=== PATIENT | male | born 1935 | race Caucasian/White ===

== ENCOUNTER 2017-06-20 08:45 | Inpatient (IN) | payer MEDICARE, MEDICAID ==
[2017-06-20 09:21] LABS: Hemoglobin 14.4 g/dL (14.0-18.0); Mean Corpuscular HGB CONC 31.7 g/dL (32.0-36.0); Mean Corpuscular Hemoglobin 33.1 pg (27.0-31.0); Mean Platelet Volume 6.5 fL (7.4-10.4); Platelet Count 178 thou/uL (130-400); RBC Distribution Width 13.4 % (11.5-14.5); Red Blood Cell (RBC) Count 4.35 mill/uL (4.70-6.10); White Blood Cell (WBC) Count 18.4 thou/uL (4.8-10.8)
[2017-06-20 09:40] LABS: Band 11 % (5-11); Dohle Bodies SLIGHT; Lymphocytes 1 % (21-51); MDiff Complete? YES; Macrocytosis SLIGHT = 6-15 cells (100X) (0-5/hpf); Monocytes 8 % (0-10); Neutrophil 80 % (42-75); PLT Morphology Comment Appears Adequate; Toxic Granulation SLIGHT; Vacuoles SLIGHT
--- NOTE | 2017-06-20 09:57 | RAD ---
SINGLE VIEW OF THE CHEST: COMPARISON: None. HISTORY: Diarrhea and frequent urination. Diabetic. The patient cannot remember the last time he took his in sulin. FINDINGS: A single view of the chest shows an enlarged cardiomediastinal silhouette. There is no evidence of c onsolidation, mass, or pleural effusion. There is a calcified left hilar lymph node. IMPRESSION: Cardiomegaly. POS: [facility]
[2017-06-20 09:59] LABS: ALT (SGPT) 31 U/L (8-55); AST (SGOT) 24 U/L (5-34); Albumin 3.4 g/dL (3.4-4.8); Alkaline Phosphatase 177 U/L (40-150); Anion Gap 29 mmol/L (10-20); BUN (Urea Nitrogen) 35 mg/dL (8.4-25.7); Bilirubin, Total 0.5 mg/dL (0.2-1.2); CK (CPK) 231 U/L (30-200); Calc. Creatinine Clearance 0 mL/min (70-130); Calcium 9.4 mg/dL (7.8-10.44); Carbon Dioxide 10 mmol/L (23-31); Chloride 97 mmol/L (98-107); Estimated GFR-MDRD 44; Globulin 3.6 g/dL (2.4-3.5); Glucose 445 mg/dL (83-110); Lipase 18 U/L (8-78); Potassium 4.3 mmol/L (3.5-5.1); Sodium 132 mmol/L (136-145)
[2017-06-20 10:04] LABS: CKMB 6.2 ng/mL (0-6.6)
--- NOTE | 2017-06-20 10:08 | RAD ---
LEFT FOOT 3 VIEWS: HISTORY: Diabetic foot ulcer. Left foot pain. FINDINGS: Lisfranc joint alignment is anatomic. There is pes planus on the lateral view. Prominent osteophyto sis is present throughout the foot. Plantar and Achilles enthesophytes arise from the posterior aspe ct of the calcaneus. There is deformity of the 1st metatarsal head and base of the proximal phalanx with complete loss of joint space and prominent osteophytosis. Subcortical cysts involve each side of the joint. Partial fusion is suspected. There is minimal hallux valgus. No radiopaque foreign bodies or soft tissue gas are apparent. 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 POS: [facility]
[2017-06-20 10:23] LABS: Troponin I 0.992 ng/mL (< 0.028)
[2017-06-20] MEDS ORDERED: Piperacillin/Tazobactam 4.5 GM in Sodium Chloride 0.9% 100 ML IVPB SCH (10:30)
[2017-06-20 10:31] LABS: Actual Bicarbonate (HCO3a) 10.1 mEq/L (22-26); Base Excess (BEa) -14.2 mEq/L (0 (+/-) 2.5); CO2 Tension 21.4 mmHg (35.0-45.0); Hematocrit-ABG 46.9 % (42.0-52.0); Hemoglobin (Hb) 14.3 g/dL (14.0-18.0); O2 Tension (PaO2) 90.4 mmHg (80.0-100.0); pH, Arterial 7.29 (7.35-7.45)
[2017-06-20 10:32] LABS: Analyzer IN Cardio ER; Calcium, Ionized 1.2 mmol/L (1.12-1.30); Puncture Site LRA
[2017-06-20] MEDS ORDERED: Insulin Regular 300 UNITS/3 ML VIAL ONE (10:46)
[2017-06-20 10:49] LABS: Magnesium 2.1 mg/dL (1.6-2.6); Phosphorus 3.1 mg/dL (2.3-4.7)
[2017-06-20] MEDS ORDERED: Insulin Regular 100 units/100 ml in NS IVPB SCH ×2 (11:00→20:45)
[2017-06-20] MEDS ORDERED: NS 0.9% w/ 20 MEQ KCL 1,000 ML IV PRN ×2 (11:24)
[2017-06-20] MEDS ORDERED: Ondansetron HCl/PF 4 MG/2 ML Vial IVP PRN (11:24)
[2017-06-20] MEDS ORDERED: CCU Electrolyte Replacement 1 EACH IVPB ONE (11:24)
[2017-06-20] MEDS ORDERED: Ondansetron ODT 4 MG TAB PO PRN (11:24)
[2017-06-20] MEDS ORDERED: Sodium Chloride 0.9% 1,000 ML IV PRN ×4 (11:24)
[2017-06-20] MEDS ORDERED: Dextrose 5 %-0.45 % NaCl 1,000 ML IV PRN (11:24)
[2017-06-20] MEDS ORDERED: D5 1/2 NS w/20 mEq KCL 1,000 ML IV PRN (11:24)
[2017-06-20] MEDS ORDERED: Potassium Chloride 40 MEQ in Premix Bag 1 BAG IVPB PRN (11:45)
[2017-06-20] MEDS ORDERED: Potassium Phosphate 15 MMOL in Sodium Chloride 0.9% 250 ML 250 ML IV PRN (11:45)
[2017-06-20] MEDS ORDERED: Potassium Phosphate 12 MMOL in Sodium Chloride 0.9% 250 ML 250 ML IV PRN (11:45)
[2017-06-20] MEDS ORDERED: Magnesium 2 GM/NS 0.9% 100 ML 2 GM in Premix Bag 1 BAG IVPB PRN (11:45)
[2017-06-20] MEDS ORDERED: Potassium Phosphate 9 MMOL in Sodium Chloride 0.9% 100 ML IVPB PRN (11:45)
[2017-06-20] MEDS ORDERED: Magnesium Oxide 400 MG TAB PO PRN ×2 (11:45)
[2017-06-20] MEDS ORDERED: Potassium Chloride 40 MEQ in Sodium Chloride 0.9% 250 ML 250 ML IVPB PRN (11:45)
[2017-06-20] MEDS ORDERED: CCU ELECTROLYTE REPLACEMENT PROTOCOL FS PRN (11:45)
[2017-06-20] MEDS ORDERED: Bacitracin Zinc 1 Packet ONE (12:14)
[2017-06-20 12:23] LABS: Anion Gap 29 mmol/L (10-20); BUN (Urea Nitrogen) 36 mg/dL (8.4-25.7); Calc. Creatinine Clearance 0 mL/min (70-130); Calcium 8.9 mg/dL (7.8-10.44); Carbon Dioxide 10 mmol/L (23-31); Chloride 101 mmol/L (98-107); Estimated GFR-MDRD 46; Glucose 367 mg/dL (83-110); Potassium 4.1 mmol/L (3.5-5.1); Sodium 136 mmol/L (136-145)
[2017-06-20 13:17] LABS: Bilirubin Moderate (Negative); Blood, Urine Large (Negative); Clarity CLOUDY (Clear); Glucose, Urine (Dipstick) >=1000 mg/dL (Negative); Leukocyte Small (Negative); Nitrite Negative (Negative); Protein, Urine (Dipstick) 100 mg/dL (Neg-Trace); Specific Gravity, Urine 1.034 (1.002-1.036); Urobilinogen 0.2 mg/dL (0.2-1.0); pH, Urine 5.5 (5.0-9.0)
[2017-06-20 13:19] LABS: Hyaline Casts/LPF 0-3 HYALINE CAST LPF (0-3 Hyaline); Pathc Cast-AUWi Flag 0.13 (0-2.49); Squamous Epithelial 0-3 HPF (0-3)
[2017-06-20 13:22] LABS: Yeast-AUWi Flag 175.7 (0-25.0)
[2017-06-20 13:32] LABS: Bacteria/HPF 3+ HPF (None Seen); Yeast-All Forms None Seen HPF (None Seen)
[2017-06-20 13:42] LABS: Lactic Acid 3.4 mmol/L (0.5-2.2)
[2017-06-20 15:43] LABS: Troponin I 1.075 ng/mL (< 0.028)
[2017-06-20 16:23] LABS: Anion Gap 21 mmol/L (10-20); BUN (Urea Nitrogen) 38 mg/dL (8.4-25.7); Calc. Creatinine Clearance 0 mL/min (70-130); Calcium 9.5 mg/dL (7.8-10.44); Carbon Dioxide 16 mmol/L (23-31); Chloride 104 mmol/L (98-107); Estimated GFR-MDRD 45; Glucose 222 mg/dL (83-110); Potassium 3.9 mmol/L (3.5-5.1); Sodium 137 mmol/L (136-145)
[2017-06-20 18:43] LABS: Anion Gap 18 mmol/L (10-20); BUN (Urea Nitrogen) 38 mg/dL (8.4-25.7); Calc. Creatinine Clearance 64 mL/min (70-130); Carbon Dioxide 16 mmol/L (23-31); Chloride 107 mmol/L (98-107); Estimated GFR-MDRD 51; Glucose 177 mg/dL (83-110); Potassium 4.1 mmol/L (3.5-5.1); Sodium 137 mmol/L (136-145)
[2017-06-20 18:55] LABS: Troponin I 1.366 ng/mL (< 0.028)
[2017-06-20] MEDS: Piperacillin/Tazobactam 3.375 GM in Sodium Chloride 0.9% 100 ML IVPB SCH ×2 (19:45→23:57)
[2017-06-20] MEDS: Acetaminophen 650 MG Suppository PR PRN (19:47)
--- NOTE | 2017-06-20 19:54 | RAD ---
PORTABLE CHEST: 06/20/17 HISTORY: Shortness of breath. COMPARISON: Comparison made to film earlier today at 9:34 a.m. FINDINGS/IMPRESSION: Mild cardiomegaly again noted. Calcified lymph nodes again seen in the mediastinum. The lungs remain clear. No interval change noted. POS: [facility]
[2017-06-20 20:03] LABS: Actual Bicarbonate (HCO3a) 18.7 mEq/L (22-26); Base Excess (BEa) -3.2 mEq/L (0 (+/-) 2.5); CO2 Tension 25.8 mmHg (35.0-45.0); Hematocrit-ABG 43.9 % (42.0-52.0); Hemoglobin (Hb) 14.1 g/dL (14.0-18.0); O2 Tension (PaO2) 77.1 mmHg (80.0-100.0); pH, Arterial 7.48 (7.35-7.45)
[2017-06-20 20:04] LABS: Calcium, Ionized 1.2 mmol/L (1.12-1.30); Puncture Site LRA
[2017-06-20] MEDS ORDERED: Dextrose 50% Abboject 50 ML SYRINGE SLOW IVP PRN (20:24)
[2017-06-20] MEDS ORDERED: Dextrose 5% in Water 1,000 ML IV PRN (20:24)
[2017-06-20] MEDS: Sodium Chloride 0.9% 1,000 ML IV SCH (20:39)
[2017-06-20] MEDS ORDERED: Vancomycin HCl 1 GM in Premix Bag 1 BAG IVPB SCH (21:00)
--- NOTE | 2017-06-20 21:02 | CON ---
DATE OF CONSULTATIONS: 06/20/2017 REASON FOR CONSULTATION: Shortness of breath, nonsustained. HISTORY OF PRESENT ILLNESS: Mr. Cordero is a very pleasant 81-year-old white gentleman who comes to the hospital for increased shortness of breath and diarrhea. He came in via EMS as he was having a lot of frequent urination with diarrhea for the last week. He has a diagnosis of type 2 diabetes and has not had any diabetic medications for a long long time. He lives alone. He really does not get any help, does not go to doctor visits. He has been eating and drinking and this is all per chart review . Denies any fever or chills. No chest pain, tightness, or pressure. On admission, he was diagnose d with urinary tract infection and possible osteomyelitis of the foot and admitted for this. He was also started on insulin drip for concerns of possible DKA. He was also started on IV antibiotics for all this. During his evaluation, troponins were drawn, they were positive, so Cardiology is being c onsulted for this. PAST MEDICAL HISTORY: 1. Type 2 diabetes. 2. Hypertension. 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 PAST SURGICAL HISTORY: 1. Appendectomy. 2. Right wpbev-rcg-bqnp amputation. SOCIAL HISTORY: He drinks whiskey at least five drinks every day. Denies any drug use. He smokes a bout half a pack a day for the last 30 years. OUTPATIENT MEDICATIONS: None. ALLERGIES: ASPIRIN. REVIEW OF SYSTEMS: A 12-point review of system was done; it is all negative unless stated in the his tory of present illness. PHYSICAL EXAMINATION: VITAL SIGNS: Temperature 101, pulse 103, respiration rate 30, satting 94% on 4 liters, blood pressur e 130/76. GENERAL: Awake, alert, oriented x3, in mild respiratory distress. HEENT: Normocephalic, atraumatic. NECK: Supple, no JVD. LUNGS: Have mild crackles at the bilateral bases. These are dry as they improve with cough and tach ypneic. CARDIOVASCULAR: S1, S2. No S3 or S4, mildly tachycardic. There is a grade 2/6 systolic murmur in t he right upper sternal border. ABDOMEN: Soft. Positive bowel sounds. EXTREMITIES: No edema. SKIN: Warm and dry. LABORATORY WORK: Reviewed. White count 18,000, hemoglobin 14, hematocrit 45, platelet count of 178. ABG on admission; pH was 7.29 with a CO2 of 21, improved now at 7.48 with a CO2 of 25. Chemistries initially, creatinine at 1.51, lactic acid was 2.6. BNP was 1461, troponin went from 0.9 to 1.03 to 1.07 to 1.36. Creatinine has improved now to 1.34 and glucose initially 445, down to 161 now. Lipase was normal. Albumin of 3.4. EKG is reviewed. Chest x-ray was reviewed on admission, did not show any acute cardiopulmonary issues. Repeat chest x -ray now due to increased shortness of breath shows stable chest x-ray which would support my physica l exam. ASSESSMENT: 1. Non-ST elevation myocardial infarction: Most likely demand ischemia from septic type picture. 2. Urinary tract infection. 3. Possible osteomyelitis of the foot. 4. Most likely peripheral vascular disease. 5. Tobacco abuse. 6. Poorly controlled diabetes. 7. Metabolic acidosis, most likely due to lactic acidosis and sepsis. 8. Acute hypoxic respiratory insufficiency. PLAN: 1. We will do an echocardiogram to assess LV function and valvular structures. 2. Doubt that he has DKA. His sugar is better. His anion gap is most likely related to lactic acid osis. We will stop the insulin drip. We will control with sliding scale. We will put him on just 1 50 of normal saline for now with no D5. We will transfer him to the ICU overnight to make sure that he is well and that we keep a close eye on him as his likelihood of decompensation is high. 3. Continue IV antibiotics per primary team. Thank you for letting us participate in the care of this patient. We will follow. Over 45 minutes of critical care time was delivered bedside.
--- NOTE | 2017-06-20 22:53 | HP ---
CHIEF COMPLAINT: Diarrhea and frequent urination. HISTORY OF PRESENT ILLNESS: This is an 81-year-old noncompliant patient with history of diabetes, wh o has never been on any insulin for the past 6 years, who presented here via EMS with history of diar harry and frequent urination; however, on presentation, the patient is noted to be febrile with a yoana rely elevated blood sugar and very acidotic consistent with DKA. The patient is now being admitted f or DKA in the context of insulin noncompliance. Patient also noted with some left level lower extrem ity diabetic ulcers, likely the source of sepsis in this patient, the patient seems to be in critical condition and therefore will be admitted to IMCU to be managed very closely. PAST MEDICAL AND SURGICAL HISTORY: Significant for diabetes, poorly controlled type 2, hypertension, right BKA due to diabetic foot infection, status post appendectomy. SOCIAL HISTORY: Significant for alcohol use. Denies illicit drugs. Smokes and has been doing that for more than 30 years. REVIEW OF SYSTEMS: As documented in the body of the history, but the system review in this patient i s highly limited as patient only answer yes to everything. MEDICATIONS: Reviewed but of note, patient is very noncompliant. PHYSICAL EXAMINATION: GENERAL: The patient was found to be ill-looking and noted with the following. VITAL SIGNS: Temperature 101, pulse 103, respiratory rate of 30, O2 sat 94% with blood pressure of 1 30/76. HEENT: Remarkable for dry oral mucosa. No conjunctival injection or icterus. NECK: Supple. CARDIOVASCULAR SYSTEM: First and second heart sounds were heard, tachycardic. RESPIRATORY SYSTEM: Clear to auscultation. DIGESTIVE SYSTEM: Revealed a distended abdomen. EXTREMITIES: No peripheral edema. SKIN: No new gross rash. LYMPHATICS: No peripheral lymphadenopathy. LABORATORY INVESTIGATION: Showed a white count of 18,400. Chemistry showed a creatinine of 1.5, BUN of 38. Urinalysis showed 3+ bacteria with a lot of glucose and ketones. IMPRESSION: 1. Diabetic ketoacidosis in the context of problem #2. 2. Medical noncompliance. 3. Type 2 diabetes mellitus, poorly controlled. 4. Sepsis, query source, possibly from the diabetic foot versus urinary tract infection. 5. Non-ST elevation myocardial infarction. PLAN: 1. The patient is to be admitted to the Critical Care Unit or IMCU (intermediate medical care unit). 2. IV fluid resuscitation. 3. Diabetic ketoacidosis protocol treatment. 4. Broad-spectrum antibiotics, status post blood cultures have been drawn. 5. Cardiology consultation. 6. Further management to be dependent on the clinical course. Condition of patient at this time of dictation is critical. Further management will be dependent on the clinical course.
[2017-06-21] MEDS: HumaLOG 300 UNITS/3 ML VIAL SC PRN ×5 (00:11→20:56)
[2017-06-21] MEDS: Sodium Chloride 0.9% 1,000 ML IV SCH ×2 (05:13→09:47)
[2017-06-21] MEDS: Piperacillin/Tazobactam 3.375 GM in Sodium Chloride 0.9% 100 ML IVPB SCH ×3 (05:15→17:00)
[2017-06-21 06:19] LABS: Anion Gap 20 mmol/L (10-20); BUN (Urea Nitrogen) 47 mg/dL (8.4-25.7); Calc. Creatinine Clearance 62 mL/min (70-130); Calcium 8.6 mg/dL (7.8-10.44); Carbon Dioxide 15 mmol/L (23-31); Cardiac Risk 5.9 (Less than 4.5); Chloride 107 mmol/L (98-107); Cholesterol 107 mg/dl (< 200 Desired); Estimated GFR-MDRD 49; Glucose 342 mg/dL (83-110); HDL Cholesterol 18 mg/dL (>60 Neg Risk); LDL Cholesterol, Calculated 62 mg/dL; Potassium 3.9 mmol/L (3.5-5.1); Sodium 138 mmol/L (136-145); Triglycerides 137 mg/dL (Less than 150)
[2017-06-21 06:20] LABS: Band 14 % (5-11); Hemoglobin 13.1 g/dL (14.0-18.0); Lymphocytes 5 % (21-51); MDiff Complete? YES; Mean Corpuscular HGB CONC 32.1 g/dL (32.0-36.0); Mean Corpuscular Hemoglobin 32.9 pg (27.0-31.0); Mean Platelet Volume 6.8 fL (7.4-10.4); Monocytes 6 % (0-10); Neutrophil 75 % (42-75); Platelet Count 170 thou/uL (130-400); RBC Distribution Width 13.7 % (11.5-14.5); Red Blood Cell (RBC) Count 3.98 mill/uL (4.70-6.10); White Blood Cell (WBC) Count 16.2 thou/uL (4.8-10.8)
[2017-06-21] MEDS ORDERED: Sodium Bicarb 50 MEQ/50 ML Abboject 8.4% SYRINGE IVP SCH (09:00)
[2017-06-21] MEDS ORDERED: Enoxaparin Sodium 30 MG/0.3 ML SYRINGE SC SCH (09:00)
[2017-06-21] MEDS ORDERED: FLU VACC TS2017-18 (>65YR) 0.5 ML SYRINGE IM ONE (09:00)
[2017-06-21] MEDS ORDERED: Prevnar 13-Val Conj/PF 0.5 ML SYRINGE IM ONE (09:00)
[2017-06-21] MEDS ORDERED: Sodium Bicarbonate 100 MEQ in D5 1/4 NS 1,000 ML IV SCH (09:00)
[2017-06-21] MEDS: Enoxaparin Sodium 40 MG/0.4 ML SYRINGE SC SCH (09:31)
[2017-06-21] MEDS ORDERED: metFORMIN 500 MG TAB PO SCH (11:30)
[2017-06-21] MEDS ORDERED: Insulin Detemir 100 UNITS/ML 10 UNITS in Pre-Filled Syringe 1 EACH SC STA (12:11)
--- NOTE | 2017-06-21 12:13 | PDOC.PN ---
- Subjective Encounter Start Date: 06/21/17 Encounter Start Time: 08:50 Subjective: no sob, feels better now -: says he cant take care of himself by staying alone - Objective Resuscitation Status: Resuscitation Status DNR:Do Not Resuscitate MAR Reviewed: Yes Vital Signs & Weight: Vital Signs (12 hours) Temp Pulse Resp Pulse Ox 06/21/17 11:00 98.2 F 06/21/17 07:44 98.3 F 92 27 H 94 L 06/21/17 07:00 98.3 F 06/21/17 06:36 88 06/21/17 04:00 98 F 06/21/17 01:38 78 Weight Admit Weight 235 lb 14.4 oz Weight 236 lb 8.896 oz Most Recent Monitor Data Heart Rate from ECG 91 NIBP 141/70 NIBP BP-Mean 105 Respiration from ECG 29 SpO2 100 I&O: 06/20/17 06/21/17 06/22/17 06:59 06:59 06:59 Intake Total 4612 540 Output Total 675 435 Balance 3937 105 Result Diagrams: 06/21/17 05:16 06/21/17 05:16 Additional Labs: Accuchecks 06/21/17 06/21/17 06/21/17 11:12 05:18 00:09 POC Glucose 281 H 319 H 332 H 06/20/17 06/20/17 06/20/17 19:57 18:07 16:38 POC Glucose 214 H 161 H 186 H 06/20/17 06/20/17 06/20/17 15:58 15:27 14:33 POC Glucose 215 H 219 H 361 H 06/20/17 06/20/17 13:31 12:32 POC Glucose 331 H 368 H Phys Exam - Physical Examination HEENT: PERRLA, sclera anicteric dry mucosa Neck: no JVD, supple Respiratory: no wheezing, no rales Cardiovascular: RRR, no significant murmur Gastrointestinal: soft, non-tender, positive bowel sounds Musculoskeletal: pulses present left gr toe has plantar ulcer which is dry, right bka Neurological: non-focal, moves all 4 limbs Psychiatric: A&O x 3 Dx/Plan (1) Sepsis Code(s): A41.9 - SEPSIS, UNSPECIFIED ORGANISM Status: Acute Qualifiers: Sepsis type: sepsis due to unspecified organism Qualified Code(s): A41.9 - Sepsis, unspecified organism (2) DM (diabetes mellitus), type 2, uncontrolled Code(s): E11.65 - TYPE 2 DIABETES MELLITUS WITH HYPERGLYCEMIA Status: Acute Qualifiers: Diabetes mellitus complication status: with unspecified complications Diabetes mellitus termite exterminator helper insulin use: with fci use Qualified Code(s) : E11.8 - Type 2 diabetes mellitus with unspecified complications; E11.65 - Type 2 diabetes mellitus with hyperglycemia; E11.65 - Type 2 diabetes mellitus with hyperglycemia; E11.65 - Type 2 diabetes mellitus with hyperglycemia; E11.65 - Type 2 diabetes mellitus with hyperglycemia; Z79.4 - prison (current ) use of insulin; Z79.4 - termite treater (current) use of insulin; Z79.4 - prison (current) use of insulin; Z79.4 - prison (current) use of insulin (3) left first toe osteomyelitis Status: Acute (4) NSTEMI (non-ST elevated myocardial infarction) Code(s): I21.4 - NON-ST ELEVATION (NSTEMI) MYOCARDIAL INFARCTION Status: Acute (5) HTN (hypertension) Code(s): I10 - ESSENTIAL (PRIMARY) HYPERTENSION Status: Chronic Qualifiers: Hypertension type: essential hypertension Qualified Code(s): I10 - Essential (primary) hypertension (6) BENY (acute kidney injury) Code(s): N17.9 - ACUTE KIDNEY FAILURE, UNSPECIFIED Status: Acute (7) Metabolic acidosis Code(s): E87.2 - ACIDOSIS Status: Acute - Plan is on zosyn and vanc -: reduce iv fluids to 100mls/hr -: discussed code status with pt and is a DNR -: consult for osteo of left foot -: add levemir to metformin for dm * . Review of Systems - Medications/Allergies Allergies/Adverse Reactions: Allergies Allergy/AdvReac Type Severity Reaction Status Date / Time No Known Allergies Allergy Verified 06/20/17 23:17 Medications: Current Medications Acetaminophen (Tylenol) 650 mg PO Q4H PRN PRN Reason: Headache/Fever or Pain Acetaminophen (Tylenol) 650 mg AR Q4H PRN PRN Reason: Fever/Mild Pain Last Admin: 06/20/17 19:47 Dose: 650 mg Dextrose/Water (Dextrose 50%) 25 gm SLOW IVP PRN PRN PRN Reason: Hypoglycemia Enoxaparin Sodium (Lovenox) 40 mg SC 0900 [facility] Last Admin: 06/21/17 09:31 Dose: 40 mg Glucagon (Glucagon) 1 mg IM PRN PRN PRN Reason: Hypoglycemia Piperacillin Sod/Tazobactam (Sod 3.375 gm/ Sodium Chloride) 100 mls @ 200 mls/ hr IVPB Q6HR [facility] Last Admin: 06/21/17 11:10 Dose: 100 mls Potassium Chloride 40 meq/ (Sodium Chloride) 270 mls @ 135 mls/hr IVPB ASDIR PRN PRN Reason: FOR SERUM K+ 2.5 - 3.5 Potassium Chloride 40 meq/ (Device) 100 mls @ 50 mls/hr IVPB ASDIR PRN PRN Reason: FOR SERUM K+ 2.5 - 3.5 Magnesium Sulfate 1 gm/ Sodium (Chloride) 102 mls @ 102 mls/hr IV PRN PRN PRN Reason: MAG LEVEL 1.4 - 2.0 Magnesium Sulfate 2 gm/ Device 100 mls @ 100 mls/hr IVPB ASDIR PRN PRN Reason: MAGNESIUM < 1.4 Potassium Phosphate 9 mmol/ (Sodium Chloride) 103 mls @ 25.75 mls/hr IVPB ASDIR PRN PRN Reason: Phosphate 1.0-1.8 Potassium Phosphate 12 mmol/ (Sodium Chloride) 254 mls @ 63.5 mls/hr IV ASDIR PRN PRN Reason: Serum phosphate 0.5-0.9 Potassium Phosphate 15 mmol/ (Sodium Chloride) 255 mls @ 63.75 mls/hr IV ASDIR PRN PRN Reason: Serum Phos < 0.5 Sodium Chloride (Normal Saline 0.9%) 1,000 mls @ 150 mls/hr IV .Q6H40M [facility] Last Admin: 06/21/17 09:47 Dose: Not Given Dextrose/Water (D5w) 1,000 mls @ 0 mls/hr IV .Q0M PRN; As Directed PRN Reason: Hypoglycemia Sodium Bicarbonate 100 meq/ (Dextrose/Sodium Chloride) 1,100 mls @ 75 mls/hr IV .[id number] [facility] Last Admin: 06/21/17 09:47 Dose: 1,100 mls Insulin Detemir 10 units/ (Miscellaneous Medication) 0.1 mls @ 0 mls/hr SC BID KAYLIN Insulin Detemir 10 units/ (Miscellaneous Medication) 0.1 mls @ 0 mls/hr SC ONE STA Stop: 06/21/17 12:12 Insulin Human Lispro (Humalog) 0 units SC .MILD SLIDING SCALE PRN PRN Reason: Mild Correctional Scale Last Admin: 06/21/17 11:11 Dose: 3 units Magnesium Oxide (Magnesium Oxide) 400 mg PO BIDPRN PRN PRN Reason: FOR SERUM MAG 1.4 - 2.0 Magnesium Oxide (Magnesium Oxide) 800 mg PO PRN PRN PRN Reason: FOR SERUM MAG < 1.4 Metformin HCl (Glucophage) 500 mg PO BID-WM [facility] Metformin HCl (Glucophage) 500 mg PO NOW KAYLIN Stop: 06/21/17 13:30 Last Admin: 06/21/17 11:27 Dose: 500 mg Miscellaneous Medication (Phos-Nak) 1 pkt PO TIDPRN PRN PRN Reason: FOR PHOS LEVEL 1.0 - 1.8 Miscellaneous Medication (Phos-Nak) 2 pkt PO TIDPRN PRN PRN Reason: FOR PHOS LEVEL 0.5 - 1.0 Ccu Electrolyte (Replacement Protocol) 0 each FS PRN PRN PRN Reason: FOR ELECTROLYTE REPLACEMENT Ondansetron HCl (Zofran Odt) 4 mg PO Q6H PRN PRN Reason: Nausea/Vomiting Ondansetron HCl (Zofran) 4 mg IVP Q6H PRN PRN Reason: Nausea/Vomiting Potassium Chloride (K-Dur) 40 meq PO ASDIR PRN PRN Reason: FOR SERUM K+ 2.5 - 3.5 Potassium Chloride (Klor-Con) 40 meq PER TUBE ASDIR PRN PRN Reason: FOR SERUM K+ 2.5-3.5
[2017-06-21] MEDS ORDERED: SODIUM CHLORIDE 0.45% IV SCH (12:45)
[2017-06-21] MEDS ORDERED: [UNRECOGNIZED DRUG - OTHER] IV SCH (12:45)
[2017-06-21] MEDS ORDERED: SODIUM BICARBONATE IV SCH (12:45)
--- NOTE | 2017-06-21 16:54 | PDOC.CTH ---
Cardiology Progress Note - Subjective He is feeling better today. breathing is improved. - Objective Vital Signs Temp Pulse Resp Pulse Ox 06/21/17 15:00 98.1 F 06/21/17 11:00 98.2 F 06/21/17 07:44 98.3 F 92 27 H 94 L 06/21/17 07:00 98.3 F 06/21/17 06:36 88 Admit Weight 235 lb 14.4 oz Weight 236 lb 8.896 oz 06/20/17 06/21/17 06/22/17 06:59 06:59 06:59 Intake Total 4612 1040 Output Total 675 865 Balance 3937 175 - Physical Examination General/Neuro: alert & oriented x3, other: (on the BiPAP.) Neck: no JVD present Lungs: other: (reduced breath sounds. ) Heart: RRR Abdomen: NT/ND Extremities: other: (no edema) - Telemetry Telemetry Rhythm: NSR - Labs Result Diagrams: 06/21/17 05:16 06/21/17 05:16 Troponin/CKMB CK-MB (CK-2) 6.2 ng/mL (0-6.6) 06/20/17 08:59 Troponin I 1.366 ng/mL (< 0.028) H* 06/20/17 18:07 - Assessment/Plan 1. NSTEMI, likely demand ischemia 2. UTI 3. Osteomyelitis of the halux 4. PVD most likely 5. Poorly controlled diabetes 6. Metabolic acidosis PLAN: - Continue supportive care. - Conservative therapy for NSTEMI. - Echo pending.
[2017-06-21] MEDS: metFORMIN 500 MG TAB PO SCH (17:00)
[2017-06-21] MEDS: Insulin Detemir 100 UNITS/ML 10 UNITS in Pre-Filled Syringe 1 EACH SC SCH (20:56)
--- NOTE | 2017-06-21 22:28 | CON ---
DATE OF CONSULTATION: 06/21/2017 HISTORY OF PRESENT ILLNESS: Mr. Cordero is very pleasant, but independent 81-year-old. He presented yesterday with complaints of polyuria and diarrhea. He was noted to be hyperglycemic. He also noted to have almost no urine in his bladder when the Fole y was replaced, restarted urinating with hydration. He was admitted with a diagnosis of diabetic ketoacidosis, but he has never been a type 1 diabetic an d is also 81 years of age and has a long history of not taking oral agents, very unlikely he has type 1 diabetes. Subsequently, was transferred from the IMU to the Critical Care Unit by Cardiology last night because of his metabolic acidosis on presentation and his tachypnea. His BiPAP ventilated overnight and has done extremely well with that. This was removed this morning. He says he is feeling much better. He also grew very quickly tells me that he never wants to be mechanically ventilated. He does also very quickly admit that he needs to be somewhere where somebody can care for him as he i s unable to care for himself anymore. PAST MEDICAL HISTORY: 1. Remarkable for diabetes. 2. History of a right BKA secondary to infection in his foot. 3. History of nonhealing ulcers on his left foot. 4. History of an appendectomy. SOCIAL HISTORY: He is a smoker and a daily drinker by report. ALLERGIES: He has no reported drug allergies. FAMILY HISTORY: Negative for lung disease at an early age. ALLERGIES: He reports an allergy to ASPIRIN. REVIEW OF SYSTEMS: Twelve-point is otherwise negative. PHYSICAL EXAMINATION: VITAL SIGNS: Heart rate is in the 90s, oximetry is 91, blood pressure 143/58, respiratory rates in t he 20s to low 30s. HEENT: Pupils are equal. Sclerae is anicteric. NECK: Supple. LUNGS: Clear. HEART: Regular rhythm, no S3. ABDOMEN: Soft and nontender. EXTREMITIES: Without asymmetry. LABORATORY DATA: White count 16.2, hemoglobin 13.1, platelets 170, 14% bands on his peripheral smear today. Sodium 138, potassium 3.9, chloride 107, bicarbonate 15, BUN 47, creatinine 1.4, creatinine was 1.51 yesterday. Urinalysis showed glucose was surprisingly on 100 mg per deciliter of protein, pH yesterd ay was 7.29, CO2 of 21, pO2 of 90, this improved to 7.248, CO2 of 25, pO2 of 77 yesterday evening. IMPRESSION: Beta hydroxybutyrate was high, but I suspect this is a false positive secondary to starv ation ketosis. IMPRESSION: 1. Severe intravascular volume depletion. 2. Heavy alcohol use. 3. Heavy tobacco use. 4. Urinary tract infection with a low colony forming unit count of Staph aureus, it is unclear wheth er this is a contaminant or pathogen given the low count, I would argue that it may be a contaminant. At some point, Urology input might be solicited for an opinion regarding the possibility of this bein g prostatitis and might require longer course of antimicrobial therapy. He appears to have improved significantly. His acid base disorder appears to be improving with hydra tion, still has an anion gap of 16, but also has renal insufficiency, which may account for this. I do not believe that this is diabetic ketoacidosis. I would continue with aggressive hydration and aggressive insulin sliding scale. His creatinine is l ow enough where we can start him on metformin. It is unlikely he will be compliant with insulin if arden franklin is discharge to home. He may benefit from going into some type of processing supervisor care environment. He appears to be stabilizing. Bicarbonate was ordered and a bicarbonate drip was started because of his renal insufficiency. Actually, I went back to see him after his BiPAP had been off for a while and I talked to him, comple tely oriented. I talked to him about end of life issues, life support, CPR, etc. Very quickly he to ld me in very graphic language that he never wanted to be intubated. I informed him we would honor his wishes, DO NOT RESUSCITATE orders have been placed on the chart. Edson franklin will continue with other aggressive care. This is a 70-minute critical care consult of which greater than 50% of the time was spent at the beds [place] on the unit, coordinating care with the staff and reviewing radiographs, lab work, and old record s.
--- NOTE | 2017-06-21 23:36 | HP ---
HISTORY OF PRESENT ILLNESS: Doroteo granado is an 81-year-old male DNR. I have been asked to see him rega rding his left foot diabetic ulcer. Patient is on BiPAP. He is a DNR. He has diabetes mellitus. Sonia franklin has had right gnrsv-uqr-sxxn amputation 12 years ago. He was admitted with sepsis and it was thoug ht that his foot may be the source. He has had an ulcer on for his left great toe, distal plantar fo r the past nine months, he has not sought medical attention. He had wound over his medial left metat arsophalangeal joint area that healed secondary. He reports an operation in an open wound healed sec ondari. On admission, he had x-rays of the left foot that demonstrated degenerative changes of lef t foot some destructive changes of first metatarsophalangeal joint. Evaluating the left foot reveals that the callus at the distal plantar great toe is superficial and d oes not track. There is no evidence of infection. This is a chronic callus. It is not the source o f his infection. Inspection of the foot reveals that he has a scar on the medial aspect of the metat arsophalangeal joint area, but there is no cellulitis, no swelling, and no evidence of infection. I believe the left foot radiological changes in the metatarsal are due to old previous surgery and he aling from previous wounds. There is no active problems that is responsive for sepsis. He does not need surgical attention to his left foot. Right moszv-pnk-tcym amputation stump is well healed. MEDICATIONS: Outpatient not known, inpatient vancomycin and Zosyn. TOBACCO: One-half pack per day. ALCOHOL: Occasionally. PAST SURGICAL HISTORY: Right BKA 12 years ago, left foot surgery several months ago, history of appe ndectomy. PAST MEDICAL HISTORY: Diabetes mellitus, hypertension, tobacco abuse. PHYSICAL EXAMINATION: VITAL SIGNS: 6 feet 1 inch, 136 pounds, 31 BMI, 94, 143/58, 35 respiratory rate. LUNGS: Clear to auscultation. CARDIAC: Regular rate and rhythm without murmur or gallop. ABDOMEN: Soft, nontender, obese. EXTREMITIES: Palpable femoral, popliteal pulses bilaterally. Right ulraq-szh-lbjz amputation stump well healed. Left foot great toe, distal great toe callus with superficial ulceration, no evidence o f infection, no cellulitis, no drainage, no sinus tracts. Patient has scarring over the medial aspec t of the metatarsophalangeal joint, left foot. There is no evidence of infection, no cellulitis, no swelling, no open wounds, no sinus tracts. LABORATORY DATA: White count 16, hemoglobin 13, BUN 47, creatinine 1.4. ASSESSMENT AND PLAN: 1. Sepsis. He is on vancomycin, Zosyn, antibiotic regimen should be considered change for his chron ic kidney disease. 2. Right qgium-acef-kcuxdbxffo status post. 3. Tobacco abuse. 4. Chronic diabetic callus, left great toe. No evidence of infection. 5. Degenerative changes of left foot and changes from old surgery of his left foot at the metatarsop halangeal joint area of the great toe, but no clinical evidence of infection and not responsible for sepsis. At this point, I will see him as needed. Please call if needed.
[2017-06-22] MEDS: Piperacillin/Tazobactam 3.375 GM in Sodium Chloride 0.9% 100 ML IVPB SCH ×4 (00:45→17:30)
[2017-06-22] MEDS: SODIUM BICARBONATE IV SCH ×2 (02:13→13:53)
[2017-06-22] MEDS: SODIUM CHLORIDE IV SCH ×2 (02:13→13:53)
[2017-06-22] MEDS: STERILE WATER IV SCH ×2 (02:13→13:53)
[2017-06-22 04:04] LABS: Anion Gap 13 mmol/L (10-20); BUN (Urea Nitrogen) 42 mg/dL (8.4-25.7); Calc. Creatinine Clearance 76 mL/min (70-130); Calcium 8.2 mg/dL (7.8-10.44); Carbon Dioxide 24 mmol/L (23-31); Chloride 106 mmol/L (98-107); Estimated GFR-MDRD 61; Glucose 288 mg/dL (83-110); Potassium 3.4 mmol/L (3.5-5.1); Sodium 140 mmol/L (136-145)
[2017-06-22] MEDS: Acetaminophen 325 MG TAB PO PRN ×2 (05:18→16:01)
[2017-06-22] MEDS: HumaLOG 300 UNITS/3 ML VIAL SC PRN ×3 (05:20→17:39)
[2017-06-22] MEDS: Potassium Chloride 20 MEQ TAB PO PRN (05:47)
[2017-06-22] MEDS: Enoxaparin Sodium 40 MG/0.4 ML SYRINGE SC SCH (08:27)
[2017-06-22] MEDS: metFORMIN 500 MG TAB PO SCH ×3 (08:27→21:29)
[2017-06-22] MEDS: Insulin Detemir 100 UNITS/ML 10 UNITS in Pre-Filled Syringe 1 EACH SC SCH (08:47)
--- NOTE | 2017-06-22 11:22 | PRG ---
DATE OF SERVICE: 06/22/2017 SUBJECTIVE: Clinically, he has severe sleep apnea. Whenever he falls to sleep , his sats dropped into the 70s. His BiPAP on as he is napping now. OBJECTIVE: VITAL SIGNS: Blood pressure 144/79, heart rate is 90, respiratory rate 25. LUNGS: Remarkable for coarse equal breath sounds. HEART: Regular rhythm. ABDOMEN: Soft. LABORATORY: Sodium 140, potassium 3.4, chloride 106, bicarb 24, BUN 42, creatinine 1.14. IMPRESSION: 1. Intravascular volume depletion. 2. Peripheral vascular disease with chronic ulcer on his left great toe and right bilateral knee amputation. 3. Diabetes, poorly controlled on no medication prior to admission. 4. Metabolic acidosis secondary to starvation ketosis on presentation. 5. Do not resuscitate status. 6. Obesity. PLAN: Continue empiric BiPAP. He has grown MRSA out of his urine, but this was in the low concentration. I am not sure that this needs to be treated aggressively. I will repeat a urine culture today. Urology consultation tomorrow (not today) would be reasonable. RICHELLE
--- NOTE | 2017-06-22 12:39 | PDOC.PN ---
- Subjective Encounter Start Date: 06/22/17 Encounter Start Time: 12:00 Subjective: on bipap with spo2 around 85-90% -: no chest pain or palp -: is moving all extremities - Objective Resuscitation Status: Resuscitation Status DNR:Do Not Resuscitate MAR Reviewed: Yes Vital Signs & Weight: Vital Signs (12 hours) Temp Pulse Resp Pulse Ox 06/22/17 11:00 98.5 F 06/22/17 10:42 87 06/22/17 07:04 98.7 F 91 26 H 93 L 06/22/17 07:00 98.7 F 06/22/17 06:41 91 06/22/17 04:00 98.5 F 06/22/17 02:45 89 Weight Admit Weight 235 lb 14.4 oz Weight 246 lb 4.101 oz Most Recent Monitor Data Heart Rate from ECG 84 NIBP 126/66 NIBP BP-Mean 95 Respiration from ECG 24 SpO2 100 I&O: 06/21/17 06/22/17 06/23/17 06:59 06:59 06:59 Intake Total 4612 3101 360 Output Total 675 1783 500 Balance 3937 1318 -140 Result Diagrams: 06/21/17 05:16 06/22/17 03:22 Additional Labs: Accuchecks 06/22/17 06/22/17 06/21/17 12:12 05:21 20:53 POC Glucose 255 H 249 H 269 H 06/21/17 06/20/17 16:59 17:24 POC Glucose 295 H 152 H Phys Exam - Physical Examination HEENT: PERRLA, sclera anicteric Neck: no JVD, supple Respiratory: no wheezing rhonchi+ Cardiovascular: RRR, no significant murmur Gastrointestinal: soft, non-tender, positive bowel sounds Musculoskeletal: pulses present, edema present Neurological: non-focal, moves all 4 limbs Psychiatric: A&O x 3 Dx/Plan (1) Sepsis Code(s): A41.9 - SEPSIS, UNSPECIFIED ORGANISM Status: Acute Qualifiers: Sepsis type: sepsis due to unspecified organism Qualified Code(s): A41.9 - Sepsis, unspecified organism (2) DM (diabetes mellitus), type 2, uncontrolled Code(s): E11.65 - TYPE 2 DIABETES MELLITUS WITH HYPERGLYCEMIA Status: Acute Qualifiers: Diabetes mellitus complication status: with unspecified complications Diabetes mellitus tank terminal gauger insulin use: without tank terminal gauger use Qualified Code( s): E11.8 - Type 2 diabetes mellitus with unspecified complications; E11.65 - Type 2 diabetes mellitus with hyperglycemia; E11.65 - Type 2 diabetes mellitus with hyperglycemia; E11.65 - Type 2 diabetes mellitus with hyperglycemia; E11.65 - Type 2 diabetes mellitus with hyperglycemia Comment: uncontrolled (3) left first toe osteomyelitis Status: Chronic (4) NSTEMI (non-ST elevated myocardial infarction) Code(s): I21.4 - NON-ST ELEVATION (NSTEMI) MYOCARDIAL INFARCTION Status: Acute (5) HTN (hypertension) Code(s): I10 - ESSENTIAL (PRIMARY) HYPERTENSION Status: Chronic Qualifiers: Hypertension type: essential hypertension Qualified Code(s): I10 - Essential (primary) hypertension (6) BENY (acute kidney injury) Code(s): N17.9 - ACUTE KIDNEY FAILURE, UNSPECIFIED Status: Acute Comment: stable (7) Metabolic acidosis Code(s): E87.2 - ACIDOSIS Status: Resolved - Plan gentle hydration -: encourage po intake -: is requiring bipap, h/o sleep apnea -: increase metformin to tid with levemir -: ef is 45% on echo, on zosyn, no intervention for left toe for now * . Review of Systems - Medications/Allergies Allergies/Adverse Reactions: Allergies Allergy/AdvReac Type Severity Reaction Status Date / Time No Known Allergies Allergy Verified 06/20/17 23:17 Medications: Current Medications Acetaminophen (Tylenol) 650 mg PO Q4H PRN PRN Reason: Headache/Fever or Pain Last Admin: 06/22/17 05:18 Dose: 650 mg Acetaminophen (Tylenol) 650 mg NE Q4H PRN PRN Reason: Fever/Mild Pain Last Admin: 06/20/17 19:47 Dose: 650 mg Dextrose/Water (Dextrose 50%) 25 gm SLOW IVP PRN PRN PRN Reason: Hypoglycemia Enoxaparin Sodium (Lovenox) 40 mg SC 0900 [facility] Last Admin: 06/22/17 08:27 Dose: 40 mg Glucagon (Glucagon) 1 mg IM PRN PRN PRN Reason: Hypoglycemia Piperacillin Sod/Tazobactam (Sod 3.375 gm/ Sodium Chloride) 100 mls @ 200 mls/ hr IVPB Q6HR [facility] Last Admin: 06/22/17 12:18 Dose: 100 mls Potassium Chloride 40 meq/ (Sodium Chloride) 270 mls @ 135 mls/hr IVPB ASDIR PRN PRN Reason: FOR SERUM K+ 2.5 - 3.5 Potassium Chloride 40 meq/ (Device) 100 mls @ 50 mls/hr IVPB ASDIR PRN PRN Reason: FOR SERUM K+ 2.5 - 3.5 Magnesium Sulfate 1 gm/ Sodium (Chloride) 102 mls @ 102 mls/hr IV PRN PRN PRN Reason: MAG LEVEL 1.4 - 2.0 Magnesium Sulfate 2 gm/ Device 100 mls @ 100 mls/hr IVPB ASDIR PRN PRN Reason: MAGNESIUM < 1.4 Potassium Phosphate 9 mmol/ (Sodium Chloride) 103 mls @ 25.75 mls/hr IVPB ASDIR PRN PRN Reason: Phosphate 1.0-1.8 Potassium Phosphate 12 mmol/ (Sodium Chloride) 254 mls @ 63.5 mls/hr IV ASDIR PRN PRN Reason: Serum phosphate 0.5-0.9 Potassium Phosphate 15 mmol/ (Sodium Chloride) 255 mls @ 63.75 mls/hr IV ASDIR PRN PRN Reason: Serum Phos < 0.5 Dextrose/Water (D5w) 1,000 mls @ 0 mls/hr IV .Q0M PRN; As Directed PRN Reason: Hypoglycemia Sodium Bicarbonate 100 meq/Sodium Chloride 38.5 meq/Sterile Water 1,015.4 mls @ 75 mls/hr IV .[id number] [facility] Last Admin: 06/22/17 02:13 Dose: 1,015.4 mls Insulin Detemir 15 units/ (Miscellaneous Medication) 0.15 mls @ 0 mls/hr SC BID [facility] Insulin Human Lispro (Humalog) 0 units SC .MILD SLIDING SCALE PRN PRN Reason: Mild Correctional Scale Last Admin: 06/22/17 12:12 Dose: 4 units Magnesium Oxide (Magnesium Oxide) 400 mg PO BIDPRN PRN PRN Reason: FOR SERUM MAG 1.4 - 2.0 Magnesium Oxide (Magnesium Oxide) 800 mg PO PRN PRN PRN Reason: FOR SERUM MAG < 1.4 Metformin HCl (Glucophage) 500 mg PO TID [facility] Miscellaneous Medication (Phos-Nak) 1 pkt PO TIDPRN PRN PRN Reason: FOR PHOS LEVEL 1.0 - 1.8 Miscellaneous Medication (Phos-Nak) 2 pkt PO TIDPRN PRN PRN Reason: FOR PHOS LEVEL 0.5 - 1.0 Ccu Electrolyte (Replacement Protocol) 0 each FS PRN PRN PRN Reason: FOR ELECTROLYTE REPLACEMENT Ondansetron HCl (Zofran Odt) 4 mg PO Q6H PRN PRN Reason: Nausea/Vomiting Ondansetron HCl (Zofran) 4 mg IVP Q6H PRN PRN Reason: Nausea/Vomiting Potassium Chloride (K-Dur) 40 meq PO ASDIR PRN PRN Reason: FOR SERUM K+ 2.5 - 3.5 Last Admin: 06/22/17 05:47 Dose: 40 meq Potassium Chloride (Klor-Con) 40 meq PER TUBE ASDIR PRN PRN Reason: FOR SERUM K+ 2.5-3.5
--- NOTE | 2017-06-22 17:55 | PDOC.CTH ---
Cardiology Progress Note - Subjective No new issues. No chest pain, tightness, pressure. He continues to have diarrhea. - Objective Vital Signs Temp Pulse Resp BP Pulse Ox 06/22/17 15:33 97.9 F 83 25 H 130/76 97 06/22/17 13:00 98.5 F 83 20 100 06/22/17 12:50 98.0 F 89 22 H 135/77 97 06/22/17 11:00 98.5 F 06/22/17 10:42 87 06/22/17 07:04 98.7 F 91 26 H 93 L 06/22/17 07:00 98.7 F 06/22/17 06:41 91 Admit Weight 235 lb 14.4 oz Weight 246 lb 4.101 oz 06/21/17 06/22/17 06/23/17 06:59 06:59 06:59 Intake Total 4612 3101 600 Output Total 675 1783 500 Balance 3937 1318 100 - Physical Examination General/Neuro: alert & oriented x3, NAD Neck: no JVD present Lungs: other: (Reduced breath sounds. ) Heart: RRR Abdomen: NT/ND Extremities: + edema B (none) - Telemetry Telemetry Rhythm: NSR - Labs Result Diagrams: 06/21/17 05:16 06/22/17 03:22 Troponin/CKMB CK-MB (CK-2) 6.2 ng/mL (0-6.6) 06/20/17 08:59 Troponin I 1.366 ng/mL (< 0.028) H* 06/20/17 18:07 - Assessment/Plan 1. NSTEMI, likely demand ischemia 2. UTI 3. Osteomyelitis of the halux 4. PVD most likely 5. Poorly controlled diabetes 6. Metabolic acidosis 7. Diarrhea PLAN: - Continue supportive care. - Conservative therapy for NSTEMI. - Continue IV fluids.
[2017-06-22] MEDS: Insulin Detemir 100 UNITS/ML 15 UNITS in Pre-Filled Syringe 1 EACH SC SCH (21:29)
[2017-06-23] MEDS: Piperacillin/Tazobactam 3.375 GM in Sodium Chloride 0.9% 100 ML IVPB SCH ×4 (00:19→17:20)
[2017-06-23 04:49] LABS: Anion Gap 9 mmol/L (10-20); BUN (Urea Nitrogen) 33 mg/dL (8.4-25.7); Calc. Creatinine Clearance 105 mL/min (70-130); Calcium 8.2 mg/dL (7.8-10.44); Carbon Dioxide 31 mmol/L (23-31); Chloride 104 mmol/L (98-107); Estimated GFR-MDRD 85; Glucose 137 mg/dL (83-110); Potassium 3.1 mmol/L (3.5-5.1); Sodium 141 mmol/L (136-145)
[2017-06-23 05:08] LABS: Band 13 % (5-11); Hemoglobin 12.5 g/dL (14.0-18.0); Lymphocytes 10 % (21-51); MDiff Complete? YES; Mean Corpuscular HGB CONC 32.5 g/dL (32.0-36.0); Mean Corpuscular Hemoglobin 33.7 pg (27.0-31.0); Monocytes 1 % (0-10); Neutrophil 76 % (42-75); Platelet Count 163 thou/uL (130-400); RBC Distribution Width 13.7 % (11.5-14.5); Red Blood Cell (RBC) Count 3.69 mill/uL (4.70-6.10); White Blood Cell (WBC) Count 15.7 thou/uL (4.8-10.8)
[2017-06-23] MEDS: Insulin Detemir 100 UNITS/ML 15 UNITS in Pre-Filled Syringe 1 EACH SC SCH ×2 (08:53→21:13)
[2017-06-23] MEDS: metFORMIN 500 MG TAB PO SCH ×3 (08:55→21:15)
[2017-06-23] MEDS: Potassium Chloride 20 MEQ TAB PO PRN (08:55)
[2017-06-23] MEDS: Enoxaparin Sodium 40 MG/0.4 ML SYRINGE SC SCH (08:55)
[2017-06-23] MEDS: STERILE WATER IV SCH (10:12)
[2017-06-23] MEDS: SODIUM BICARBONATE IV SCH (10:12)
[2017-06-23] MEDS: SODIUM CHLORIDE IV SCH (10:12)
--- NOTE | 2017-06-23 12:27 | PDOC.PN ---
- Subjective Encounter Start Date: 06/23/17 Encounter Start Time: 12:00 Subjective: c/o not being able to see from last night, says he has a bit of cataract in -: left and still could see through it. No new weakness anywhere -: no sob, chest pain - Objective Resuscitation Status: Resuscitation Status DNR:Do Not Resuscitate MAR Reviewed: Yes Vital Signs & Weight: Vital Signs (12 hours) Temp Pulse Resp BP Pulse Ox 06/23/17 11:26 98.3 F 88 20 147/67 H 96 06/23/17 08:00 97.1 F L 87 22 H 99 06/23/17 07:35 97.1 F L 87 22 H 151/86 H 99 06/23/17 04:00 97.1 F L 85 30 H 139/75 94 L 06/23/17 01:00 93 98 06/23/17 00:29 90 26 H 126/76 90 L Weight Admit Weight 235 lb 14.4 oz Weight 233 lb 14.4 oz Most Recent Monitor Data Heart Rate from ECG 84 NIBP 126/66 NIBP BP-Mean 95 Respiration from ECG 24 SpO2 100 I&O: 06/22/17 06/23/17 06/24/17 06:59 06:59 06:59 Intake Total 3101 3028 120 Output Total 1783 2000 Balance 1318 1028 120 Result Diagrams: 06/23/17 04:06 06/23/17 04:06 Additional Labs: Accuchecks 06/23/17 06/23/17 06/22/17 10:32 06:08 21:25 POC Glucose 191 H 137 H 164 H 06/22/17 17:26 POC Glucose 218 H Phys Exam - Physical Examination HEENT: PERRLA, moist MMs eomi intact, immature cataract on left eye Neck: no JVD, supple Respiratory: no wheezing, no rales Cardiovascular: RRR, no significant murmur Gastrointestinal: soft, non-tender, positive bowel sounds Musculoskeletal: no edema, pulses present Neurological: non-focal, moves all 4 limbs Psychiatric: A&O x 3 Dx/Plan (1) Sepsis Code(s): A41.9 - SEPSIS, UNSPECIFIED ORGANISM Status: Acute Qualifiers: Sepsis type: sepsis due to unspecified organism Qualified Code(s): A41.9 - Sepsis, unspecified organism (2) DM (diabetes mellitus), type 2, uncontrolled Code(s): E11.65 - TYPE 2 DIABETES MELLITUS WITH HYPERGLYCEMIA Status: Acute Qualifiers: Diabetes mellitus complication status: with unspecified complications Diabetes mellitus ad terminal makeup operator insulin use: without ad terminal makeup operator use Qualified Code( s): E11.8 - Type 2 diabetes mellitus with unspecified complications; E11.65 - Type 2 diabetes mellitus with hyperglycemia; E11.65 - Type 2 diabetes mellitus with hyperglycemia; E11.65 - Type 2 diabetes mellitus with hyperglycemia; E11.65 - Type 2 diabetes mellitus with hyperglycemia Comment: uncontrolled (3) left first toe osteomyelitis Status: Chronic (4) NSTEMI (non-ST elevated myocardial infarction) Code(s): I21.4 - NON-ST ELEVATION (NSTEMI) MYOCARDIAL INFARCTION Status: Acute (5) HTN (hypertension) Code(s): I10 - ESSENTIAL (PRIMARY) HYPERTENSION Status: Chronic Qualifiers: Hypertension type: essential hypertension Qualified Code(s): I10 - Essential (primary) hypertension (6) BENY (acute kidney injury) Code(s): N17.9 - ACUTE KIDNEY FAILURE, UNSPECIFIED Status: Acute Comment: stable (7) Metabolic acidosis Code(s): E87.2 - ACIDOSIS Status: Resolved - Plan mri brain to r/o cva, blindness unlikely to be related to cva -: consult for opinion about his eye ?blindness -: fingerstick glucose is stabilizing, now on levemir 15bid, metformin tid -: empiric zosyn -: wbc is around 15, is off bipap and on nasal canula during day * . Review of Systems - Medications/Allergies Allergies/Adverse Reactions: Allergies Allergy/AdvReac Type Severity Reaction Status Date / Time No Known Allergies Allergy Verified 06/20/17 23:17 Medications: Current Medications Acetaminophen (Tylenol) 650 mg PO Q4H PRN PRN Reason: Headache/Fever or Pain Last Admin: 06/22/17 16:01 Dose: 650 mg Acetaminophen (Tylenol) 650 mg DE Q4H PRN PRN Reason: Fever/Mild Pain Last Admin: 06/20/17 19:47 Dose: 650 mg Dextrose/Water (Dextrose 50%) 25 gm SLOW IVP PRN PRN PRN Reason: Hypoglycemia Enoxaparin Sodium (Lovenox) 40 mg SC 0900 [facility] Last Admin: 06/23/17 08:55 Dose: 40 mg Glucagon (Glucagon) 1 mg IM PRN PRN PRN Reason: Hypoglycemia Piperacillin Sod/Tazobactam (Sod 3.375 gm/ Sodium Chloride) 100 mls @ 200 mls/ hr IVPB Q6HR [facility] Last Admin: 06/23/17 06:01 Dose: 100 mls Potassium Chloride 40 meq/ (Sodium Chloride) 270 mls @ 135 mls/hr IVPB ASDIR PRN PRN Reason: FOR SERUM K+ 2.5 - 3.5 Potassium Chloride 40 meq/ (Device) 100 mls @ 50 mls/hr IVPB ASDIR PRN PRN Reason: FOR SERUM K+ 2.5 - 3.5 Magnesium Sulfate 1 gm/ Sodium (Chloride) 102 mls @ 102 mls/hr IV PRN PRN PRN Reason: MAG LEVEL 1.4 - 2.0 Magnesium Sulfate 2 gm/ Device 100 mls @ 100 mls/hr IVPB ASDIR PRN PRN Reason: MAGNESIUM < 1.4 Potassium Phosphate 9 mmol/ (Sodium Chloride) 103 mls @ 25.75 mls/hr IVPB ASDIR PRN PRN Reason: Phosphate 1.0-1.8 Potassium Phosphate 12 mmol/ (Sodium Chloride) 254 mls @ 63.5 mls/hr IV ASDIR PRN PRN Reason: Serum phosphate 0.5-0.9 Potassium Phosphate 15 mmol/ (Sodium Chloride) 255 mls @ 63.75 mls/hr IV ASDIR PRN PRN Reason: Serum Phos < 0.5 Dextrose/Water (D5w) 1,000 mls @ 0 mls/hr IV .Q0M PRN; As Directed PRN Reason: Hypoglycemia Sodium Bicarbonate 100 meq/Sodium Chloride 38.5 meq/Sterile Water 1,015.4 mls @ 75 mls/hr IV .[id number] [facility] Last Admin: 06/23/17 10:12 Dose: Not Given Insulin Detemir 15 units/ (Miscellaneous Medication) 0.15 mls @ 0 mls/hr SC BID [facility] Last Admin: 06/23/17 08:53 Dose: 0.15 mls Insulin Human Lispro (Humalog) 0 units SC .MILD SLIDING SCALE PRN PRN Reason: Mild Correctional Scale Last Admin: 06/22/17 17:39 Dose: 3 units Magnesium Oxide (Magnesium Oxide) 400 mg PO BIDPRN PRN PRN Reason: FOR SERUM MAG 1.4 - 2.0 Magnesium Oxide (Magnesium Oxide) 800 mg PO PRN PRN PRN Reason: FOR SERUM MAG < 1.4 Metformin HCl (Glucophage) 500 mg PO TID [facility] Last Admin: 06/23/17 08:55 Dose: 500 mg Miscellaneous Medication (Phos-Nak) 1 pkt PO TIDPRN PRN PRN Reason: FOR PHOS LEVEL 1.0 - 1.8 Miscellaneous Medication (Phos-Nak) 2 pkt PO TIDPRN PRN PRN Reason: FOR PHOS LEVEL 0.5 - 1.0 Ccu Electrolyte (Replacement Protocol) 0 each FS PRN PRN PRN Reason: FOR ELECTROLYTE REPLACEMENT Ondansetron HCl (Zofran Odt) 4 mg PO Q6H PRN PRN Reason: Nausea/Vomiting Ondansetron HCl (Zofran) 4 mg IVP Q6H PRN PRN Reason: Nausea/Vomiting Potassium Chloride (K-Dur) 40 meq PO ASDIR PRN PRN Reason: FOR SERUM K+ 2.5 - 3.5 Last Admin: 06/23/17 08:55 Dose: 40 meq Potassium Chloride (Klor-Con) 40 meq PER TUBE ASDIR PRN PRN Reason: FOR SERUM K+ 2.5-3.5
--- NOTE | 2017-06-23 13:20 | PRG ---
DATE OF SERVICE: 06/23/2017 SUBJECTIVE: Doroteo Cordero has no new complaints. He did wear his BiPAP last night. OBJECTIVE: VITAL SIGNS: He is afebrile, heart rate 80, respiratory rate is 20, oximetry is 96, and blood pressu re 151/86. LUNGS: Clear. HEART: Regular rhythm. IMPRESSION: 1. Intravascular volume depletion. 2. Peripheral vascular disease. 3. Diabetes, not treated prior to admission. 4. Starvation ketosis, resolved. 5. DO NOT RESUSCITATE STATUS. 6. Obesity. 7. Sleep apnea, witnessed by me while he has been in the hospital. White count is 15.7, hemoglobin 12.5, platelets 163, bicarbonate is up to 31. MICROBIOLOGY: His urine culture that was positive for MRSA and a low colony count, repeat urine cul ture 06/22/2017 is showing no growth. Overall, he is stable at this time.
--- NOTE | 2017-06-23 14:03 | MRI ---
MRI BRAIN WITHOUT CONTRAST: HISTORY: Sudden blindness. Possible CVA. TECHNIQUE: Multiplanar, multisequential imaging of the brain obtained. FINDINGS: Mild cortical volume loss. Ventricles have normal size and position. Mild chronic ischemic white ma tter change. No evidence of restricted diffusion. No evidence of acute infarct. No evidence of mas s or edema. The intracranial and internal carotid arteries and the proximal cerebral arteries show normal flow vo ids. The basilar artery appears patent. There is evidence of a scleral band around the right globe, producing slight compression of the right globe. The globes otherwise appear unremarkable. IMPRESSION: Mild cortical atrophy and mild chronic ischemic white matter change. No acute process identified. POS: [facility]
[2017-06-23] MEDS: Loperamide HCl 2 MG CAP PO PRN (14:58)
--- NOTE | 2017-06-23 16:42 | PDOC.CTH ---
Cardiology Progress Note - Subjective No new issues. Breathing unchanged. - Objective Vital Signs Temp Pulse Pulse Resp BP BP Pulse Ox 06/23/17 14:52 97.5 F L 80 20 132/63 95 06/23/17 11:26 98.3 F 88 20 147/67 H 96 06/23/17 08:00 97.1 F L 87 84 22 H 151/86 H 99 06/23/17 07:35 97.1 F L 87 22 H 151/86 H 99 Pulse Ox 06/23/17 14:52 06/23/17 11:26 06/23/17 08:00 94 L 06/23/17 07:35 Admit Weight 235 lb 14.4 oz Weight 233 lb 14.4 oz 06/22/17 06/23/17 06/24/17 06:59 06:59 06:59 Intake Total 3101 3028 818 Output Total 1783 2000 Balance 1318 1028 818 - Physical Examination General/Neuro: alert & oriented x3 Neck: no JVD present Lungs: unlabored respirations Heart: RRR Abdomen: NT/ND Extremities: + edema B (no edema) - Telemetry Telemetry Rhythm: NSR - Labs Result Diagrams: 06/23/17 04:06 06/23/17 04:06 Troponin/CKMB CK-MB (CK-2) 6.2 ng/mL (0-6.6) 06/20/17 08:59 Troponin I 1.366 ng/mL (< 0.028) H* 06/20/17 18:07 - Assessment/Plan 1. NSTEMI, likely demand ischemia 2. UTI 3. Osteomyelitis of the halux 4. PVD most likely 5. Poorly controlled diabetes 6. Metabolic acidosis 7. Diarrhea PLAN: - Continue supportive care. - Conservative therapy for NSTEMI. - Replace K - Will sign off for now. Please call with any questions.
[2017-06-24] MEDS: Piperacillin/Tazobactam 3.375 GM in Sodium Chloride 0.9% 100 ML IVPB SCH ×4 (00:29→17:44)
[2017-06-24 05:05] LABS: Anion Gap 15 mmol/L (10-20); BUN (Urea Nitrogen) 28 mg/dL (8.4-25.7); Calc. Creatinine Clearance 94 mL/min (70-130); Carbon Dioxide 26 mmol/L (23-31); Chloride 104 mmol/L (98-107); Estimated GFR-MDRD 80; Glucose 137 mg/dL (83-110); Potassium 3.5 mmol/L (3.5-5.1); Sodium 141 mmol/L (136-145)
[2017-06-24 05:22] LABS: Band 6 % (5-11); Hemoglobin 12.5 g/dL (14.0-18.0); Lymphocytes 10 % (21-51); MDiff Complete? YES; Mean Corpuscular HGB CONC 31.8 g/dL (32.0-36.0); Mean Corpuscular Hemoglobin 33.4 pg (27.0-31.0); Mean Platelet Volume 7.3 fL (7.4-10.4); Monocytes 6 % (0-10); Neutrophil 78 % (42-75); Platelet Count 163 thou/uL (130-400); RBC Distribution Width 13.9 % (11.5-14.5); Red Blood Cell (RBC) Count 3.75 mill/uL (4.70-6.10); White Blood Cell (WBC) Count 12.5 thou/uL (4.8-10.8)
[2017-06-24] MEDS: Insulin Detemir 100 UNITS/ML 15 UNITS in Pre-Filled Syringe 1 EACH SC SCH ×2 (09:41→20:34)
[2017-06-24] MEDS: Acetaminophen 325 MG TAB PO PRN (09:41)
[2017-06-24] MEDS: Aspirin 325 mg Enteric Coated Tablet PO SCH (09:41)
[2017-06-24] MEDS: Enoxaparin Sodium 40 MG/0.4 ML SYRINGE SC SCH (09:41)
[2017-06-24] MEDS: Loperamide HCl 2 MG CAP PO PRN ×2 (09:41→20:32)
[2017-06-24] MEDS: metFORMIN 500 MG TAB PO SCH ×3 (09:41→20:35)
--- NOTE | 2017-06-24 13:50 | PDOC.PN ---
- Subjective Encounter Start Date: 06/24/17 Encounter Start Time: 11:20 Subjective: still cant see in both eyes -: is moving all extremities -: no sob or chest pain or palp - Objective Resuscitation Status: Resuscitation Status DNR:Do Not Resuscitate MAR Reviewed: Yes Vital Signs & Weight: Vital Signs (12 hours) Temp Pulse Pulse Pulse Resp BP BP 06/24/17 11:35 98.3 F 79 18 06/24/17 10:12 95 95 160/74 H 162/79 H 06/24/17 08:00 97.6 F 89 18 06/24/17 04:00 98.3 F 94 18 BP Pulse Ox Pulse Ox Pulse Ox 06/24/17 11:35 138/75 97 06/24/17 10:12 92 L 92 L 06/24/17 08:00 143/78 H 97 06/24/17 04:00 145/60 H 97 Weight Admit Weight 235 lb 14.4 oz Weight 234 lb 9.6 oz Most Recent Monitor Data Heart Rate from ECG 84 NIBP 126/66 NIBP BP-Mean 95 Respiration from ECG 24 SpO2 100 I&O: 06/23/17 06/24/17 06/25/17 06:59 06:59 06:59 Intake Total 3028 2048 Output Total 1999 1025 Balance 1028 1023 Result Diagrams: 06/24/17 04:00 06/24/17 04:00 Additional Labs: Accuchecks 06/24/17 06/24/17 06/23/17 10:31 05:38 20:41 POC Glucose 157 H 134 H 142 H 06/23/17 16:16 POC Glucose 167 H Phys Exam - Physical Examination HEENT: moist MMs, sclera anicteric Neck: no nodes, no JVD Respiratory: no wheezing, no rales Cardiovascular: RRR, no significant murmur Gastrointestinal: soft, non-tender, positive bowel sounds Musculoskeletal: no edema, pulses present Neurological: non-focal, moves all 4 limbs Psychiatric: A&O x 3 Dx/Plan (1) Sepsis Code(s): A41.9 - SEPSIS, UNSPECIFIED ORGANISM Status: Acute Qualifiers: Sepsis type: sepsis due to unspecified organism Qualified Code(s): A41.9 - Sepsis, unspecified organism Comment: resolving (2) DM (diabetes mellitus), type 2, uncontrolled Code(s): E11.65 - TYPE 2 DIABETES MELLITUS WITH HYPERGLYCEMIA Status: Acute Qualifiers: Diabetes mellitus complication status: with unspecified complications Diabetes mellitus terminal makeup operator insulin use: without retirement use Qualified Code( s): E11.8 - Type 2 diabetes mellitus with unspecified complications; E11.65 - Type 2 diabetes mellitus with hyperglycemia; E11.65 - Type 2 diabetes mellitus with hyperglycemia; E11.65 - Type 2 diabetes mellitus with hyperglycemia; E11.65 - Type 2 diabetes mellitus with hyperglycemia Comment: uncontrolled (3) NSTEMI (non-ST elevated myocardial infarction) Code(s): I21.4 - NON-ST ELEVATION (NSTEMI) MYOCARDIAL INFARCTION Status: Acute (4) HTN (hypertension) Code(s): I10 - ESSENTIAL (PRIMARY) HYPERTENSION Status: Chronic Qualifiers: Hypertension type: essential hypertension Qualified Code(s): I10 - Essential (primary) hypertension (5) BENY (acute kidney injury) Code(s): N17.9 - ACUTE KIDNEY FAILURE, UNSPECIFIED Status: Resolved Comment : stable (6) Metabolic acidosis Code(s): E87.2 - ACIDOSIS Status: Resolved (7) Blindness Code(s): H54.7 - UNSPECIFIED VISUAL LOSS Status: Acute Comment: b/l from - Plan MRI shows no cva, likely diabetic retinopathy -: has evaluated patient in im[facility] -: empiric zoysn, wbc down to 12 from 18 -: dm is well controlled on metformin and current levemir dose -: oob to chair and mobilize more as tolerated, nightly bipap * . Review of Systems - Medications/Allergies Allergies/Adverse Reactions: Allergies Allergy/AdvReac Type Severity Reaction Status Date / Time No Known Allergies Allergy Verified 06/20/17 23:17 Medications: Current Medications Acetaminophen (Tylenol) 650 mg PO Q4H PRN PRN Reason: Headache/Fever or Pain Last Admin: 06/24/17 09:41 Dose: 650 mg Acetaminophen (Tylenol) 650 mg NM Q4H PRN PRN Reason: Fever/Mild Pain Last Admin: 06/20/17 19:47 Dose: 650 mg Aspirin (Ecotrin) 325 mg PO DAILY [facility] Last Admin: 06/24/17 09:41 Dose: 325 mg Dextrose/Water (Dextrose 50%) 25 gm SLOW IVP PRN PRN PRN Reason: Hypoglycemia Enoxaparin Sodium (Lovenox) 40 mg SC 0900 [facility] Last Admin: 06/24/17 09:41 Dose: 40 mg Glucagon (Glucagon) 1 mg IM PRN PRN PRN Reason: Hypoglycemia Piperacillin Sod/Tazobactam (Sod 3.375 gm/ Sodium Chloride) 100 mls @ 200 mls/ hr IVPB Q6HR [facility] Last Admin: 06/24/17 11:46 Dose: 100 mls Potassium Chloride 40 meq/ (Sodium Chloride) 270 mls @ 135 mls/hr IVPB ASDIR PRN PRN Reason: FOR SERUM K+ 2.5 - 3.5 Potassium Chloride 40 meq/ (Device) 100 mls @ 50 mls/hr IVPB ASDIR PRN PRN Reason: FOR SERUM K+ 2.5 - 3.5 Magnesium Sulfate 1 gm/ Sodium (Chloride) 102 mls @ 102 mls/hr IV PRN PRN PRN Reason: MAG LEVEL 1.4 - 2.0 Magnesium Sulfate 2 gm/ Device 100 mls @ 100 mls/hr IVPB ASDIR PRN PRN Reason: MAGNESIUM < 1.4 Potassium Phosphate 9 mmol/ (Sodium Chloride) 103 mls @ 25.75 mls/hr IVPB ASDIR PRN PRN Reason: Phosphate 1.0-1.8 Potassium Phosphate 12 mmol/ (Sodium Chloride) 254 mls @ 63.5 mls/hr IV ASDIR PRN PRN Reason: Serum phosphate 0.5-0.9 Potassium Phosphate 15 mmol/ (Sodium Chloride) 255 mls @ 63.75 mls/hr IV ASDIR PRN PRN Reason: Serum Phos < 0.5 Dextrose/Water (D5w) 1,000 mls @ 0 mls/hr IV .Q0M PRN; As Directed PRN Reason: Hypoglycemia Insulin Detemir 15 units/ (Miscellaneous Medication) 0.15 mls @ 0 mls/hr SC BID [facility] Last Admin: 06/24/17 09:41 Dose: Not Given Insulin Human Lispro (Humalog) 0 units SC .MILD SLIDING SCALE PRN PRN Reason: Mild Correctional Scale Last Admin: 06/22/17 17:39 Dose: 3 units Loperamide HCl (Imodium) 2 mg PO PRN PRN PRN Reason: Diarrhea/Loose Stools Last Admin: 06/24/17 09:41 Dose: 2 mg Magnesium Oxide (Magnesium Oxide) 400 mg PO BIDPRN PRN PRN Reason: FOR SERUM MAG 1.4 - 2.0 Magnesium Oxide (Magnesium Oxide) 800 mg PO PRN PRN PRN Reason: FOR SERUM MAG < 1.4 Metformin HCl (Glucophage) 500 mg PO TID [facility] Last Admin: 06/24/17 09:41 Dose: 500 mg Miscellaneous Medication (Phos-Nak) 1 pkt PO TIDPRN PRN PRN Reason: FOR PHOS LEVEL 1.0 - 1.8 Miscellaneous Medication (Phos-Nak) 2 pkt PO TIDPRN PRN PRN Reason: FOR PHOS LEVEL 0.5 - 1.0 Ccu Electrolyte (Replacement Protocol) 0 each FS PRN PRN PRN Reason: FOR ELECTROLYTE REPLACEMENT Ondansetron HCl (Zofran Odt) 4 mg PO Q6H PRN PRN Reason: Nausea/Vomiting Ondansetron HCl (Zofran) 4 mg IVP Q6H PRN PRN Reason: Nausea/Vomiting Potassium Chloride (K-Dur) 40 meq PO ASDIR PRN PRN Reason: FOR SERUM K+ 2.5 - 3.5 Last Admin: 06/23/17 08:55 Dose: 40 meq Potassium Chloride (Klor-Con) 40 meq PER TUBE [facility] PRN PRN Reason: FOR SERUM K+ 2.5-3.5
[2017-06-24] MEDS: HumaLOG 300 UNITS/3 ML VIAL SC PRN (17:44)
--- NOTE | 2017-06-24 23:11 | PRG ---
DATE OF SERVICE: 06/24/2017 Mr. Cordero is, I think it is very difficult to deal with from the nursing standpoint. He refused to gi ve consent for evaluation for fpc to the bander hand. I have explained to him that he will be discharged home to an environment where he can take care of h imself clearly if he refuses to give consent for fpc, we will not keep him here indefinitely . I have also explained to him that we are trying to help him, but if he is going to yell at nurses or caseworkers every time they walk in the room then this will not go forward very well. He was evaluated by Ophthalmology today for complaints of decreased vision. Dr. Dior thought he m ight have a retinal hemorrhage from reviewing his notes. PHYSICAL EXAMIANTION: On exam, LUNGS: His lungs are clear. VITAL SIGNS: He is afebrile, heart rate is 88, respiratory rate is 22, oximetry is 97, blood pressur e 160/74. He is not showing signs of withdrawing from alcohol other than being extremely irritable. HEART: Regular rhythm. ABDOMEN: Soft. ASSESSMENT: 1. Staphylococcus aureus urinary tract infection. 2. Intravascular volume depletion. 3. Alcoholism. 4. Peripheral vascular disease, status post amputation in the past. 5. History of medical noncompliance. 6. Diabetes with a history of laser treatments of retinal hemorrhages based on Dr. Dior's exam. 7. ? retinal hemorrhage. 8. Positive troponin. 9. Osteomyelitis of his remaining great toe, most likely. 10. Diarrhea, most likely brought on by the broad spectrum antimicrobial therapy. His antimicrobial therapy should be pared down to treat just the Staphylococcus. 11. Given his diabetes, his renal function have to be monitored, but based on culture so far he woul d benefit from being treated with vancomycin. I have ordered this for his urinary tract infection.
[2017-06-25] MEDS: Acetaminophen 325 MG TAB PO PRN (01:25)
[2017-06-25] MEDS: Vancomycin HCl 1 GM in Premix Bag 1 BAG IVPB SCH ×2 (01:25→13:40)
[2017-06-25 04:55] LABS: Anion Gap 19 mmol/L (10-20); BUN (Urea Nitrogen) 25 mg/dL (8.4-25.7); Calc. Creatinine Clearance 87 mL/min (70-130); Calcium 8.1 mg/dL (7.8-10.44); Carbon Dioxide 26 mmol/L (23-31); Chloride 101 mmol/L (98-107); Estimated GFR-MDRD 73; Glucose 214 mg/dL (83-110); Potassium 3.6 mmol/L (3.5-5.1); Sodium 142 mmol/L (136-145)
[2017-06-25 05:39] LABS: Band 24 % (5-11); Lymphocytes 6 % (21-51); MDiff Complete? YES; Mean Corpuscular Hemoglobin 32.8 pg (27.0-31.0); Monocytes 6 % (0-10); Neutrophil 64 % (42-75); Platelet Count 180 thou/uL (130-400); Red Blood Cell (RBC) Count 3.94 mill/uL (4.70-6.10); White Blood Cell (WBC) Count 10.7 thou/uL (4.8-10.8)
[2017-06-25] MEDS: HumaLOG 300 UNITS/3 ML VIAL SC PRN (05:58)
[2017-06-25] MEDS ORDERED: Vancomycin HCl 1 GM in Premix Bag 1 BAG IVPB SCH (09:00)
[2017-06-25] MEDS: metFORMIN 500 MG TAB PO SCH ×2 (09:34→16:24)
[2017-06-25] MEDS: Insulin Detemir 100 UNITS/ML 15 UNITS in Pre-Filled Syringe 1 EACH SC SCH ×2 (09:34→20:29)
[2017-06-25] MEDS: Enoxaparin Sodium 40 MG/0.4 ML SYRINGE SC SCH (09:35)
[2017-06-25] MEDS: Aspirin 325 mg Enteric Coated Tablet PO SCH (09:35)
--- NOTE | 2017-06-25 11:25 | PRG ---
DATE OF SERVICE: 06/25/2017 Doroteo Cordero is doing well today. He is in IMCU. Today I evaluated his left foot with Wound Care. He has a plantar callus beneath his great toe. At the bedside using alcohol prep this was debrided marely ply revealing undermining and a very superficial ulcer probably 1/2-3/4 cm in diameter, it is healthy without tracking, without infection. Wound Care will redress it. Wound Care should consist of wash ing with soap and water every day and placing either a silver dressing or saline wet to dry dressing or just antibiotic ointment and a Band-Aid. I have stressed tobacco cessation to him. PHYSICAL EXAMINATION: Reveals palpable femoral, popliteal pulses, left, but no pedal pulses. The pablo neil has vascular disease, typical of diabetes with probably below the knee tibioperoneal artery dis ease. Since there is no active infection I do not think vascular evaluation is warranted at this ray e. If his foot deteriorates that could be undertaken at a later time. Renal function is normal. At this point, I will see him as needed and he should call the office and follow up with Kacie Denson or me in 2-3 weeks. He does need nail care, but there is not equipment to do that at the bedside. Aga in, there are no changes of infection clinically overlying the metatarsophalangeal joint. I will see him as needed this hospitalization. Please call if further service is necessary.
--- NOTE | 2017-06-25 12:02 | PDOC.PN ---
- Subjective Encounter Start Date: 06/25/17 Encounter Start Time: 07:50 Subjective: no sob, is awake, cant see still - Objective Resuscitation Status: Resuscitation Status DNR:Do Not Resuscitate MAR Reviewed: Yes Vital Signs & Weight: Vital Signs (12 hours) Temp Pulse Resp BP Pulse Ox 06/25/17 07:23 97.6 F 89 18 159/86 H 94 L 06/25/17 04:00 87 18 141/63 H 98 Weight Admit Weight 235 lb 14.4 oz Weight 234 lb 8 oz Most Recent Monitor Data Heart Rate from ECG 84 NIBP 126/66 NIBP BP-Mean 95 Respiration from ECG 24 SpO2 100 I&O: 06/24/17 06/25/17 06/26/17 06:59 06:59 06:59 Intake Total 2048 1200 Output Total 1025 475 Balance 1023 725 Result Diagrams: 06/25/17 04:26 06/25/17 04:26 Additional Labs: Accuchecks 06/25/17 06/25/17 06/24/17 11:53 05:58 20:33 POC Glucose 191 H 203 H 164 H 06/24/17 17:04 POC Glucose 216 H Phys Exam - Physical Examination HEENT: PERRLA, moist MMs Neck: no JVD, supple Respiratory: no wheezing, no rales Cardiovascular: RRR, no significant murmur Gastrointestinal: soft, non-tender, positive bowel sounds Musculoskeletal: no edema, pulses present Neurological: non-focal, moves all 4 limbs Psychiatric: A&O x 3 Dx/Plan (1) Sepsis Code(s): A41.9 - SEPSIS, UNSPECIFIED ORGANISM Status: Acute Qualifiers: Sepsis type: sepsis due to unspecified organism Qualified Code(s): A41.9 - Sepsis, unspecified organism Comment: resolving (2) DM (diabetes mellitus), type 2, uncontrolled Code(s): E11.65 - TYPE 2 DIABETES MELLITUS WITH HYPERGLYCEMIA Status: Chronic Qualifiers: Diabetes mellitus complication status: with unspecified complications Diabetes mellitus usp insulin use: without termite inspector use Qualified Code( s): E11.8 - Type 2 diabetes mellitus with unspecified complications; E11.65 - Type 2 diabetes mellitus with hyperglycemia; E11.65 - Type 2 diabetes mellitus with hyperglycemia; E11.65 - Type 2 diabetes mellitus with hyperglycemia; E11.65 - Type 2 diabetes mellitus with hyperglycemia (3) NSTEMI (non-ST elevated myocardial infarction) Code(s): I21.4 - NON-ST ELEVATION (NSTEMI) MYOCARDIAL INFARCTION Status: Resolved (4) HTN (hypertension) Code(s): I10 - ESSENTIAL (PRIMARY) HYPERTENSION Status: Chronic Qualifiers: Hypertension type: essential hypertension Qualified Code(s): I10 - Essential (primary) hypertension (5) BENY (acute kidney injury) Code(s): N17.9 - ACUTE KIDNEY FAILURE, UNSPECIFIED Status: Resolved Comment : stable (6) Metabolic acidosis Code(s): E87.2 - ACIDOSIS Status: Resolved (7) 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 Review of Systems - Medications/Allergies Allergies/Adverse Reactions: Allergies Allergy/AdvReac Type Severity Reaction Status Date / Time No Known Allergies Allergy Verified 06/20/17 23:17 Medications: Current Medications Acetaminophen (Tylenol) 650 mg PO Q4H PRN PRN Reason: Headache/Fever or Pain Last Admin: 06/25/17 01:25 Dose: 650 mg Acetaminophen (Tylenol) 650 mg [place] Q4H PRN PRN Reason: Fever/Mild Pain Last Admin: 06/20/17 19:47 Dose: 650 mg Aspirin (Ecotrin) 325 mg PO DAILY [facility] Last Admin: 06/25/17 09:35 Dose: 325 mg Dextrose/Water (Dextrose 50%) 25 gm SLOW IVP PRN PRN PRN Reason: Hypoglycemia Enoxaparin Sodium (Lovenox) 40 mg SC 0900 [facility] Last Admin: 06/25/17 09:35 Dose: 40 mg Glucagon (Glucagon) 1 mg IM PRN PRN PRN Reason: Hypoglycemia Potassium Chloride 40 meq/ (Sodium Chloride) 270 mls @ 135 mls/hr IVPB ASDIR PRN PRN Reason: FOR SERUM K+ 2.5 - 3.5 Potassium Chloride 40 meq/ (Device) 100 mls @ 50 mls/hr IVPB ASDIR PRN PRN Reason: FOR SERUM K+ 2.5 - 3.5 Magnesium Sulfate 1 gm/ Sodium (Chloride) 102 mls @ 102 mls/hr IV PRN PRN PRN Reason: MAG LEVEL 1.4 - 2.0 Magnesium Sulfate 2 gm/ Device 100 mls @ 100 mls/hr IVPB ASDIR PRN PRN Reason: MAGNESIUM < 1.4 Potassium Phosphate 9 mmol/ (Sodium Chloride) 103 mls @ 25.75 mls/hr IVPB ASDIR PRN PRN Reason: Phosphate 1.0-1.8 Potassium Phosphate 12 mmol/ (Sodium Chloride) 254 mls @ 63.5 mls/hr IV ASDIR PRN PRN Reason: Serum phosphate 0.5-0.9 Potassium Phosphate 15 mmol/ (Sodium Chloride) 255 mls @ 63.75 mls/hr IV ASDIR PRN PRN Reason: Serum Phos < 0.5 Dextrose/Water (D5w) 1,000 mls @ 0 mls/hr IV .Q0M PRN; As Directed PRN Reason: Hypoglycemia Insulin Detemir 15 units/ (Miscellaneous Medication) 0.15 mls @ 0 mls/hr SC BID [facility] Last Admin: 06/25/17 09:34 Dose: 0.15 mls Vancomycin HCl 1 gm/ Device 200 mls @ 200 mls/hr IVPB 0100,1300 [facility] Last Admin: 06/25/17 01:25 Dose: 200 mls Insulin Human Lispro (Humalog) 0 units SC .MILD SLIDING SCALE PRN PRN Reason: Mild Correctional Scale Last Admin: 06/25/17 05:58 Dose: 3 units Loperamide HCl (Imodium) 2 mg PO PRN PRN PRN Reason: Diarrhea/Loose Stools Last Admin: 06/24/17 20:32 Dose: 2 mg Magnesium Oxide (Magnesium Oxide) 400 mg PO BIDPRN PRN PRN Reason: FOR SERUM MAG 1.4 - 2.0 Magnesium Oxide (Magnesium Oxide) 800 mg PO PRN PRN PRN Reason: FOR SERUM MAG < 1.4 Metformin HCl (Glucophage) 500 mg PO TID [facility] Last Admin: 06/25/17 09:34 Dose: 500 mg Miscellaneous Medication (Phos-Nak) 1 pkt PO TIDPRN PRN PRN Reason: FOR PHOS LEVEL 1.0 - 1.8 Miscellaneous Medication (Phos-Nak) 2 pkt PO TIDPRN PRN PRN Reason: FOR PHOS LEVEL 0.5 - 1.0 Ccu Electrolyte (Replacement Protocol) 0 each FS PRN PRN PRN Reason: FOR ELECTROLYTE REPLACEMENT Ondansetron HCl (Zofran Odt) 4 mg PO Q6H PRN PRN Reason: Nausea/Vomiting Ondansetron HCl (Zofran) 4 mg IVP Q6H PRN PRN Reason: Nausea/Vomiting Potassium Chloride (K-Dur) 40 meq PO ASDIR PRN PRN Reason: FOR SERUM K+ 2.5 - 3.5 Last Admin: 06/23/17 08:55 Dose: 40 meq Potassium Chloride (Klor-Con) 40 meq PER TUBE ASDIR PRN PRN Reason: FOR SERUM K+ 2.5-3.5
--- NOTE | 2017-06-25 12:06 | OP ---
DATE OF PROCEDURE: 06/25/2017 PREOPERATIVE DIAGNOSES: Peripheral artery disease with tobacco abuse, ongoing, history of right belo w-the-knee amputation, history of left foot surgery near the metatarsophalangeal joint of great toe, diabetic callus, plantar distal left great toe. Note: The patient has exam consistent with tibioper jiang disease with palpable femoral, popliteal pulses, nonpalpable pedal pulses and a cool foot, but there are no active changes to warrant vascular evaluation at this time. I have reiterated tobacco c essation. POSTOPERATIVE DIAGNOSES: Peripheral artery disease with tobacco abuse, ongoing, history of right bel ow-the-knee amputation, history of left foot surgery near the metatarsophalangeal joint of great toe, diabetic callus, plantar distal left great toe. Note: The patient has exam consistent with tibiope roneal disease with palpable femoral, popliteal pulses, nonpalpable pedal pulses and a cool foot, but there are no active changes to warrant vascular evaluation at this time. I have reiterated tobacco cessation. PROCEDURE: Debridement of plantar left great toe diabetic callus excising sharply 10 blade skin with a small 1.5 cm to 0.75 cm ulceration superficial without tracking, expect this to heal with local wo und care. Sharp excisional debridement of skin callus. SURGEON: Dr. Boone Hays ANESTHESIA: None (diabetic neuropathy). PROCEDURE: At the patient's bedside, the left great toe was prepared with alcohol prep and diabetic callus excised sharply. Underneath this there was some undermining in the superficial ulceration of measurements noted above. Dressing applied. The patient tolerated the procedure well.
--- NOTE | 2017-06-25 13:49 | RAD ---
ONE VIEW CHEST: TWO VIEWS ABDOMEN: HISTORY: Abdominal distention. COMPARISON: None. FINDINGS: CHEST: Enlarged cardiac silhouette. Pulmonary vessels are slightly prominent. Patchy interstitial opacities. No consolidation or mass. No pleural effusion or pneumothorax. ABDOMEN: Marked distention of an air-filled stomach. There is still air throughout nondistended, no ndilated loops of small bowel and colon. No differential air-fluid levels. No pneumoperitoneum in t he left lateral decubitus position. IMPRESSION: 1. Cardiomegaly. Pulmonary vasculature prominence. Correlate for volume overload. 2. Marked gastric distention with air-filled stomach. Nasogastric tube placement is recommended. A dditionally, further interrogation with abdomen and pelvis CT is recommended. The results of the study were discussed with Minoo, the patient's nurse, on 06/25/2017, at 1:20 p.m. MARGRET HOLLEY POS: ANJELICA
[2017-06-25] MEDS ORDERED: Sodium Chloride 0.9% 1,000 ML IV SCH (16:45)
[2017-06-25] MEDS ORDERED: Pantoprazole 80 MG, Admixture Fee 1 EACH in Sodium Chloride 0.9% 100 ML IVP SCH (16:45)
[2017-06-25 16:49] LABS: Hemoglobin 12.8 g/dL (14.0-18.0); Platelet Count 214 thou/uL (130-400)
--- NOTE | 2017-06-25 18:05 | PRG ---
DATE OF SERVICE: 06/25/2017 SUBJECTIVE: Doroteo Cordero did well overnight. He is more cooperative with the nurses today. His abdomen was more distended. He had an NG tube placed and has a full cannister of brown aspirated gastric contents. His abdomen is less distended after this. I do not believe Gastroenterology has been consulted yet. OBJECTIVE: VITAL SIGNS: His temperature is 98.2, heart rate 87, respiratory rate 20, oximetry is 100% on 2 liters, blood pressure 141/78. LUNGS: Clear and distant. HEART: Regular rhythm. ABDOMEN: Distended and soft. IMPRESSION: 1. Ileus? versus bowel obstruction. 2. Diabetes. 3. ? retinal hemorrhage. 4. Chronic obstructive pulmonary disease. 5. Daily heavy alcohol use, but no vital signs suggestive of alcohol withdrawal. PLAN: Continue current supportive care measures. Review of notes, it appears that he had toe debridement today at the bedside with Dr. Hays before he developed his abdominal complaints. We continue with current care. RICHELLE
--- NOTE | 2017-06-25 23:46 | CON ---
DATE OF CONSULTATION: 06/25/2017 REASON FOR CONSULTATION: Possible GI bleeding and abdominal distention. CONSULTING PHYSICIAN: Elliott Knutson M.D. HISTORY OF PRESENT ILLNESS: The patient is an 81-year-old male with past medical history of poorly-c ontrolled diabetes, hypertension, and right artea-dzi-pyoa amputation secondary to nonhealing foot ul cer who initially presented with diabetic ketoacidosis. Also on admission, he was noted to have a no n-ST elevation [place], it is noted by increased troponins. Urinary tract infection and metabolic acidosi s most likely due to possible lactic acidosis. He was subsequently placed in the ICU and had been re sponding well to treatment until yesterday when he was noted to have significant abdominal distention and accompanying abdominal pain. Imaging obtained at that time showed significant gaseous distentio n of the stomach, which then prompted placement of an NG tube for decompression of the region. Short ly after placement of the NG tube, he had significant output into the bedside canister of approximate ly 300-450 mL of fluid in addition to blood-tinged fluid concerning for possible gastrointestinal ble eding. At this time, he continues to have continued increased output from the NG tube to the caniste r at bedside, but he is also drinking water and eating ice chips as noted during the interview I had with him. He currently denies any nausea, vomiting, fevers, chills or continued abdominal pain. Per nursing staff, they state that he has been having liquid stools that have been dark in coloration, b ut have not been black in coloration. REVIEW OF SYSTEMS: A 12-category review of systems was obtained with all responses negative except f or the pertinent positives as listed in the HPI. PAST MEDICAL HISTORY: Type 2 diabetes, hypertension, and a right cntvb-xzx-lsae amputation secondary to diabetic foot infection. PAST SURGICAL HISTORY: Appendectomy, right qvajt-lgi-itam amputation. SOCIAL HISTORY: He was drinking 5 glasses of whiskey daily, smokes approximately one half pack per d ay, but denies any illicit drug use. FAMILY HISTORY: No GI malignancies. OUTPATIENT MEDICATIONS: None. ALLERGIES: ASPIRIN. PHYSICAL EXAMINATION: VITAL SIGNS: Temperature of 98.2, pulse 87, blood pressure 141/78, respiratory rate 24, satting 100% on 2 liters nasal cannula. GENERAL: The patient is lying in bed, in no acute distress. He is alert and oriented x4. Speech at times garbled. NECK: Supple. No JVD noted. CARDIOVASCULAR: Regular rate and rhythm with no discernible murmurs, gallops or rubs. RESPIRATORY: Clear to auscultation bilaterally with no discernible wheezes or rales. ABDOMEN: High-pitched bowel sounds, soft, mild distention, and no tenderness to palpation. No rebou nd or guarding noted. EXTREMITIES: No cyanosis, clubbing or edema. Right lower extremity is with bkotg-psq-nihf amputatio n. LABORATORY STUDIES: CBC with a white blood cell count of 10.7, hemoglobin 13, hematocrit 41.7, plate lets 180. Chemistry with sodium of 142, potassium 3.6, chloride 101, CO2 of 26, BUN 25, creatinine 0 .98, glucose 214. IMAGING STUDIES: Acute abdominal series obtained on 06/25/2017 showing marked distention of an air-f illed stomach, also noted were nondistended nondilated loops of small bowel and colon. No differenti al air fluid levels seen. No pneumoperitoneum in the left lateral decubitus position. ASSESSMENT AND PLAN: The patient is an 81-year-old male with past medical history of poorly controll ed diabetes, hypertension, and right mbozy-mdy-ksqw amputation secondary to diabetic foot ulcer initi ally presenting with non-ST elevation myocardial infarction, possible diabetes ketoacidosis, acute ki dney injury, and diarrhea, now with possible upper gastrointestinal bleeding and/or gastric outlet ob struction. Gastrointestinal bleeding: Patient is presenting with a myriad of medical comorbidities that have si nce been stabilized while he has been inpatient; however, he was noted to have significant abdominal distention with the prompted evaluation with [facility] imaging. On the imaging, he was noted to have signi ficant gaseous distention of the stomach, which prompted placement of an NG tube with the return of a n increased amount of fluid around (around 300 mL within 1 hour after placement) along with blood-tin ged fluid concerning for gastrointestinal bleeding. At this time, the blood seen after placement of the NG tube could be attributed to NG tube trauma with the placement of the actual tube itself; howev er, with darker colored stools, increased abdominal distention and the blood noted after placement of the G-tube, GI bleeding or an upper GI process cannot be ruled out at this time. At this point, dif ferential could include peptic ulcer disease with inflammation/edema of the pylorus creating a gastri c outlet obstruction, malignancy, gastritis, or gastroparesis. Evaluation with upper endoscopy is in dicated at this time. RECOMMENDATIONS: 1. We will continue patient n.p.o. with NG tube placed to low intermittent wall suction. 2. We will plan for EGD tomorrow for evaluation of the gastric mucosa and evaluate for possible GI b leed and/or gastric outlet obstruction at that time. 3. We would continue to trend H&H and transfuse as necessary to maintain an H&H of 12/20. 4. We will continue the patient on pantoprazole given the possibility of an upper GI bleed. 5. We will continue to follow. Please call with any questions.
[2017-06-26] MEDS: Vancomycin HCl 1 GM in Premix Bag 1 BAG IVPB SCH ×2 (00:41→13:02)
[2017-06-26 00:45] LABS: Hemoglobin 12.6 g/dL (14.0-18.0); Platelet Count 235 thou/uL (130-400)
[2017-06-26] MEDS: Acetaminophen 650 MG Suppository PR PRN (03:33)
[2017-06-26 06:41] LABS: Anion Gap 13 mmol/L (10-20); BUN (Urea Nitrogen) 17 mg/dL (8.4-25.7); Calc. Creatinine Clearance 102 mL/min (70-130); Carbon Dioxide 29 mmol/L (23-31); Chloride 104 mmol/L (98-107); Estimated GFR-MDRD 86; Glucose 137 mg/dL (83-110); Sodium 143 mmol/L (136-145)
[2017-06-26 07:21] LABS: Hemoglobin 12.5 g/dL (14.0-18.0); Platelet Count 230 thou/uL (130-400)
[2017-06-26] MEDS: Insulin Detemir 100 UNITS/ML 15 UNITS in Pre-Filled Syringe 1 EACH SC SCH ×2 (07:53→22:27)
--- NOTE | 2017-06-26 12:24 | PDOC.PN ---
- Subjective Encounter Start Date: 06/26/17 Encounter Start Time: 07:30 Subjective: no abd pain -: cant see in both eyes -: has ng tube, passing flatus per patient - Objective Resuscitation Status: Resuscitation Status DNR:Do Not Resuscitate MAR Reviewed: Yes Vital Signs & Weight: Vital Signs (12 hours) Temp Pulse Resp BP Pulse Ox 06/26/17 07:28 98.1 F 86 22 H 99 06/26/17 07:27 98.1 F 86 22 H 174/75 H 99 06/26/17 04:35 97.2 F L 83 28 H 154/69 H 98 Weight Admit Weight 235 lb 14.4 oz Weight 237 lb Most Recent Monitor Data Heart Rate from ECG 84 NIBP 126/66 NIBP BP-Mean 95 Respiration from ECG 24 SpO2 100 I&O: 06/25/17 06/26/17 06/27/17 06:59 06:59 06:59 Intake Total 1200 2420 Output Total 475 3800 Balance 725 -1380 Result Diagrams: 06/26/17 05:43 06/26/17 05:43 Additional Labs: Accuchecks 06/26/17 06/26/17 06/25/17 11:26 05:43 20:29 POC Glucose 89 131 H 162 H 06/25/17 17:31 POC Glucose 210 H Phys Exam - Physical Examination HEENT: PERRLA, sclera anicteric Neck: no JVD, supple Respiratory: no wheezing, no rales rhonchi+ Cardiovascular: RRR, no significant murmur Gastrointestinal: soft, non-tender, no distention, positive bowel sounds Musculoskeletal: no edema, pulses present Neurological: non-focal, moves all 4 limbs Psychiatric: A&O x 3 Dx/Plan (1) Gastroparesis Code(s): K31.84 - GASTROPARESIS Status: Acute (2) DM (diabetes mellitus), type 2, uncontrolled Code(s): E11.65 - TYPE 2 DIABETES MELLITUS WITH HYPERGLYCEMIA Status: Chronic Qualifiers: Diabetes mellitus complication status: with unspecified complications Diabetes mellitus [facility] insulin use: without [facility] use Qualified Code( s): E11.8 - Type 2 diabetes mellitus with unspecified complications; E11.65 - Type 2 diabetes mellitus with hyperglycemia; E11.65 - Type 2 diabetes mellitus with hyperglycemia; E11.65 - Type 2 diabetes mellitus with hyperglycemia; E11.65 - Type 2 diabetes mellitus with hyperglycemia (3) NSTEMI (non-ST elevated myocardial infarction) Code(s): I21.4 - NON-ST ELEVATION (NSTEMI) MYOCARDIAL INFARCTION Status: Resolved (4) HTN (hypertension) Code(s): I10 - ESSENTIAL (PRIMARY) HYPERTENSION Status: Chronic Qualifiers: Hypertension type: essential hypertension Qualified Code(s): I10 - Essential (primary) hypertension (5) BENY (acute kidney injury) Code(s): N17.9 - ACUTE KIDNEY FAILURE, UNSPECIFIED Status: Resolved Comment : stable (6) Metabolic acidosis Code(s): E87.2 - ACIDOSIS Status: Resolved (7) Blindness Code(s): H54.7 - UNSPECIFIED VISUAL LOSS Status: Acute Comment: b/l from (8) Sepsis Code(s): A41.9 - SEPSIS, UNSPECIFIED ORGANISM Status: Resolved Qualifiers: Sepsis type: methicillin resistant Staphylococcus aureus Qualified Code(s) : A41.02 - Sepsis due to Methicillin resistant Staphylococcus aureus (9) Physical deconditioning Code(s): R53.81 - OTHER MALAISE Status: Acute - Plan for EGD today -: will get CT with oral contrast if EGD is normal -: may tx to med floor this pm if stable -: is on vanc, gentle iv hydration, is npo -: had a total of 2650ml out of ng suction. Hb is 12g * . Review of Systems - Medications/Allergies Allergies/Adverse Reactions: Allergies Allergy/AdvReac Type Severity Reaction Status Date / Time No Known Allergies Allergy Verified 06/20/17 23:17 Medications: Current Medications Acetaminophen (Tylenol) 650 mg PO Q4H PRN PRN Reason: Headache/Fever or Pain Last Admin: 06/25/17 01:25 Dose: 650 mg Acetaminophen (Tylenol) 650 mg [place] Q4H PRN PRN Reason: Fever/Mild Pain Last Admin: 06/26/17 03:33 Dose: 650 mg Dextrose/Water (Dextrose 50%) 25 gm SLOW IVP PRN PRN PRN Reason: Hypoglycemia Glucagon (Glucagon) 1 mg IM PRN PRN PRN Reason: Hypoglycemia Potassium Chloride 40 meq/ (Sodium Chloride) 270 mls @ 135 mls/hr IVPB ASDIR PRN PRN Reason: FOR SERUM K+ 2.5 - 3.5 Potassium Chloride 40 meq/ (Device) 100 mls @ 50 mls/hr IVPB ASDIR PRN PRN Reason: FOR SERUM K+ 2.5 - 3.5 Magnesium Sulfate 1 gm/ Sodium (Chloride) 102 mls @ 102 mls/hr IV PRN PRN PRN Reason: MAG LEVEL 1.4 - 2.0 Magnesium Sulfate 2 gm/ Device 100 mls @ 100 mls/hr IVPB ASDIR PRN PRN Reason: MAGNESIUM < 1.4 Potassium Phosphate 9 mmol/ (Sodium Chloride) 103 mls @ 25.75 mls/hr IVPB ASDIR PRN PRN Reason: Phosphate 1.0-1.8 Potassium Phosphate 12 mmol/ (Sodium Chloride) 254 mls @ 63.5 mls/hr IV ASDIR PRN PRN Reason: Serum phosphate 0.5-0.9 Potassium Phosphate 15 mmol/ (Sodium Chloride) 255 mls @ 63.75 mls/hr IV ASDIR PRN PRN Reason: Serum Phos < 0.5 Dextrose/Water (D5w) 1,000 mls @ 0 mls/hr IV .Q0M PRN; As Directed PRN Reason: Hypoglycemia Insulin Detemir 15 units/ (Miscellaneous Medication) 0.15 mls @ 0 mls/hr SC BID [facility] Last Admin: 06/26/17 07:53 Dose: Not Given Vancomycin HCl 1 gm/ Device 200 mls @ 200 mls/hr IVPB 0100,1300 [facility] Last Admin: 06/26/17 00:41 Dose: 200 mls Pantoprazole Sodium 80 mg/Miscellaneous Medication 1 each/ Sodium Chloride 100 mls @ 10 mls/hr IVP INF [facility] Last Admin: 06/25/17 17:44 Dose: 100 mls Sodium Chloride (Normal Saline 0.9%) 1,000 mls @ 50 mls/hr IV .Q20H [facility] Last Admin: 06/25/17 17:50 Dose: 1,000 mls Insulin Human Lispro (Humalog) 0 units SC .MILD SLIDING SCALE PRN PRN Reason: Mild Correctional Scale Last Admin: 06/25/17 05:58 Dose: 3 units Magnesium Oxide (Magnesium Oxide) 400 mg PO BIDPRN PRN PRN Reason: FOR SERUM MAG 1.4 - 2.0 Magnesium Oxide (Magnesium Oxide) 800 mg PO PRN PRN PRN Reason: FOR SERUM MAG < 1.4 Miscellaneous Medication (Phos-Nak) 1 pkt PO TIDPRN PRN PRN Reason: FOR PHOS LEVEL 1.0 - 1.8 Miscellaneous Medication (Phos-Nak) 2 pkt PO TIDPRN PRN PRN Reason: FOR PHOS LEVEL 0.5 - 1.0 Ccu Electrolyte (Replacement Protocol) 0 each FS PRN PRN PRN Reason: FOR ELECTROLYTE REPLACEMENT Ondansetron HCl (Zofran Odt) 4 mg PO Q6H PRN PRN Reason: Nausea/Vomiting Ondansetron HCl (Zofran) 4 mg IVP Q6H PRN PRN Reason: Nausea/Vomiting Potassium Chloride (K-Dur) 40 meq PO ASDIR PRN PRN Reason: FOR SERUM K+ 2.5 - 3.5 Last Admin: 06/23/17 08:55 Dose: 40 meq Potassium Chloride (Klor-Con) 40 meq PER TUBE ASDIR PRN PRN Reason: FOR SERUM K+ 2.5-3.5
[2017-06-26 12:48] LABS: Vancomycin, Trough 11.5 ug/mL
[2017-06-26] MEDS: Dextrose 5 %-0.45 % NaCl 1,000 ML IV SCH (13:01)
[2017-06-26] MEDS ORDERED: Midazolam HCl 2 mg/2 ml Vial ONE (14:47)
[2017-06-26] MEDS ORDERED: Fentanyl 100 MCG/2 ML VIAL ONE (14:47)
[2017-06-26] MEDS ORDERED: PROPOFOL 200 MG/20 ML VIAL ONE (16:08)
[2017-06-26] MEDS: Nystatin Powder 15 GM BOT TOP PRN (16:57)
--- NOTE | 2017-06-26 17:32 | PRG ---
DATE OF SERVICE: 06/26/2017 Doroteo Cordero is having problems with abdominal distention. He had an abdominal x-ray did yesterday, not ing impressive gastric distention without abnormalities of small bowel or colon. He had an NG tube p laced and had drainage of 2.6 liters decompressed and he feels better. The patient as recalled has d iabetes mellitus, hemoglobin A1c has not been obtained this hospitalization. He has had Accu-Cheks a s high as 342 and was 445 on admission. Today, he is not very cooperative, agitated, states he wants to eat. Gastroenterology has been consulted and EGD planned today. OBJECTIVE: ABDOMEN: Soft and nontender. NG tube in place. LUNGS: Clear to auscultation. ASSESSMENT AND PLAN: Gastric distention, most likely cause is gastroparesis related to uncontrolled diabetes. Would await GI consultation and rule out gastric outlet obstruction. We will follow with you awaiting an upper endoscopy.
--- NOTE | 2017-06-26 17:51 | OP ---
SURGEON: David Singletary M.D. POSTPARTUM NURSE SURGEON: None. PROCEDURE: Esophagogastroduodenoscopy with biopsies. INDICATION: 1. Nausea and vomiting. 2. Severe gastric distention concerning for possible gastric outlet obstruction. 3. Upper gastrointestinal bleeding following nasogastric tube placement. MEDICATIONS: See anesthesia record. FINDINGS: After discussion of the risks, benefits, and alternatives of the procedure, informed conse nt was obtained and witnessed. Pre-endoscopic cardiopulmonary examination was satisfactory. Timeout was performed before sedation was achieved. Sedation was achieved with anesthesia assistance in the endoscopy unit. The patient's nasogastric tube was removed. A Pentax adult upper endoscope was stefani jakob into the oropharynx and passed through the cricopharyngeus under direct visualization. The mucos a of the proximal esophagus was normal, but the mucosa throughout the midesophagus and distal esophag us shows severe erosive esophagitis, LA grade D. This was circumferential with multiple erosions and shallow ulcerations, which was quite friable, although with no significant bleeding. The endoscope was advanced through the GE junction and into the stomach. There was no evidence of any old blood or active bleeding in the stomach. There is some erosions along the lesser curvature of the stomach co nsistent with nasogastric tube trauma. There are some other areas of patchy erythema in the stomach as well. There was no retained food in the stomach or retained liquid in the stomach. Biopsies were obtained from the gastric antrum and body to rule out H. pylori infection. The endoscope was passed through the pylorus and into the first and second portions of the duodenum. At the apex of the duod enal bulb, there is significant edema and erythema with a few small erosions representing benign duod enitis. I did obtain biopsies from this edematous area of the duodenal bulb to rule out dysplastic o r malignant tissue, but this does appear benign. There was no difficulty with endoscope passage beyo nd the duodenal sweep and into the second portion of the duodenum, which appeared normal. The upper endoscope was then completely withdrawn and the patient allowed to recover. The patient tolerated e procedure well. There were no immediate post-procedure complications. IMPRESSION: 1. LA grade D distal erosive esophagitis in the distal and midesophagus. 2. Mild erosive gastritis with nasogastric tube trauma, biopsies taken to rule out Helicobacter pylo ri. 3. Duodenitis in the duodenal bulb, biopsied. 4. No evidence of mechanical obstruction or stricture. RECOMMENDATIONS: 1. Twice daily proton pump inhibitor. We would continue with twice daily dosing for 1 month, then g o back to once daily dosing and continue this indefinitely. 2. Clear liquid diet, then advance as tolerated. 3. We would recommend against replacing a nasogastric tube if possible. 4. Follow up biopsies in the gastric and duodenal biopsies. 5. We would elevate head of this bad at least 20-30 degrees to try to minimize reflux. Please call back if needed.
--- NOTE | 2017-06-26 18:59 | PRG ---
DATE OF SERVICE: 06/26/2017 Doroteo Cordero is out of his NG tube. OBJECTIVE: VITAL SIGNS: He is afebrile, heart rate 80, respiratory rate 19, oximetry is 98 on 2 liters, blood p ressure 160/94. LUNGS: Clear. HEART: Regular rhythm. ABDOMEN: Soft. He is to undergo endoscopy this evening. IMPRESSION: 1. Chronic obstructive pulmonary disease exacerbation, improved. 2. ? gastroparesis. He is undergoing endoscopy tonight and 2.6 liters sucked out of his NG tube ove rnight. 2. Diabetes, noncompliance. 3. History of peripheral vascular disease with lower extremity amputation. 4. Medical noncompliance always been in the hospital. PLAN: Continue supportive care, stable enough to move out of the Critical Care Unit in my opinion. He will not be compliant with his CPAP or BiPAP in my opinion, and will need a sleep study to prove t hat he needs this to get Medicare to pay for this, so we will go ahead and discontinue nocturnal BiPA P and says this was initially done for ventilatory support with his bronchospasm. We will continue t o watch him closely.
[2017-06-27] MEDS: Vancomycin HCl 1 GM in Premix Bag 1 BAG IVPB SCH ×2 (01:46→13:20)
[2017-06-27] MEDS: Acetaminophen 325 MG TAB PO PRN (05:30)
[2017-06-27 05:48] LABS: #Eosinphils 0.1 thou/uL (0.0-0.7); #Lymphocytes 0.7 thou/uL (1.20-3.40); #Monocytes 0.5 thou/uL (0.11-0.59); #Neutrophils 8.3 thou/uL (1.40-6.50); %Basophils 0.1 % (0.0-1.0); %Eosinophils 0.7 % (0.0-10.0); %Lymphocytes 7.6 % (21.0-51.0); %Monocytes 5.6 % (0.0-10.0); Hemoglobin 11.3 g/dL (14.0-18.0); Mean Corpuscular HGB CONC 31.8 g/dL (32.0-36.0); Mean Corpuscular Hemoglobin 33.5 pg (27.0-31.0); Mean Platelet Volume 7.3 fL (7.4-10.4); Platelet Count 244 thou/uL (130-400); RBC Distribution Width 13.7 % (11.5-14.5); Red Blood Cell (RBC) Count 3.37 mill/uL (4.70-6.10); White Blood Cell (WBC) Count 9.6 thou/uL (4.8-10.8)
[2017-06-27 05:52] LABS: Hemoglobin A1c 10.9 % (4.0-6.0)
[2017-06-27 06:10] LABS: Anion Gap 13 mmol/L (10-20); BUN (Urea Nitrogen) 16 mg/dL (8.4-25.7); Calc. Creatinine Clearance 70 mL/min (70-130); Calcium 7.7 mg/dL (7.8-10.44); Carbon Dioxide 28 mmol/L (23-31); Chloride 103 mmol/L (98-107); Estimated GFR-MDRD 57; Glucose 181 mg/dL (83-110); Potassium 3.4 mmol/L (3.5-5.1); Sodium 141 mmol/L (136-145)
[2017-06-27] MEDS: Insulin Detemir 100 UNITS/ML 15 UNITS in Pre-Filled Syringe 1 EACH SC SCH (07:09)
[2017-06-27] MEDS: Nystatin Powder 15 GM BOT TOP PRN ×2 (07:16→21:12)
[2017-06-27] MEDS: Dextrose 5 %-0.45 % NaCl 1,000 ML IV SCH ×3 (07:17→18:09)
--- NOTE | 2017-06-27 09:39 | PRG ---
DATE OF SERVICE: 06/27/2017 SUBJECTIVE: Mr. Cordero had an EGD yesterday, did not show any evidence of bowel obstruction and his mo st likely problem is gastroparesis. His NG tube has been removed and there were some erosive changes such that the NG tube was suggested by Gastroenterology to be avoided. Patient has not had any naus ea or vomiting. OBJECTIVE: His abdomen more distended and tympanitic. Upper abdomen consistent with gastric distent ion again. His most likely problem is gastroparesis related to his diabetes, which has been poorly c ontrolled. LABORATORY DATA: This morning, his hemoglobin is 11.3, white count 9.6, sodium 141, potassium 3.4, a nd hemoglobin A1c is 10.9. ASSESSMENT AND PLAN: Gastroparesis related to diabetes. At this point, this is more of a medical pr oblem and gastrokinetics should be considered such as Reglan and erythromycin. At this point, Dr. Tamela urrutia has covered the weekend from a surgery standpoint and if needed, please call her; otherwise I will see her as needed.
--- NOTE | 2017-06-27 09:47 | PRG ---
DATE OF SERVICE: 06/27/2017 REASON FOR CONSULTATION: Abdominal distention, hematemesis. SUBJECTIVE: Overnight the patient denies any problems or acute events. Doing well this morning with out any nausea, vomiting, fevers, chills, abdominal pain, odynophagia or dysphagia. OBJECTIVE: VITAL SIGNS: Temperature 97.5, pulse 83, blood pressure 169/75, respiratory rate 18, satting 98% on 2 liters nasal cannula. GENERAL: The patient is lying in bed in no acute distress, alert and oriented x4. CARDIOVASCULAR: Regular rate and rhythm with no discernible murmurs, gallops or rubs. RESPIRATORY: Clear to auscultation bilaterally with no discernible wheezes or rales. ABDOMEN: Normoactive bowel sounds. Moderate distention that is still soft to palpation and not tens e. No tenderness to palpation. EXTREMITIES: No cyanosis, clubbing or edema. Right [id number] amputation present. LABORATORY DATA: CBC with a white blood cell count of 9.6, hemoglobin 11.3, hematocrit 35.6, platele ts 244. Chemistry with a sodium of 141, potassium 3.4, chloride 103, CO2 28, BUN 16, creatinine 1.22 , glucose 181. IMAGING STUDIES: EGD obtained on 06/26/2017 showing no evidence of gastric outlet obstruction. Stacy kd, mild edema was seen in the duodenal bulb, but easily traversed with the standard gastroscope. T here was also seen significant severe erosive esophagitis in the mid and distal esophagus characteriz ed as LA grade D. ASSESSMENT AND PLAN: 1. The patient is an 81-year-old male with past medical history of poorly controlled diabetes, hyper tension, and a right [id number] amputation secondary to diabetic foot ulcer initially presenting with non-ST elevation myocardial infarction, possible diabetic ketoacidosis, acute kidney injury, luigi rrhea, and gastric distention and blood return after NG tube placement. 2. Gastrointestinal bleeding. The patient presented with a myriad of medical comorbidities that hav e been stabilized since he was admitted; however, he was noted to have significant abdominal distenti on on 06/25/2017 that prompted evaluation with a KUB. Abdominal imaging did show significant gaseous distention of the stomach, which then prompted the placement of an NG tube. With placement of the N G tube there was a significant amount of fluid returned along with blood-tinged fluid concerning for an upper GI bleed. He underwent upper endoscopy on 06/26/2017 with findings of severe mid and distal esophagus erosive esophagitis, most likely contributing to the blood tinged fluid obtained on NG tub e placement. No other etiologies for GI bleeding were seen during that examination. RECOMMENDATIONS: 1. Would continue patient on PPI 40 mg b.i.d. for severe erosive esophagitis for the next 4 weeks, t hen can decrease to 40 mg daily, indefinitely. 2. Would maintain standard acid reflux precautions (have patient sitting up in bed, both before and after meals for approximately 2 hours, avoid trigger foods, avoid undue pressure to the abdomen). Wo uld refrain from placement of a subsequent NG tube given the severe erosive esophagitis in the stomac h and the increased likelihood of NG tube trauma. 3. Gastric distention. The patient with imaging on 06/25/2017 showing significant gaseous distentio n of the stomach that was concerning for possible gastric outlet obstruction. EGD performed on 06/26 did not show any evidence of gastric outlet obstruction, although it did see some increased maxx ma within the duodenal bulb, but easily traversed with the standard gastroscope making this an unlike ly origin of his gastric distention. However, he did show up on admission with severely uncontrolled diabetes and the likelihood of diabetic gastroparesis is now higher on the differential. 3. We will order a gastric emptying study to confirm the diagnosis of diabetic gastroparesis. 4. Would keep patient on a liquid low fat diet for now given the increased possibility of gastropare sis. 5. Would refrain from use of prokinetics like Reglan for the time being until the diagnosis of gastr oparesis is negative. We will continue to follow. Please call with any questions.
--- NOTE | 2017-06-27 11:17 | PRG ---
DATE OF SERVICE: 06/27/2017 SUBJECTIVE: Mr. Doroteo Cordero has no new complaints. He is not short of breath. He did okay without CPAP last night. OBJECTIVE: VITAL SIGNS: He is afebrile. Heart rate is 83, respiratory rate is 18, oximetry is 90% on 2 liters and blood pressure 160/75. LUNGS: Clear. HEART: Regular rhythm. ABDOMEN: Soft. IMPRESSION: 1. Chronic obstructive pulmonary disease exacerbation with respiratory failure. 2. ?gastroparesis. 3. Probable osteomyelitis of his great toe. 4. Status post [id number] amputation on the right. 5. Noncompliance with medical care.6. 6. Alcoholism with heavy daily alcohol intake prior to this admission. PLAN: He is stable to move out of the Critical Care Unit. He remains a do not resuscitate patient, but per his request, there is no longer need for BiPAP. Probably, he does have sleep apnea, but was treated for respiratory distress with BiPAP when he came in and his work of breathing has returned to his baseline. In my opinion, there is no reason to continue with BiPAP. He had an acid base disorder on presentation that was related to severe dehydration. This is resolve d.
[2017-06-27] MEDS: Metoclopramide HCl 10 MG TAB PO SCH ×4 (13:00→23:01)
--- NOTE | 2017-06-27 14:57 | PDOC.PN ---
- Subjective Encounter Start Date: 06/27/17 Encounter Start Time: 10:50 Subjective: awake, still cant see, says his abd has mild distention this am -: is passing flatus, no abd pain or nausea - Objective Resuscitation Status: Resuscitation Status DNR:Do Not Resuscitate MAR Reviewed: Yes Vital Signs & Weight: Vital Signs (12 hours) Temp Pulse Resp BP Pulse Ox 06/27/17 12:37 98.6 F 87 20 99 06/27/17 12:13 87 20 127/79 98 06/27/17 12:00 98.6 F 86 20 129/79 99 06/27/17 07:22 97.5 F L 83 18 98 06/27/17 07:20 97.5 F L 83 18 169/75 H 98 Weight Admit Weight 235 lb 14.4 oz Weight 234 lb 3 oz Most Recent Monitor Data Heart Rate from ECG 84 NIBP 126/66 NIBP BP-Mean 95 Respiration from ECG 24 SpO2 100 I&O: 06/26/17 06/27/17 06/28/17 06:59 06:59 06:59 Intake Total 2420 2956 240 Output Total 3800 970 Balance -1380 1986 240 Result Diagrams: 06/27/17 05:30 06/27/17 05:30 Additional Labs: Accuchecks 06/27/17 06/27/17 06/26/17 10:55 05:17 20:52 POC Glucose 201 H 159 H 102 06/26/17 16:46 POC Glucose 83 Phys Exam - Physical Examination HEENT: moist MMs, sclera anicteric Neck: no JVD, supple Respiratory: no wheezing, no rales Cardiovascular: RRR, no significant murmur Gastrointestinal: soft, non-tender, positive bowel sounds mild upper quadrant distention+ Musculoskeletal: no edema, pulses present Neurological: non-focal, moves all 4 limbs Psychiatric: A&O x 3 Dx/Plan (1) Gastroparesis Code(s): K31.84 - GASTROPARESIS Status: Acute (2) DM (diabetes mellitus), type 2, uncontrolled Code(s): E11.65 - TYPE 2 DIABETES MELLITUS WITH HYPERGLYCEMIA Status: Chronic Qualifiers: Diabetes mellitus complication status: with unspecified complications Diabetes mellitus shelter insulin use: without shelter use Qualified Code( s): E11.8 - Type 2 diabetes mellitus with unspecified complications; E11.65 - Type 2 diabetes mellitus with hyperglycemia; E11.65 - Type 2 diabetes mellitus with hyperglycemia; E11.65 - Type 2 diabetes mellitus with hyperglycemia; E11.65 - Type 2 diabetes mellitus with hyperglycemia (3) NSTEMI (non-ST elevated myocardial infarction) Code(s): I21.4 - NON-ST ELEVATION (NSTEMI) MYOCARDIAL INFARCTION Status: Resolved (4) HTN (hypertension) Code(s): I10 - ESSENTIAL (PRIMARY) HYPERTENSION Status: Chronic Qualifiers: Hypertension type: essential hypertension Qualified Code(s): I10 - Essential (primary) hypertension (5) BENY (acute kidney injury) Code(s): N17.9 - ACUTE KIDNEY FAILURE, UNSPECIFIED Status: Resolved Comment : stable (6) Metabolic acidosis Code(s): E87.2 - ACIDOSIS Status: Resolved (7) Blindness Code(s): H54.7 - UNSPECIFIED VISUAL LOSS Status: Acute Comment: b/l from likely due to diabetic retinopathy (8) Sepsis Code(s): A41.9 - SEPSIS, UNSPECIFIED ORGANISM Status: Resolved Qualifiers: Sepsis type: methicillin resistant Staphylococcus aureus Qualified Code(s) : A41.02 - Sepsis due to Methicillin resistant Staphylococcus aureus (9) Physical deconditioning Code(s): R53.81 - OTHER MALAISE Status: Acute - Plan gastric empytying scan has been ordered by GI, will await results -: hold reglan until above -: september tx to med floor -: oob to chair and mobilize with his prosthesis -: egd showed gastritis/esophagitis with no obstr path, is on vanc for uti * . watch for urine output Review of Systems - Medications/Allergies Allergies/Adverse Reactions: Allergies Allergy/AdvReac Type Severity Reaction Status Date / Time No Known Allergies Allergy Verified 06/20/17 23:17 Medications: Current Medications Acetaminophen (Tylenol) 650 mg PO Q4H PRN PRN Reason: Headache/Fever or Pain Last Admin: 06/27/17 05:30 Dose: 650 mg Acetaminophen (Tylenol) 650 mg [place] Q4H PRN PRN Reason: Fever/Mild Pain Last Admin: 06/26/17 03:33 Dose: 650 mg Dextrose/Water (Dextrose 50%) 25 gm SLOW IVP PRN PRN PRN Reason: Hypoglycemia Glucagon (Glucagon) 1 mg IM PRN PRN PRN Reason: Hypoglycemia Dextrose/Water (D5w) 1,000 mls @ 0 mls/hr IV .Q0M PRN; As Directed PRN Reason: Hypoglycemia Vancomycin HCl 1 gm/ Device 200 mls @ 200 mls/hr IVPB 0100,1300 [facility] Last Admin: 06/27/17 13:20 Dose: 200 mls Dextrose/Sodium Chloride (D5 1/2 Ns) 1,000 mls @ 50 mls/hr IV .Q20H [facility] Last Admin: 06/27/17 13:20 Dose: 1,000 mls Insulin Human Lispro (Humalog) 0 units SC .MILD SLIDING SCALE PRN PRN Reason: Mild Correctional Scale Last Admin: 06/25/17 05:58 Dose: 3 units Metoclopramide HCl (Reglan) 10 mg PO ACHS [facility] Last Admin: 06/27/17 13:00 Dose: Not Given Nystatin (Mycostatin Powder) 0 gm TOP TIDPRN PRN PRN Reason: AFFECTED AREA Last Admin: 06/27/17 07:16 Dose: 1 applic Ondansetron HCl (Zofran) 4 mg IVP Q6H PRN PRN Reason: Nausea/Vomiting Pantoprazole Sodium (Protonix) 40 mg PO BID [facility] Last Admin: 06/27/17 07:13 Dose: 40 mg
[2017-06-28] MEDS: Vancomycin HCl 1 GM in Premix Bag 1 BAG IVPB SCH ×2 (01:25→12:01)
[2017-06-28] MEDS: hydrALAZINE 20 MG/ML VIAL SLOW IVP PRN (01:55)
[2017-06-28 04:51] LABS: #Lymphocytes 0.8 thou/uL (1.20-3.40); #Monocytes 0.6 thou/uL (0.11-0.59); %Basophils 0.3 % (0.0-1.0); %Eosinophils 0.5 % (0.0-10.0); %Lymphocytes 7.8 % (21.0-51.0); %Monocytes 5.6 % (0.0-10.0); %Neutrophils 85.9 % (42.0-75.0); Hemoglobin 11.3 g/dL (14.0-18.0); Mean Corpuscular HGB CONC 32.4 g/dL (32.0-36.0); Mean Platelet Volume 6.8 fL (7.4-10.4); Platelet Count 302 thou/uL (130-400); RBC Distribution Width 13.6 % (11.5-14.5); Red Blood Cell (RBC) Count 3.33 mill/uL (4.70-6.10); White Blood Cell (WBC) Count 10.4 thou/uL (4.8-10.8)
[2017-06-28 05:03] LABS: Anion Gap 11 mmol/L (10-20); BUN (Urea Nitrogen) 15 mg/dL (8.4-25.7); Calc. Creatinine Clearance 66 mL/min (70-130); Calcium 7.7 mg/dL (7.8-10.44); Carbon Dioxide 27 mmol/L (23-31); Chloride 104 mmol/L (98-107); Estimated GFR-MDRD 53; Glucose 185 mg/dL (83-110); Sodium 139 mmol/L (136-145)
[2017-06-28 05:10] LABS: Potassium 2.9 mmol/L (3.5-5.1)
[2017-06-28] MEDS: Dextrose 5 %-0.45 % NaCl 1,000 ML IV SCH ×3 (05:40→21:38)
[2017-06-28] MEDS: Potassium Chloride 20 MEQ TAB PO SCH ×5 (06:47→23:58)
[2017-06-28] MEDS: Metoclopramide HCl 10 MG TAB PO SCH ×4 (07:47→21:13)
--- NOTE | 2017-06-28 10:59 | PRG ---
DATE OF SERVICE: 06/28/2017 SUBJECTIVE: Mr. Cordero says he is feeling pretty good today. He is not having any abdominal pain. He denies any nausea. There has been no vomiting. He says he has had a couple of bowel movements alpa ier today. He has been tolerating a clear liquid diet. OBJECTIVE: VITAL SIGNS: Temperature 98.4, pulse 92, blood pressure 193/82, 98% oxygen saturation on 2 liters na miki cannula. GENERAL: No acute distress. HEART: Regular rate and rhythm. LUNGS: Clear to auscultation bilaterally. ABDOMEN: Distended, tympanitic to percussion. Nontender to palpation throughout. EXTREMITIES: No peripheral edema. LABORATORY STUDIES: WBC 10.4, hemoglobin 11.3, platelets 302. Sodium 139, potassium 2.9, BUN 15, cr eatinine 1.29, glucose 164. ASSESSMENT AND PLAN: 1. Nausea and vomiting, resolved. 2. Severe erosive esophagitis. 3. Gastritis. 4. Erosive duodenitis. Continue twice daily proton pump inhibitor as previously outlined. There is some suspicion for compo nent of gastroparesis here. Dr. Bolton had ordered gastric emptying study. This probably will be p erformed over the weekend, but that is okay. Could potentially get this done on an outpatient basis later. At this point, given his improvement in symptoms, I would recommend advancing the diet slowly and seeing how he does. I have ordered a full liquid diet, but this could be advanced further as to lerated. Please call back any time with questions or concerns.
--- NOTE | 2017-06-28 13:18 | PRG ---
DATE OF SERVICE: 06/28/2017 SUBJECTIVE: Mr. Cordero is about the same. He had no acute complaints. PHYSICAL EXAMINATION: VITAL SIGNS: Temperature 97.6, pulse 86, respirations 16, O2 sat 93%, blood pressure 156/76. HEENT: Unremarkable. NECK: No JVD. LUNGS: Clear. CARDIAC: S1 and S2 regular. ABDOMEN: Soft. EXTREMITIES: No edema. LABORATORY DATA: White blood cell count 10, hematocrit 35, platelet count 302. Sodium 139, potassiu m 2.9, chloride 104, CO2 of 27, BUN 15, creatinine 1.3, glucose 185. ASSESSMENT: 1. Chronic obstructive pulmonary disease with exacerbation. 2. Osteomyelitis. 3. 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 4. Alcoholism. PLAN: 1. Continue present care including the antibiotics, breathing treatments. 2. PT, OT.
[2017-06-28] MEDS ORDERED: Vancomycin HCl 1 GM in Premix Bag 1 BAG IVPB SCH ×2 (14:15→14:30)
--- NOTE | 2017-06-28 14:16 | PDOC.PN ---
- Subjective Encounter Start Date: 06/28/17 Encounter Start Time: 10:00 Subjective: no sob or abd pain - Objective Resuscitation Status: Resuscitation Status DNR:Do Not Resuscitate MAR Reviewed: Yes Vital Signs & Weight: Vital Signs (12 hours) Temp Pulse Resp BP BP Pulse Ox 06/28/17 11:47 97.6 F 66 16 156/76 H 93 L 06/28/17 08:00 98.4 F 92 16 193/82 H 98 06/28/17 07:01 97 06/28/17 04:00 98.2 F 91 20 173/79 H 92 L Weight Admit Weight 235 lb 14.4 oz Weight 245 lb 11.2 oz Most Recent Monitor Data Heart Rate from ECG 84 NIBP 126/66 NIBP BP-Mean 95 Respiration from ECG 24 SpO2 100 I&O: 06/27/17 06/28/17 06/29/17 06:59 06:59 06:59 Intake Total 2956 240 480 Output Total 970 1200 Balance 1986 -960 480 Result Diagrams: 06/28/17 03:58 06/28/17 03:58 Additional Labs: Accuchecks 06/28/17 06/28/17 06/27/17 11:12 04:16 20:47 POC Glucose 222 H 164 H 141 H 06/27/17 16:50 POC Glucose 137 H Phys Exam - Physical Examination HEENT: PERRLA, moist MMs Neck: no JVD, supple Respiratory: no wheezing, no rales Cardiovascular: RRR, no significant murmur Gastrointestinal: soft, non-tender, positive bowel sounds Musculoskeletal: pulses present Neurological: non-focal, moves all 4 limbs Psychiatric: A&O x 3 Dx/Plan (1) Gastroparesis Code(s): K31.84 - GASTROPARESIS Status: Acute (2) DM (diabetes mellitus), type 2, uncontrolled Code(s): E11.65 - TYPE 2 DIABETES MELLITUS WITH HYPERGLYCEMIA Status: Chronic Qualifiers: Diabetes mellitus complication status: with unspecified complications Diabetes mellitus half-way insulin use: without half-way use Qualified Code( s): E11.8 - Type 2 diabetes mellitus with unspecified complications; E11.65 - Type 2 diabetes mellitus with hyperglycemia; E11.65 - Type 2 diabetes mellitus with hyperglycemia; E11.65 - Type 2 diabetes mellitus with hyperglycemia; E11.65 - Type 2 diabetes mellitus with hyperglycemia (3) NSTEMI (non-ST elevated myocardial infarction) Code(s): I21.4 - NON-ST ELEVATION (NSTEMI) MYOCARDIAL INFARCTION Status: Resolved (4) HTN (hypertension) Code(s): I10 - ESSENTIAL (PRIMARY) HYPERTENSION Status: Chronic Qualifiers: Hypertension type: essential hypertension Qualified Code(s): I10 - Essential (primary) hypertension (5) BENY (acute kidney injury) Code(s): N17.9 - ACUTE KIDNEY FAILURE, UNSPECIFIED Status: Resolved Comment : stable (6) Metabolic acidosis Code(s): E87.2 - ACIDOSIS Status: Resolved (7) Blindness Code(s): H54.7 - UNSPECIFIED VISUAL LOSS Status: Acute Comment: b/l from likely due to diabetic retinopathy (8) Sepsis Code(s): A41.9 - SEPSIS, UNSPECIFIED ORGANISM Status: Resolved Qualifiers: Sepsis type: methicillin resistant Staphylococcus aureus Qualified Code(s) : A41.02 - Sepsis due to Methicillin resistant Staphylococcus aureus (9) Physical deconditioning Code(s): R53.81 - OTHER MALAISE Status: Acute - Plan on reglan, if he is tolerating oral diet may dc iv fluids -: is on iv vanc for mrsa in urine cs, may dc after 2 days -: needs placement, has refused before -: out pt retina specialist for blindness likely due to hemorrhage/dm -: diet is advanced to full liq diet today * . Review of Systems - Medications/Allergies Allergies/Adverse Reactions: Allergies Allergy/AdvReac Type Severity Reaction Status Date / Time No Known Allergies Allergy Verified 06/20/17 23:17 Medications: Current Medications Acetaminophen (Tylenol) 650 mg PO Q4H PRN PRN Reason: Headache/Fever or Pain Last Admin: 06/27/17 05:30 Dose: 650 mg Acetaminophen (Tylenol) 650 mg [place] Q4H PRN PRN Reason: Fever/Mild Pain Last Admin: 06/26/17 03:33 Dose: 650 mg Dextrose/Water (Dextrose 50%) 25 gm SLOW IVP PRN PRN PRN Reason: Hypoglycemia Glucagon (Glucagon) 1 mg IM PRN PRN PRN Reason: Hypoglycemia Hydralazine HCl (Apresoline) 10 mg SLOW IVP Q6H PRN PRN Reason: SBP GREATER THAN 180 Last Admin: 06/28/17 01:55 Dose: 10 mg Dextrose/Water (D5w) 1,000 mls @ 0 mls/hr IV .Q0M PRN; As Directed PRN Reason: Hypoglycemia Dextrose/Sodium Chloride (D5 1/2 Ns) 1,000 mls @ 100 mls/hr IV .Q10H [facility] [place] Last Admin: 06/28/17 11:08 Dose: 1,000 mls Vancomycin HCl 1 gm/ Device 200 mls @ 200 mls/hr IVPB 0100,1300 [facility] [place] Insulin Human Lispro (Humalog) 0 units SC .MILD SLIDING SCALE PRN PRN Reason: Mild Correctional Scale Last Admin: 06/25/17 05:58 Dose: 3 units Metoclopramide HCl (Reglan) 10 mg PO ACHS [facility] [place] Last Admin: 06/28/17 11:08 Dose: 10 mg Nystatin (Mycostatin Powder) 0 gm TOP TIDPRN PRN PRN Reason: AFFECTED AREA Last Admin: 06/27/17 07:16 Dose: 1 applic Ondansetron HCl (Zofran) 4 mg IVP Q6H PRN PRN Reason: Nausea/Vomiting Pantoprazole Sodium (Protonix) 40 mg PO BID [facility] [place] Last Admin: 06/28/17 07:47 Dose: 40 mg Potassium Chloride (K-Dur) 40 meq PO Q6HR [facility] [place] Stop: 06/29/17 06:01 Last Admin: 06/28/17 12:01 Dose: 40 meq Sodium Chloride (Flush - Normal Saline) 10 ml IVF Q12HR [facility] [place] Last Admin: 06/28/17 07:47 Dose: Not Given Sodium Chloride (Flush - Normal Saline) 10 ml IVF PRN PRN PRN Reason: Saline Flush Last Admin: 06/28/17 01:55 Dose: 10 ml
[2017-06-28] MEDS: Vancomycin HCl 1.5 GM, Admixture Fee 1 EACH in Sodium Chloride 0.9% 250 ML 300 ML IVPB SCH (15:24)
[2017-06-29] MEDS ORDERED: Vancomycin HCl 1 GM in Premix Bag 1 BAG IVPB SCH (01:00)
[2017-06-29] MEDS: hydrALAZINE 20 MG/ML VIAL SLOW IVP PRN ×2 (03:56→11:52)
[2017-06-29] MEDS: HumaLOG 300 UNITS/3 ML VIAL SC PRN ×3 (04:03→17:26)
[2017-06-29 05:35] LABS: #Eosinphils 0.1 thou/uL (0.0-0.7); #Lymphocytes 0.9 thou/uL (1.20-3.40); #Monocytes 0.7 thou/uL (0.11-0.59); #Neutrophils 8.3 thou/uL (1.40-6.50); %Eosinophils 0.6 % (0.0-10.0); %Lymphocytes 9.3 % (21.0-51.0); Hemoglobin 11.3 g/dL (14.0-18.0); Mean Corpuscular HGB CONC 32.2 g/dL (32.0-36.0); Mean Corpuscular Hemoglobin 33.6 pg (27.0-31.0); Mean Platelet Volume 6.9 fL (7.4-10.4); Platelet Count 343 thou/uL (130-400); RBC Distribution Width 13.5 % (11.5-14.5); Red Blood Cell (RBC) Count 3.37 mill/uL (4.70-6.10)
[2017-06-29 05:49] LABS: Anion Gap 12 mmol/L (10-20); BUN (Urea Nitrogen) 16 mg/dL (8.4-25.7); Calc. Creatinine Clearance 56 mL/min (70-130); Calcium 7.7 mg/dL (7.8-10.44); Carbon Dioxide 24 mmol/L (23-31); Chloride 105 mmol/L (98-107); Estimated GFR-MDRD 40; Glucose 319 mg/dL (83-110); Potassium 4.3 mmol/L (3.5-5.1); Sodium 137 mmol/L (136-145)
[2017-06-29] MEDS: Potassium Chloride 20 MEQ TAB PO SCH (05:53)
[2017-06-29] MEDS: Acetaminophen 325 MG TAB PO PRN (05:53)
[2017-06-29] MEDS: Metoclopramide HCl 10 MG TAB PO SCH ×2 (08:24→11:52)
[2017-06-29] MEDS: Dextrose 5 %-0.45 % NaCl 1,000 ML IV SCH ×3 (08:29→21:15)
--- NOTE | 2017-06-29 09:26 | PDOC.PN ---
- Subjective Encounter Start Date: 06/29/17 Encounter Start Time: 09:24 Subjective: no specific complaints - Objective Resuscitation Status: Resuscitation Status DNR:Do Not Resuscitate MAR Reviewed: Yes Vital Signs & Weight: Vital Signs (12 hours) Temp Pulse Resp BP BP BP Pulse Ox 06/29/17 08:00 98.3 F 84 20 163/76 H 97 06/29/17 06:20 98 06/29/17 06:01 84 20 97 06/29/17 05:54 89 166/50 H 06/29/17 03:56 89 191/84 H 06/29/17 03:50 98.4 F 89 20 191/84 H 91 L Weight Admit Weight 235 lb 14.4 oz Weight 250 lb 6.4 oz Most Recent Monitor Data Heart Rate from ECG 84 NIBP 126/66 NIBP BP-Mean 95 Respiration from ECG 24 SpO2 100 I&O: 06/28/17 06/29/17 06/30/17 06:59 06:59 06:59 Intake Total 240 2400 Output Total 1200 Balance -960 2400 Result Diagrams: 06/29/17 04:29 06/29/17 04:29 Additional Labs: Accuchecks 06/29/17 06/28/17 06/28/17 03:51 19:29 16:49 POC Glucose 293 H 254 H 243 H 06/28/17 11:12 POC Glucose 222 H Phys Exam - Physical Examination Constitutional: NAD Neck: no JVD Respiratory: clear to auscultation bilateral Cardiovascular: RRR, no significant murmur crisp valve sounds Gastrointestinal: soft, non-tender, positive bowel sounds Musculoskeletal: no edema Dx/Plan (1) UTI (urinary tract infection) Status: Acute Qualifiers: Urinary tract infection type: site unspecified Hematuria presence: without hematuria Qualified Code(s): N39.0 - Urinary tract infection, site not specified (2) DM (diabetes mellitus), type 2, uncontrolled Code(s): E11.65 - TYPE 2 DIABETES MELLITUS WITH HYPERGLYCEMIA Status: Chronic Qualifiers: Diabetes mellitus complication status: with ophthalmic complications Diabetic retinopathy severity: with unspecified retinopathy severity Diabetes mellitus macular edema: macular edema presence unspecified Diabetes mellitus senior care insulin use: without senior care use Laterality: bilateral (3) Gastroparesis Code(s): K31.84 - GASTROPARESIS Status: Acute (4) HTN (hypertension) Code(s): I10 - ESSENTIAL (PRIMARY) HYPERTENSION Status: Chronic Qualifiers: Hypertension type: essential hypertension Qualified Code(s): I10 - Essential (primary) hypertension (5) Metabolic acidosis Code(s): E87.2 - ACIDOSIS Status: Resolved (6) NSTEMI (non-ST elevated myocardial infarction) Code(s): I21.4 - NON-ST ELEVATION (NSTEMI) MYOCARDIAL INFARCTION Status: Resolved - Plan cont vancomycin x 2 days, vanc level -: cont acce/ ss/etc -: cont reglan -: discuss with consultants * .
--- NOTE | 2017-06-29 13:17 | PRG ---
DATE OF SERVICE: 06/29/2017 GI INPATIENT DAILY PROGRESS NOTE SUBJECTIVE: Mr. Cordero has been tolerating his full liquid diet. He tells me he has been passing gas and his abdomen feels much less distended. He is not complaining of any nausea or abdominal pain. OBJECTIVE: VITAL SIGNS: Temperature 98.3, pulse 84, blood pressure 163/76, 97% oxygen saturation on 2 liters na miki cannula. GENERAL: No acute distress. HEART: Regular rate and rhythm. LUNGS: Clear to auscultation bilaterally. ABDOMEN: Mildly distended, tympanitic to percussion throughout. Bowel sounds are present. Soft and nontender to palpation. EXTREMITIES: No peripheral edema. LABORATORY STUDIES: WBC 10.0, hemoglobin 11.3, platelets 343. Sodium 137, potassium 4.3, BUN 16, cr eatinine 1.64, calcium 7.7. ASSESSMENT AND PLAN: 1. Severe erosive esophagitis. 2. Gastritis. 3. Erosive duodenitis. Continue with acid suppression as previously outlined. 4. Nausea and vomiting, resolved. 5. Gastric distention, improved. I would try advancing his diet to more solid foods consistent carb ohydrate diet today. They are not able to perform gastric emptying study over the weekend and I thin k this could probably just be performed on an outpatient basis following hospital discharge. I will go ahead and discontinue the Reglan.
[2017-06-29] MEDS: Vancomycin HCl 1.5 GM, Admixture Fee 1 EACH in Sodium Chloride 0.9% 250 ML 300 ML IVPB SCH (15:04)
--- NOTE | 2017-06-29 15:05 | PRG ---
DATE OF SERVICE: 06/29/2017 SUBJECTIVE: Mr. Cordero is somnolent in bed, does not appear in any distress. OBJECTIVE: VITAL SIGNS: Temperature 97.9, pulse 80, respirations 20, O2 sat 98%, blood pressure 128/81. HEENT: Unremarkable. NECK: No adenopathy or JVD. CHEST: Clear. CARDIAC: S1 and S2, regular. ABDOMEN: Soft. EXTREMITIES: No edema. LABORATORY DATA: White blood cell count 10, hematocrit 35.2, platelet count 343. Sodium 137, potass ium 4.3, chloride 105, CO2 of 24, BUN 16, creatinine 1.6, glucose 319. ASSESSMENT: 1. Chronic obstructive pulmonary disease with exacerbation. 2. Osteomyelitis. 3. Alcoholism. PLAN: Reviewed the orders, basically continuing antibiotics for his osteomyelitis.
[2017-06-30 05:32] LABS: Anion Gap 14 mmol/L (10-20); BUN (Urea Nitrogen) 15 mg/dL (8.4-25.7); Calc. Creatinine Clearance 55 mL/min (70-130); Calcium 7.8 mg/dL (7.8-10.44); Carbon Dioxide 20 mmol/L (23-31); Chloride 108 mmol/L (98-107); Estimated GFR-MDRD 40; Glucose 256 mg/dL (83-110); Potassium 4.6 mmol/L (3.5-5.1); Sodium 137 mmol/L (136-145)
[2017-06-30] MEDS: HumaLOG 300 UNITS/3 ML VIAL SC PRN ×3 (05:33→17:39)
--- NOTE | 2017-06-30 08:11 | PRG ---
DATE OF SERVICE: 06/30/2017 SUBJECTIVE: Mr. Cordero is doing well today. He complains of decreased vision, which is a chronic prob jaylen for him. As recalled, he had gastroparesis and has seen by Dr. Singletary, this seems to be improved. He is tolerating his diet. Patient is status post 06/25/2017, debridement of plantar left great toe diabetic callus. This is superficial. Currently, the wound looks good. There is no evidence of in fection. I would recommend daily wound care with soap and water and applying antibiotic ointment wit h Band-Aid versus Silver Strip to the toe. He should follow up in my office in 3 or 4 weeks or soone r as needed. He could also follow up with Podiatry. At this point, I will see as needed. Please ca ll if necessary.
--- NOTE | 2017-06-30 11:01 | PDOC.PN ---
- Subjective Encounter Start Date: 06/30/17 Encounter Start Time: 10:59 Subjective: doing ok, only CO is poor vision - Objective Resuscitation Status: Resuscitation Status DNR:Do Not Resuscitate MAR Reviewed: Yes Vital Signs & Weight: Vital Signs (12 hours) Temp Pulse Resp BP Pulse Ox 06/30/17 08:00 98.8 F 81 20 177/81 H 97 Weight Admit Weight 235 lb 14.4 oz Weight 245 lb 15.657 oz Most Recent Monitor Data Heart Rate from ECG 84 NIBP 126/66 NIBP BP-Mean 95 Respiration from ECG 24 SpO2 100 I&O: 06/29/17 06/30/17 07/01/17 06:59 06:59 06:59 Intake Total 2400 Output Total 750 Balance 2400 -750 Result Diagrams: 06/29/17 04:29 06/30/17 04:18 Additional Labs: Accuchecks 06/30/17 06/29/17 06/29/17 04:23 20:34 16:48 POC Glucose 254 H 193 H 262 H 06/29/17 11:36 POC Glucose 246 H Phys Exam - Physical Examination Neck: no JVD Respiratory: clear to auscultation bilateral Cardiovascular: RRR, no significant murmur Gastrointestinal: soft, positive bowel sounds Musculoskeletal: edema present Dx/Plan (1) UTI (urinary tract infection) Status: Acute Qualifiers: Urinary tract infection type: site unspecified Hematuria presence: without hematuria Qualified Code(s): N39.0 - Urinary tract infection, site not specified (2) DM (diabetes mellitus), type 2, uncontrolled Code(s): E11.65 - TYPE 2 DIABETES MELLITUS WITH HYPERGLYCEMIA Status: Chronic Qualifiers: Diabetes mellitus complication status: with ophthalmic complications Diabetic retinopathy severity: with unspecified retinopathy severity Diabetes mellitus macular edema: macular edema presence unspecified Diabetes mellitus residential insulin use: without residential use Laterality: bilateral (3) Gastroparesis Code(s): K31.84 - GASTROPARESIS Status: Acute (4) HTN (hypertension) Code(s): I10 - ESSENTIAL (PRIMARY) HYPERTENSION Status: Chronic Qualifiers: Hypertension type: essential hypertension Qualified Code(s): I10 - Essential (primary) hypertension (5) Metabolic acidosis Code(s): E87.2 - ACIDOSIS Status: Resolved (6) NSTEMI (non-ST elevated myocardial infarction) Code(s): I21.4 - NON-ST ELEVATION (NSTEMI) MYOCARDIAL INFARCTION Status: Resolved - Plan awaiting gastic emptying study, cont reglan -: DC vancomycin? -: placement * .
--- NOTE | 2017-06-30 14:07 | PRG ---
DATE OF SERVICE: 06/30/2017 SUBJECTIVE: Mr. Cordero has no acute issues. OBJECTIVE: VITAL SIGNS: He is afebrile, heart rate is 81, respiratory rate is 20, oximetry is 97% on 2 liters, blood pressure 125/94. LUNGS: Clear. CARDIOVASCULAR: Regular rhythm. ABDOMEN: Soft. IMPRESSION: 1. Chronic obstructive pulmonary disease exacerbation, resolved. 2. Osteomyelitis, status post wound debridement. 3. Alcoholism. 4. Diabetes. 5. Medical noncompliance. 6. Diabetic gastroparesis. 7. Status post amputation. 8. Erosive duodenitis and esophagitis. 9. Change in vision? retinal hemorrhage associated with diabetes, some need to be followed up in a O phthalmologist office. I do not really see where the nuclear emptying study was ever done. He does appear stable from a pulmonary standpoint. We will sign off.
[2017-06-30 14:26] LABS: Vancomycin, Trough 27.6 ug/mL
[2017-06-30] MEDS: Dextrose 5 %-0.45 % NaCl 1,000 ML IV SCH ×2 (15:11→22:15)
--- NOTE | 2017-06-30 16:15 | PRG ---
DATE OF SERVICE: 06/30/2017 REASON FOR CONSULTATION: Abdominal distention, hematemesis. SUBJECTIVE: No acute events or problems overnight with the patient doing well this morning. He stat es that he has been able to tolerate a more solid diet as well as adding that he has had decreased ab dominal distention over the last 24-48 hours. Currently, denies any nausea, vomiting, fevers, chills , abdominal pain, odynophagia or dysphagia. OBJECTIVE: VITAL SIGNS: Temperature 98.3, pulse 81, blood pressure 125/94, respiratory rate 20, satting 97% on 1 liter nasal cannula. GENERAL: The patient is lying in bed in no acute distress. Alert and oriented x4. Significant decr ease in eyesight. CARDIOVASCULAR: Regular rate and rhythm with no discernible murmurs, gallops or rubs. RESPIRATORY: Clear to auscultation bilaterally with no discernible wheezes or rales. ABDOMEN: Normoactive bowel sounds. Moderate distention that is soft to palpation, not tense, tympan ic to percussion. No tenderness to palpation. EXTREMITIES: No cyanosis, clubbing or edema. Right [id number] amputation seen. LABORATORY DATA: Chemistry with sodium 137, potassium 4.6, chloride 108, CO2 20, BUN 15, creatinine 1.67, glucose 256. IMAGING STUDIES: Gastric emptying study has been ordered, but not performed as of yet. ASSESSMENT: The patient is an 81-year-old male with past medical history of poorly controlled diabet es, hypertension, and a right jlojg-[id number]-[id number] amputation secondary to diabetic foot ulcer initially pr esenting with non-ST elevation MD. Possible diabetic ketoacidosis, acute kidney injury, diarrhea, an d gastric distention now with improving gastric distention after nasogastric tube placement. Gastrointestinal bleeding: The patient presented with a myriad of medical comorbidities that have be en stabilized since he was first admitted, but he was noted to have increased abdominal distention on 06/25/2017 that prompted evaluation of KUB. Abdominal imaging did show significant gaseous distenti on of the stomach, which then prompted placement of a nasogastric tube, shortly after placement of th e nasogastric tube. He had a small amount of blood-tinged fluid concerning for upper gastrointestina l bleed. He underwent upper endoscopy on 06/26/2017 with findings of severe mid and distal erosive e sophagitis. The most likely continue contributed to the blood tinged fluid obtained on the nasogastr ic tube placement. At this point, the most likely reason for the coffee-ground emesis would be eithe r from traumatic nasogastric tube placement or exacerbation of severe distal erosive esophagitis. RECOMMENDATIONS: 1. We will continue patient on proton pump inhibitor 40 mg b.i.d. for severe erosive esophagitis for the next 4 weeks, then can decrease to 40 mg daily, indefinitely. 2. Would maintain standard acid reflux precautions. 3. Would refrain from placement of a subsequent nasogastric tube given the severity of overt erosive esophagitis and increased likelihood of nasogastric tube trauma. Gastric distention. Patient presenting with imaging on 06/25/2017 showing significant gaseous disten tion of the stomach that was concerning for possible gastric outlet obstruction. However, EGD perfor med on 06/26/2017 did not show any evidence of gastric outlet obstruction, although it did see some i ncreased edema within the duodenal bulb, but unlikely to be contributing to the current clinical situ ation. Given his admitting diagnosis of possible diabetic ketoacidosis and severely uncontrolled luigi betes, the likelihood of diabetic gastroparesis is higher on the differential, although has not impro mary at this time. RECOMMENDATIONS: 1. Gastric emptying study has been ordered. We will follow up on the results. 2. Advance the patient's diet as tolerated, but would maintain a low fat diet with increased frequen cy feeding throughout the day. 3. Would refrain from use of metoclopramide as a prokinetic at this time as it may skew the results of the gastric emptying study. We will continue to follow. Please page with any questions.
[2017-07-01 05:59] LABS: Anion Gap 12 mmol/L (10-20); BUN (Urea Nitrogen) 17 mg/dL (8.4-25.7); Calc. Creatinine Clearance 48 mL/min (70-130); Calcium 7.7 mg/dL (7.8-10.44); Carbon Dioxide 23 mmol/L (23-31); Chloride 106 mmol/L (98-107); Estimated GFR-MDRD 35; Glucose 270 mg/dL (83-110); Potassium 4.7 mmol/L (3.5-5.1); Sodium 136 mmol/L (136-145)
[2017-07-01] MEDS: HumaLOG 300 UNITS/3 ML VIAL SC PRN ×3 (06:46→16:45)
[2017-07-01] MEDS: Dextrose 5 %-0.45 % NaCl 1,000 ML IV SCH (08:55)
--- NOTE | 2017-07-01 10:58 | PDOC.PN ---
- Subjective Encounter Start Date: 07/01/17 Encounter Start Time: 10:57 Subjective: only CO is room to cold - Objective Resuscitation Status: Resuscitation Status DNR:Do Not Resuscitate Vital Signs & Weight: Vital Signs (12 hours) Temp Pulse Resp BP Pulse Ox 07/01/17 08:00 98.9 F 79 20 162/76 H 99 07/01/17 04:00 98.3 F 82 22 H 96 07/01/17 00:00 98.7 F 88 20 151/72 H 95 Weight Admit Weight 235 lb 14.4 oz Weight 247 lb 10.747 oz Most Recent Monitor Data Heart Rate from ECG 84 NIBP 126/66 NIBP BP-Mean 95 Respiration from ECG 24 SpO2 100 I&O: 06/30/17 07/01/17 07/02/17 06:59 06:59 06:59 Intake Total 1700 Output Total 750 925 Balance -750 775 Result Diagrams: 06/29/17 04:29 07/01/17 05:12 Additional Labs: Accuchecks 07/01/17 06/30/17 06/30/17 03:48 20:36 16:48 POC Glucose 231 H 180 H 232 H 06/30/17 11:31 POC Glucose 189 H Phys Exam - Physical Examination Neck: no JVD Respiratory: clear to auscultation bilateral Cardiovascular: RRR, no significant murmur Gastrointestinal: soft, non-tender, positive bowel sounds Musculoskeletal: edema present Deviation from normal: diffuse maculopapular rash Dx/Plan (1) UTI (urinary tract infection) Status: Acute Qualifiers: Urinary tract infection type: site unspecified Hematuria presence: without hematuria Qualified Code(s): N39.0 - Urinary tract infection, site not specified (2) DM (diabetes mellitus), type 2, uncontrolled Code(s): E11.65 - TYPE 2 DIABETES MELLITUS WITH HYPERGLYCEMIA Status: Chronic Qualifiers: Diabetes mellitus complication status: with ophthalmic complications Diabetic retinopathy severity: with unspecified retinopathy severity Diabetes mellitus macular edema: macular edema presence unspecified Diabetes mellitus buttermaker continuous churn insulin use: without buttermaker continuous churn use Laterality: bilateral (3) Gastroparesis Code(s): K31.84 - GASTROPARESIS Status: Acute (4) HTN (hypertension) Code(s): I10 - ESSENTIAL (PRIMARY) HYPERTENSION Status: Chronic Qualifiers: Hypertension type: essential hypertension Qualified Code(s): I10 - Essential (primary) hypertension (5) Metabolic acidosis Code(s): E87.2 - ACIDOSIS Status: Resolved (6) NSTEMI (non-ST elevated myocardial infarction) Code(s): I21.4 - NON-ST ELEVATION (NSTEMI) MYOCARDIAL INFARCTION Status: Resolved (7) Rash Code(s): R21 - RASH AND OTHER NONSPECIFIC SKIN ERUPTION Status: Acute Comment: suspect due to vancomycin - Plan cont current plan of care awaiting gastric emptying -: placement * .
--- NOTE | 2017-07-01 11:06 | PDOC.EVN ---
Event Note - Event Note Event Note: patient refuses gastric emptying study, working on placement
[2017-07-01] MEDS: Acetaminophen 325 MG TAB PO PRN (16:44)
--- NOTE | 2017-07-01 23:24 | PRG ---
DATE OF SERVICE: 07/01/2017 REASON FOR CONSULTATION: Abdominal distention, hematemesis. SUBJECTIVE: No acute events or problems overnight with the patient. The patient is doing well today . Currently, denies any nausea, vomiting, fevers, chills, abdominal pain, odynophagia, or dysphagia. Gastric emptying study was planned for today, but at this point, the patient is refusing the study. LABORATORY DATA: Chemistry with sodium of 136, potassium 4.7, chloride 106, CO2 23, BUN 17, creatini ne 1.87, glucose 270. IMAGING STUDIES: No current GI imaging studies are available for review. ASSESSMENT: The patient is an 81-year-old male with past medical history poorly controlled diabetes, hypertension, and a right [id number] amputation secondary to diabetic foot ulcer. Initially pre senting with non-ST elevation CO, possible diabetic ketoacidosis, acute kidney injury, diarrhea, and gastric distention, now with improving gastric distention. Patient presenting with imaging on 2017 showing significant gaseous distention of the stomach that was concerning for possible gastric o utlet obstruction; however, EGD performed on 06/26/2017, did not show any evidence contributory to th at diagnosis. With his significantly elevated glucose levels on admission and possible diabetic keto acidosis, a diagnosis of gastroparesis is within differential; however, patient is currently refusing further evaluation with a gastric emptying study at this time. RECOMMENDATIONS: 1. We would recommend a gastric emptying study as an outpatient. 2. Advance the patient's diet as tolerated, would maintain a low-fat diet with increased frequency t hroughout the day. We would refrain from use of metoclopramide as a prokinetic at this time, given t he lack of true diagnosis of gastroparesis. We will sign off at this time. Please call with any questions.
[2017-07-01] MEDS ORDERED: diphenhydrAMINE 25 MG CAP PO PRN (23:52)
[2017-07-02 05:15] LABS: Anion Gap 13 mmol/L (10-20); BUN (Urea Nitrogen) 23 mg/dL (8.4-25.7); Calc. Creatinine Clearance 45 mL/min (70-130); Calcium 7.9 mg/dL (7.8-10.44); Carbon Dioxide 22 mmol/L (23-31); Chloride 105 mmol/L (98-107); Estimated GFR-MDRD 32; Glucose 159 mg/dL (83-110); Potassium 4.6 mmol/L (3.5-5.1); Sodium 135 mmol/L (136-145)
[2017-07-02] MEDS: HumaLOG 300 UNITS/3 ML VIAL SC PRN (11:39)
--- NOTE | 2017-07-02 13:22 | PDOC.PN ---
- Subjective Encounter Start Date: 07/02/17 Encounter Start Time: 13:19 Subjective: not eating or drinking - Objective Resuscitation Status: Resuscitation Status DNR:Do Not Resuscitate MAR Reviewed: Yes Vital Signs & Weight: Vital Signs (12 hours) Temp Pulse Resp BP Pulse Ox 07/02/17 08:00 97.7 F 81 16 07/02/17 07:58 97.7 F 81 16 151/67 H 92 L 07/02/17 05:00 97.7 F 81 22 H 155/73 H 94 L Weight Admit Weight 235 lb 14.4 oz Weight 250 lb 7.475 oz Most Recent Monitor Data Heart Rate from ECG 84 NIBP 126/66 NIBP BP-Mean 95 Respiration from ECG 24 SpO2 100 I&O: 07/01/17 07/02/17 07/03/17 06:59 06:59 06:59 Intake Total 1700 1590 240 Output Total 925 725 Balance 775 865 240 Result Diagrams: 06/29/17 04:29 07/02/17 04:46 Additional Labs: Accuchecks 07/02/17 07/02/17 07/01/17 11:10 05:07 20:18 POC Glucose 203 H 155 H 158 H 07/01/17 16:21 POC Glucose 176 H Phys Exam - Physical Examination Constitutional: NAD Neck: no JVD Respiratory: clear to auscultation bilateral Cardiovascular: RRR, no significant murmur Gastrointestinal: soft, non-tender, positive bowel sounds Musculoskeletal: edema present Deviation from normal: erythematous rash stable, Dx/Plan (1) UTI (urinary tract infection) Status: Acute Qualifiers: Urinary tract infection type: site unspecified Hematuria presence: without hematuria Qualified Code(s): N39.0 - Urinary tract infection, site not specified (2) DM (diabetes mellitus), type 2, uncontrolled Code(s): E11.65 - TYPE 2 DIABETES MELLITUS WITH HYPERGLYCEMIA Status: Chronic Qualifiers: Diabetes mellitus complication status: with ophthalmic complications Diabetic retinopathy severity: with unspecified retinopathy severity Diabetes mellitus macular edema: macular edema presence unspecified Diabetes mellitus mcc insulin use: without mcc use Laterality: bilateral (3) Gastroparesis Code(s): K31.84 - GASTROPARESIS Status: Acute (4) HTN (hypertension) Code(s): I10 - ESSENTIAL (PRIMARY) HYPERTENSION Status: Chronic Qualifiers: Hypertension type: essential hypertension Qualified Code(s): I10 - Essential (primary) hypertension (5) Metabolic acidosis Code(s): E87.2 - ACIDOSIS Status: Resolved (6) NSTEMI (non-ST elevated myocardial infarction) Code(s): I21.4 - NON-ST ELEVATION (NSTEMI) MYOCARDIAL INFARCTION Status: Resolved (7) Rash Code(s): R21 - RASH AND OTHER NONSPECIFIC SKIN ERUPTION Status: Acute Comment: suspect due to vancomycin - Plan ready for placement except for oral intake -: trying unsuccessfully with CM to contact family * .
[2017-07-03 04:37] LABS: Anion Gap 15 mmol/L (10-20); BUN (Urea Nitrogen) 27 mg/dL (8.4-25.7); Calc. Creatinine Clearance 44 mL/min (70-130); Carbon Dioxide 21 mmol/L (23-31); Chloride 105 mmol/L (98-107); Estimated GFR-MDRD 31; Glucose 182 mg/dL (83-110); Potassium 4.4 mmol/L (3.5-5.1); Sodium 137 mmol/L (136-145)
--- NOTE | 2017-07-03 10:47 | PDOC.PN ---
- Subjective Encounter Start Date: 07/03/17 Encounter Start Time: 10:30 Subjective: Called by nursing due to LLE feeling cold. No doppler pulses obtained -: at DP/PT but has palpable L popliteal pulse. No pain or fever per pt. -: Nsg notes increased redness and swelling of LUE. - Objective Resuscitation Status: Resuscitation Status DNR:Do Not Resuscitate MAR Reviewed: Yes Vital Signs & Weight: Vital Signs (12 hours) Temp Pulse Resp BP Pulse Ox 07/03/17 07:11 98.3 F 85 18 163/74 H 93 L 07/03/17 04:00 98.1 F 83 18 159/66 H 95 07/03/17 00:00 98.2 F 83 18 149/75 H 98 Weight Admit Weight 235 lb 14.4 oz Weight 255 lb 8 oz Most Recent Monitor Data Heart Rate from ECG 84 NIBP 126/66 NIBP BP-Mean 95 Respiration from ECG 24 SpO2 100 I&O: 07/02/17 07/03/17 07/04/17 06:59 06:59 06:59 Intake Total 1590 1140 Output Total 725 550 Balance 865 590 Result Diagrams: 06/29/17 04:29 07/03/17 03:59 Additional Labs: Accuchecks 07/03/17 07/02/17 07/02/17 06:00 21:05 15:55 POC Glucose 168 H 149 H 140 H 07/02/17 11:10 POC Glucose 203 H Laboratory Tests 06/30/17 07/01/17 07/02/17 04:18 05:12 04:46 Creatinine 1.67 H 1.87 H 2.02 H Phys Exam - Physical Examination mild distress L eye with conjunctival injection HEENT: oral pharynx no lesions Neck: no JVD, supple exp wheezes Cardiovascular: RRR Gastrointestinal: soft, non-tender, no distention, positive bowel sounds non-palpable LLE DP/PT pulses, no doppler confirmation, L popliteal pulse palpable, L foot cool to touch at ankle and distally, mottled Musculoskeletal: no edema Deviation from normal: RUE with edema, erythema, calor prolonged cap refill > 10sec of LLE Skin: cap refill <2 seconds Dx/Plan (1) Ischemic ulcer of left foot Code(s): L97.529 - NON-PRESSURE CHRONIC ULCER OTH PRT LEFT FOOT W UNSP SEVERITY Status: Acute Comment: suspected ischemia of L foot, consult vascular surgery for evaluation, no doppler pulses obtained at DP/PT arteries, check LLE for arterial doppler flow (2) Physical deconditioning Code(s): R53.81 - OTHER MALAISE Status: Chronic (3) Rash Code(s): R21 - RASH AND OTHER NONSPECIFIC SKIN ERUPTION Status: Acute Comment: suspect due to vancomycin and "Red man syndrome" persists, supportive mgmt, off Vancomycin since 06/28/17 (4) DM (diabetes mellitus), type 2, uncontrolled Code(s): E11.65 - TYPE 2 DIABETES MELLITUS WITH HYPERGLYCEMIA Status: Chronic Qualifiers: Diabetes mellitus complication status: with ophthalmic complications Diabetic retinopathy severity: with unspecified retinopathy severity Diabetes mellitus macular edema: macular edema presence unspecified Diabetes mellitus extermination supervisor insulin use: without extermination supervisor use Laterality: bilateral Comment: ISS, Metformin held due to BENY (5) BENY (acute kidney injury) Code(s): N17.9 - ACUTE KIDNEY FAILURE, UNSPECIFIED Status: Acute Comment: continue to monitor trend, no improvement currently, avoid nephrotoxic meds and contrast media - Plan PT/OT, social secretary Check LLE arterial doppler today -: Consult Vasc surgery for ischemic L foot -: Avoid Vancomycin -: Check RUE venous dopp to r/o DVT -: WCT LLE * AM lab: BMP, CBC
[2017-07-03] MEDS ORDERED: predniSONE 20 MG TAB PO SCH (11:45)
[2017-07-03] MEDS: diphenhydrAMINE 25 MG CAP PO SCH ×2 (12:19→17:04)
[2017-07-03] MEDS: HumaLOG 300 UNITS/3 ML VIAL SC PRN ×2 (12:19→21:51)
[2017-07-03 15:30] VITALS: BMI 33.7
--- NOTE | 2017-07-03 16:35 | ULT ---
VENOUS DOPPLER ULTRASOUND RIGHT UPPER EXTREMITY: 07/03/17 HISTORY: Right arm erythema, edema. TECHNIQUE: Sanon scale, color flow and spectral doppler imaging of the deep venous system of the right upper extr emity is performed. There is good flow, normal waveforms and compression in the deep veins of the right upper extremity i ncluding the internal jugular, subclavian, axillary, basilic, brachial, radial and ulnar veins. There is lack of compression due to intraluminal clot in a communicating superficial vein in the righ t arm. IMPRESSION: 1. No evidence of deep venous thrombus in the right upper extremity. 2. Superficial thrombophlebitis in the right upper extremity. POS: [facility]
--- NOTE | 2017-07-03 16:39 | ULT ---
LEFT LOWER EXTREMITY ARTERIAL DOPPLER ULTRASOUND 07/03/17 COMPARISON: None. HISTORY: Left foot ischemia. TECHNIQUE: Multiplanar cunningham scale sonographic imaging of the arterial structures of the left lower extremity obt ained with color flow and spectral analysis. FINDINGS: The left common femoral artery, profunda femoral artery, and femoral artery are patent demonstrating biphasic waveforms. The popliteal artery is patent and demonstrates a monophasic waveform as does the anterior tibia artery, dorsalis pedis artery and posterior tibial artery. VESSELS Peak systolic velocity (cm/s) CRYSTAL CALIBRATOR 113 Profunda femoral artery 86 SFA proximal 117 SFA mid 71 SFA distal 97 Popliteal artery 61 HAYLEY 108 GLUING MACHINE OPERATOR AUTOMATIC 75 DTA 55 IMPRESSION: Arterial structures within the left lower extremity are patent. There are abnormal monophasic wavefor ms identified within the popliteal artery and the arterial runoff vessels of the left calf. CT angiog imani could better assess for an underlying area of hemodynamically significant stenosis. POS: [facility]
--- NOTE | 2017-07-03 17:00 | CON ---
DATE OF CONSULTATION: 07/03/2017 HISTORY OF PRESENT ILLNESS: This is an 81-year-old gentleman who has been in the hospital almost 2 w eeks following an episode of diabetic ketoacidosis. I was asked to see him in regards to a cool left foot. PAST MEDICAL AND SURGICAL HISTORY: Includes a longstanding smoking history, diabetes mellitus and hy pertension. The patient's previous right [id number] amputation was about 12 years ago in [place], [place]. He has lived here at [facility] for about 3 years and his lives somewhere in [place]. Sonia franklin has also had left foot surgery at some point in the recent past as well as an appendectomy. He den ies any pain in his left foot. He gets around with an electric wheelchair at the house. PHYSICAL EXAMINATION: GENERAL: On examination, he is an elderly gentleman appearing his stated age. His upper body is red except for his hands which are more of a grayish color. He has an increased chest AP diameter. CARDIAC: Exam revealed a regular rate and rhythm and I do not appreciate any murmurs. LUNGS: Have distant breath sounds with some late expiratory wheezes. ABDOMEN: Obese, nontender and unable to palpate for an aneurysm due to his size. He does appear to have a diastasis in the midline. EXTREMITIES: He has palpable femoral pulses and is wearing a diaper. He has palpable popliteal puls e on the left with a right-sided BKA. He has no palpable pedal pulses, but does have an excellent bi phasic to triphasic left posterior tibial signal. Dorsalis pedis and peroneal signals are not presen t. He has about a 3 mm clean ulceration shallow at the base of his great toe distally. ASSESSMENT AND PLAN: At this time, the patient obviously has small vessel peripheral vascular diseas e. He has a popliteal pulse possibly aneurysmal, but given his multiple other medical problems and e ssentially asymptomatic nature of this left lower extremity angiography. His baseline creatini ne as well is about 2. Would continue local wound care and treat expectantly.
[2017-07-04] MEDS: diphenhydrAMINE 25 MG CAP PO SCH ×4 (00:33→17:13)
[2017-07-04 04:36] LABS: Anion Gap 20 mmol/L (10-20); BUN (Urea Nitrogen) 31 mg/dL (8.4-25.7); Calc. Creatinine Clearance 46 mL/min (70-130); Calcium 8.3 mg/dL (7.8-10.44); Carbon Dioxide 19 mmol/L (23-31); Chloride 103 mmol/L (98-107); Estimated GFR-MDRD 32; Glucose 239 mg/dL (83-110); Potassium 5.5 mmol/L (3.5-5.1); Sodium 136 mmol/L (136-145)
[2017-07-04 04:58] LABS: Band 20 % (5-11); Lymphocytes 6 % (21-51); MDiff Complete? YES; Macrocytosis SLIGHT = 6-15 cells (100X) (0-5/hpf); Mean Corpuscular HGB CONC 30.9 g/dL (32.0-36.0); Mean Corpuscular Hemoglobin 32.3 pg (27.0-31.0); Mean Platelet Volume 6.6 fL (7.4-10.4); Monocytes 1 % (0-10); Neutrophil 73 % (42-75); PLT Morphology Comment Appears Adequate; Platelet Count 396 thou/uL (130-400); RBC Distribution Width 13.6 % (11.5-14.5); Red Blood Cell (RBC) Count 3.72 mill/uL (4.70-6.10); White Blood Cell (WBC) Count 9.6 thou/uL (4.8-10.8)
[2017-07-04] MEDS: HumaLOG 300 UNITS/3 ML VIAL SC PRN ×4 (05:54→20:26)
[2017-07-04] MEDS: predniSONE 20 MG TAB PO SCH (08:13)
--- NOTE | 2017-07-04 15:36 | PDOC.PN ---
- Subjective Encounter Start Date: 07/04/17 Encounter Start Time: 15:15 Subjective: f/u for ischemic LLE with vascular surgery not recommending any -: acute intervention. Has collateral flow though limited. Feels better -: overall. - Objective Resuscitation Status: Resuscitation Status DNR:Do Not Resuscitate MAR Reviewed: Yes Vital Signs & Weight: Vital Signs (12 hours) Temp Pulse Resp BP Pulse Ox 07/04/17 11:18 97.5 F L 79 20 173/74 H 97 07/04/17 08:30 168/69 H 07/04/17 08:00 98.2 F 77 20 97 07/04/17 07:50 98.2 F 77 20 183/81 H 97 07/04/17 04:00 97.9 F 73 20 142/79 H 96 Weight Admit Weight 235 lb 14.4 oz Weight 256 lb 3.2 oz Most Recent Monitor Data Heart Rate from ECG 84 NIBP 126/66 NIBP BP-Mean 95 Respiration from ECG 24 SpO2 100 I&O: 07/03/17 07/04/17 07/05/17 06:59 06:59 06:59 Intake Total 1140 125 Output Total 550 1650 Balance 590 -1525 Result Diagrams: 07/04/17 04:04 07/04/17 04:04 Additional Labs: Accuchecks 07/04/17 07/04/17 07/03/17 10:59 05:28 19:25 POC Glucose 233 H 223 H 172 H 07/03/17 15:56 POC Glucose 140 H Radiology Reviewed by me: Yes (RUE - superficial thrombophlebitis; LLE - diminished flow but present) Phys Exam - Physical Examination Constitutional: NAD HEENT: PERRLA, oral pharynx no lesions Neck: no JVD, supple diminished in bases Cardiovascular: RRR Gastrointestinal: soft, non-tender, no distention, positive bowel sounds RUE edema, +erythema; R BKA L foot cool to touch, prolonged cap refill Musculoskeletal: pulses present, edema present Neurological: moves all 4 limbs Psychiatric: A&O x 3 Skin: normal turgor, cap refill <2 seconds Dx/Plan (1) Ischemic ulcer of left foot Code(s): L97.529 - NON-PRESSURE CHRONIC ULCER OTH PRT LEFT FOOT W UNSP SEVERITY Status: Acute Comment: suspected ischemia of L foot but vascular surgery recommending no acute intervention, supportive until either pulses unobtainable or foot pain (2) Physical deconditioning Code(s): R53.81 - OTHER MALAISE Status: Chronic Comment: PT for mobilization (3) Rash Code(s): R21 - RASH AND OTHER NONSPECIFIC SKIN ERUPTION Status: Acute Comment: suspect due to vancomycin and "Red man syndrome" persists, supportive mgmt, off Vancomycin since 06/28/17, mild improvement (4) DM (diabetes mellitus), type 2, uncontrolled Code(s): E11.65 - TYPE 2 DIABETES MELLITUS WITH HYPERGLYCEMIA Status: Chronic Qualifiers: Diabetes mellitus complication status: with ophthalmic complications Diabetic retinopathy severity: with unspecified retinopathy severity Diabetes mellitus macular edema: macular edema presence unspecified Diabetes mellitus superintendent marine oil terminal insulin use: without superintendent marine oil terminal use Laterality: bilateral Comment: ISS, Metformin held due to BENY (5) BENY (acute kidney injury) Code(s): N17.9 - ACUTE KIDNEY FAILURE, UNSPECIFIED Status: Acute Comment: continue to monitor trend, no improvement currently, avoid nephrotoxic meds and contrast media, start NS @ 75ml/h - Plan Stable overall -: Start NS @ 75ml/h -: Supportive mgmt for RUE/thrombophlebitis -: PT for mobilization -: AM lab: BMP * Likely to SNF([facility]) in 48h
[2017-07-04] MEDS ORDERED: cloNIDine 0.1 MG TAB PO PRN (15:44)
[2017-07-04] MEDS ORDERED: hydrALAZINE 20 MG/ML VIAL SLOW IVP PRN (15:44)
[2017-07-04] MEDS ORDERED: Sodium Chloride 0.9% 1,000 ML IV SCH (15:45)
[2017-07-04] MEDS: Carvedilol 6.25 MG TAB PO SCH (16:40)
[2017-07-05] MEDS: diphenhydrAMINE 25 MG CAP PO SCH ×3 (00:04→12:02)
[2017-07-05] MEDS: HumaLOG 300 UNITS/3 ML VIAL SC PRN ×4 (05:36→21:10)
[2017-07-05 06:32] LABS: Anion Gap 20 mmol/L (10-20); BUN (Urea Nitrogen) 42 mg/dL (8.4-25.7); Calc. Creatinine Clearance 47 mL/min (70-130); Calcium 8.1 mg/dL (7.8-10.44); Carbon Dioxide 20 mmol/L (23-31); Chloride 102 mmol/L (98-107); Estimated GFR-MDRD 33; Glucose 292 mg/dL (83-110); Potassium 5.5 mmol/L (3.5-5.1); Sodium 136 mmol/L (136-145)
[2017-07-05] MEDS: Carvedilol 6.25 MG TAB PO SCH ×2 (08:09→17:52)
[2017-07-05] MEDS: predniSONE 20 MG TAB PO SCH (08:09)
[2017-07-05] MEDS ORDERED: diphenhydrAMINE 25 MG CAP PO PRN (17:00)
[2017-07-05] MEDS ORDERED: Aspirin 325 mg Enteric Coated Tablet PO SCH (17:15)
[2017-07-05 17:56] LABS: Anion Gap 15 mmol/L (10-20); BUN (Urea Nitrogen) 43 mg/dL (8.4-25.7); Calc. Creatinine Clearance 51 mL/min (70-130); Calcium 8.1 mg/dL (7.8-10.44); Carbon Dioxide 22 mmol/L (23-31); Chloride 103 mmol/L (98-107); Estimated GFR-MDRD 36; Glucose 329 mg/dL (83-110); Potassium 4.9 mmol/L (3.5-5.1); Sodium 135 mmol/L (136-145)
[2017-07-05 18:11] LABS: Band 4 % (5-11); Eosinophils 1 % (0-10); Hemoglobin 11.2 g/dL (14.0-18.0); Lymphocytes 4 % (21-51); MDiff Complete? YES; Mean Corpuscular HGB CONC 32.5 g/dL (32.0-36.0); Mean Corpuscular Hemoglobin 33.7 pg (27.0-31.0); Monocytes 1 % (0-10); Neutrophil 90 % (42-75); PLT Morphology Comment Appears Adequate; Platelet Count 352 thou/uL (130-400); RBC Distribution Width 13.6 % (11.5-14.5); Red Blood Cell (RBC) Count 3.33 mill/uL (4.70-6.10); White Blood Cell (WBC) Count 10.2 thou/uL (4.8-10.8)
[2017-07-05] MEDS ORDERED: NPH, Human Insulin Isophane 300 UNIT/3 ML VIAL SC SCH (21:00)
--- NOTE | 2017-07-05 21:52 | PDOC.PN ---
- Subjective Encounter Start Date: 07/05/17 Encounter Start Time: 17:00 Patient seen and examined. No new complaints. No overnight events - Objective Resuscitation Status: Resuscitation Status DNR:Do Not Resuscitate MAR Reviewed: Yes Vital Signs & Weight: Vital Signs (12 hours) Temp Pulse Resp BP BP BP Pulse Ox 07/05/17 20:00 97.5 F L 72 22 H 159/77 H 92 L 07/05/17 17:52 156/77 H 07/05/17 16:56 97.3 F L 71 18 156/77 H 93 L 07/05/17 11:53 98.2 F 75 18 170/93 H 95 Weight Admit Weight 235 lb 14.4 oz Weight 250 lb 11.2 oz Most Recent Monitor Data Heart Rate from ECG 84 NIBP 126/66 NIBP BP-Mean 95 Respiration from ECG 24 SpO2 100 I&O: 07/04/17 07/05/17 07/06/17 06:59 06:59 06:59 Intake Total 125 870 360 Output Total 1650 1675 1050 Balance -1525 -805 -690 Result Diagrams: 07/05/17 17:21 07/05/17 17:21 Additional Labs: Accuchecks 07/05/17 07/05/17 07/05/17 20:14 15:49 10:40 POC Glucose 321 H 322 H 300 H 07/05/17 05:09 POC Glucose 281 H Phys Exam - Physical Examination Constitutional: NAD Respiratory: no wheezing, no rhonchi Cardiovascular: RRR, no rub Gastrointestinal: soft, positive bowel sounds Neurological: moves all 4 limbs Psychiatric: A&O x 3 Dx/Plan - Plan DVT proph w/SCDs IMPRESSION: 1. Infected Diabetic foot s/p debridement 1-24 2. Hyperkalemia (sample hemolysed) 3. BENY on CKD 3 - Patient refusing IV access 4. DM2 - on sliding scale 5. DKA on admission - resolved/Lactic acidosis/Hypokalemia/Tobacco dependence/ Acute hypoxic respiratory failure/Dehydration/HTN/Physical deconditioning/ Elevated troponins due to demand ischemia / Grade D Esophagitis & duodenitis s/ p EGD 1-25 / PVD/Obesity BMI 33/Chronic alcoholism Plan: * Add Multivitamins/Vit B!2/Folic acid due to macrocytosis * Add Doxycycline * DC Prednisone * AM labs * Repeat labs showed normal Potassium * Increase PO intake * Cont current meds as below * Add Aspirin due to PVD - low dose - Patient has no active bleeding Review of Systems - Review of Systems Respiratory: negative: Cough, Dry, Shortness of Breath, Hemoptysis, SOB with Excertion, Pleuritic Pain, Sputum, Wheezing Cardiovascular: negative: chest pain, palpitations, orthopnea, paroxysmal nocturnal dyspnea, edema, light headedness, other - Medications/Allergies Allergies/Adverse Reactions: Allergies Allergy/AdvReac Type Severity Reaction Status Date / Time vancomycin Allergy Rash Verified 07/01/17 11:28 Medications: Current Medications Acetaminophen (Tylenol) 650 mg PO Q4H PRN PRN Reason: Headache/Fever or Pain Last Admin: 07/01/17 16:44 Dose: 650 mg Acetaminophen (Tylenol) 650 mg [place] Q4H PRN PRN Reason: Fever/Mild Pain Last Admin: 06/26/17 03:33 Dose: 650 mg Aspirin (Ecotrin) 325 mg PO DAILY [facility] Carvedilol (Coreg) 6.25 mg PO BID[facility] Last Admin: 07/05/17 17:52 Dose: 6.25 mg Clonidine (Catapres) 0.1 mg PO Q4H PRN PRN Reason: Systolic BP > 180 Dextrose/Water (Dextrose 50%) 25 gm SLOW IVP PRN PRN PRN Reason: Hypoglycemia Diphenhydramine HCl (Benadryl) 25 mg PO Q6H PRN PRN Reason: Itching & Insomnia Glucagon (Glucagon) 1 mg IM PRN PRN PRN Reason: Hypoglycemia Hydralazine HCl (Apresoline) 10 mg SLOW IVP Q4H PRN PRN Reason: Systolic BP > 180 Dextrose/Water (D5w) 1,000 mls @ 0 mls/hr IV .Q0M PRN; As Directed PRN Reason: Hypoglycemia Insulin Human Lispro (Humalog) 0 units SC .MODERATE SLIDING SC PRN PRN Reason: Moderate Correctional Scale Insulin Human Lispro (Humalog) 0 units SC .BEDTIME SLIDING SC PRN PRN Reason: Bedtime Correctional Scale Last Admin: 07/05/17 21:10 Dose: 4 unit Insulin Human NPH (Humulin N) 10 unit SC [facility] Stop: 07/05/17 23:00 Last Admin: 07/05/17 21:08 Dose: 10 unit Nystatin (Mycostatin Powder) 0 gm TOP TIDPRN PRN PRN Reason: AFFECTED AREA Last Admin: 06/27/17 21:12 Dose: 1 applic Ondansetron HCl (Zofran) 4 mg IVP Q6H PRN PRN Reason: Nausea/Vomiting Pantoprazole Sodium (Protonix) 40 mg PO BID [facility] Last Admin: 07/05/17 21:09 Dose: 40 mg Sodium Chloride (Flush - Normal Saline) 10 ml IVF PRN PRN PRN Reason: Saline Flush Last Admin: 06/28/17 01:55 Dose: 10 ml
[2017-07-06] MEDS: HumaLOG 300 UNITS/3 ML VIAL SC PRN ×3 (02:37→11:58)
[2017-07-06 05:34] LABS: Anion Gap 12 mmol/L (10-20); BUN (Urea Nitrogen) 42 mg/dL (8.4-25.7); Calc. Creatinine Clearance 52 mL/min (70-130); Calcium 8.3 mg/dL (7.8-10.44); Carbon Dioxide 25 mmol/L (23-31); Chloride 103 mmol/L (98-107); Estimated GFR-MDRD 38; Glucose 267 mg/dL (83-110); Potassium 4.7 mmol/L (3.5-5.1); Sodium 135 mmol/L (136-145)
[2017-07-06] MEDS: Carvedilol 6.25 MG TAB PO SCH ×2 (08:14→16:30)
[2017-07-06] MEDS: Aspirin 81 mg Enteric Coated Tablet PO SCH (08:14)
[2017-07-06] MEDS: Multivit, Therapeutic 1 TAB PO SCH (08:14)
[2017-07-06] MEDS: Folic Acid 1 MG TAB PO SCH (08:14)
[2017-07-06] MEDS: Doxycycline 100 MG CAP PO SCH ×2 (08:14→21:33)
[2017-07-06] MEDS: pyridOXINE 50 MG (B6) TAB PO SCH (08:18)
[2017-07-06] MEDS: Cyanocobalamin (Vitamin B-12) 1,000 MCG TAB PO SCH (08:18)
[2017-07-06] MEDS ORDERED: Aspirin 325 mg Enteric Coated Tablet PO SCH (09:00)
[2017-07-06] MEDS ORDERED: NPH, Human Insulin Isophane 300 UNIT/3 ML VIAL SC SCH (09:30)
[2017-07-06] MEDS ORDERED: Fluconazole 100 MG TAB PO SCH (14:15)
[2017-07-06] MEDS: Saccharomyces boulardii 250 MG CAP PO SCH (14:16)
--- NOTE | 2017-07-06 20:58 | PDOC.PN ---
- Subjective Encounter Start Date: 07/06/17 Encounter Start Time: 13:00 Patient seen and examined. No new complaints. No overnight events - Objective Resuscitation Status: Resuscitation Status DNR:Do Not Resuscitate MAR Reviewed: Yes Vital Signs & Weight: Vital Signs (12 hours) BP 07/06/17 16:30 156/77 H Weight Admit Weight 235 lb 14.4 oz Weight 245 lb 1.6 oz Most Recent Monitor Data Heart Rate from ECG 84 NIBP 126/66 NIBP BP-Mean 95 Respiration from ECG 24 SpO2 100 I&O: 07/05/17 07/06/17 07/07/17 06:59 06:59 06:59 Intake Total 870 560 840 Output Total 1675 2250 Balance -805 -1690 840 Result Diagrams: 07/05/17 17:21 07/06/17 04:39 Additional Labs: Accuchecks 07/06/17 07/06/17 07/06/17 19:59 16:38 11:27 POC Glucose 180 H 214 H 243 H 07/06/17 02:37 POC Glucose 270 H Phys Exam - Physical Examination Constitutional: NAD Respiratory: no wheezing, no rhonchi Cardiovascular: RRR, no rub Gastrointestinal: soft, non-tender, positive bowel sounds Musculoskeletal: no edema Left toe dressing + Dx/Plan - Plan DVT proph w/SCDs IMPRESSION: 1. Infected Diabetic foot with cellulitiss/p debridement 1 2. Mila UTI vs colonization 3. BENY on CKD 3 - Patient refusing IV access 4. DM2 - on sliding scale 5. DKA on admission - resolved/Lactic acidosis/Hypokalemia/Tobacco dependence/ Acute hypoxic respiratory failure/Dehydration/HTN/Physical deconditioning/ Elevated troponins due to demand ischemia / Grade D Esophagitis & duodenitis s/ p EGD 1-25 / PVD/Obesity BMI 33/Chronic alcoholism / Hyperkalemia (sample hemolysed) Plan: * Cont Multivitamins/Vit B!2/Folic acid due to macrocytosis * Cont Doxycycline * Cont ASA * DC Prednisone * Cont current meds as below * Cont PT * DC in AM to SNF if stable * Add fluconazole due to UTI - dose adjusted based on renal function Review of Systems - Review of Systems Respiratory: negative: Cough, Dry, Shortness of Breath, Hemoptysis, SOB with Excertion, Pleuritic Pain, Sputum, Wheezing Cardiovascular: negative: chest pain, palpitations, orthopnea, paroxysmal nocturnal dyspnea, edema, light headedness Gastrointestinal: negative: Nausea, Vomiting, Abdominal Pain, Diarrhea, Constipation, Melena, Hematochezia - Medications/Allergies Allergies/Adverse Reactions: Allergies Allergy/AdvReac Type Severity Reaction Status Date / Time vancomycin Allergy Rash Verified 07/01/17 11:28 Medications: Current Medications Acetaminophen (Tylenol) 650 mg PO Q4H PRN PRN Reason: Headache/Fever or Pain Last Admin: 07/01/17 16:44 Dose: 650 mg Acetaminophen (Tylenol) 650 mg [place] Q4H PRN PRN Reason: Fever/Mild Pain Last Admin: 06/26/17 03:33 Dose: 650 mg Aspirin (Ecotrin) 81 mg PO DAILY [facility] Last Admin: 07/06/17 08:14 Dose: 81 mg [facility]ilol ([facility]g) [facility] Last Admin: 07/06/17 16:30 Dose: 6.25 mg Clonidine (Catapres) 0.1 mg PO Q4H PRN PRN Reason: Systolic BP > 180 Cyanocobalamin (Vitamin B-12) 1,000 mcg PO DAILY [facility] Last Admin: 07/06/17 08:18 Dose: 1,000 mcg Dextrose/Water (Dextrose 50%) 25 gm SLOW IVP PRN PRN PRN Reason: Hypoglycemia Diphenhydramine HCl (Benadryl) 25 mg PO Q6H PRN PRN Reason: Itching & Insomnia Doxycycline Hyclate (Vibramycin) 100 mg PO BID [facility] Last Admin: 07/06/17 08:14 Dose: 100 mg Fluconazole (Diflucan) 50 mg PO DAILY [facility] Folic Acid (Folvite) 1 mg PO DAILY [facility] Last Admin: 07/06/17 08:14 Dose: 1 mg Glucagon (Glucagon) 1 mg IM PRN PRN PRN Reason: Hypoglycemia Hydralazine HCl (Apresoline) 10 mg SLOW IVP Q4H PRN PRN Reason: Systolic BP > 180 Dextrose/Water (D5w) 1,000 mls @ 0 mls/hr IV .Q0M PRN; As Directed PRN Reason: Hypoglycemia Insulin Human Lispro (Humalog) 0 units SC .MODERATE SLIDING SC PRN PRN Reason: Moderate Correctional Scale Last Admin: 07/06/17 11:58 Dose: 4 unit Insulin Human Lispro (Humalog) 0 units SC .BEDTIME SLIDING SC PRN PRN Reason: Bedtime Correctional Scale Last Admin: 07/06/17 02:37 Dose: 3 unit Insulin Human NPH (Humulin N) 10 unit SC DAILY [facility] Multivitamins (Theragran) 1 tab PO DAILY [facility] Last Admin: 07/06/17 08:14 Dose: 1 tab Nystatin (Mycostatin Powder) 0 gm TOP TIDPRN PRN PRN Reason: AFFECTED AREA Last Admin: 06/27/17 21:12 Dose: 1 applic Ondansetron HCl (Zofran) 4 mg IVP Q6H PRN PRN Reason: Nausea/Vomiting Pantoprazole Sodium (Protonix) 40 mg PO BID [facility] Last Admin: 07/06/17 08:14 Dose: 40 mg Pyridoxine HCl (Vitamin B 6) 50 mg PO DAILY [facility] Last Admin: 07/06/17 08:18 Dose: 50 mg Saccharomyces Boulardii (Florastor) 250 mg PO 1500 [facility] Last Admin: 07/06/17 14:16 Dose: 250 mg Sodium Chloride (Flush - Normal Saline) 10 ml IVF PRN PRN PRN Reason: Saline Flush Last Admin: 07/06/17 08:14 Dose: 10 ml Thiamine HCl (Thiamine) 100 mg PO DAILY [facility] Last Admin: 07/06/17 08:14 Dose: 100 mg
[2017-07-07] MEDS: HumaLOG 300 UNITS/3 ML VIAL SC PRN ×2 (05:20→16:32)
[2017-07-07] MEDS ORDERED: NPH, Human Insulin Isophane 300 UNIT/3 ML VIAL SC SCH (09:00)
[2017-07-07] MEDS ORDERED: Fluconazole 100 MG TAB PO SCH (09:00)
[2017-07-07] MEDS: Doxycycline 100 MG CAP PO SCH (09:44)
[2017-07-07] MEDS: Multivit, Therapeutic 1 TAB PO SCH (09:45)
[2017-07-07] MEDS: Aspirin 81 mg Enteric Coated Tablet PO SCH (09:46)
[2017-07-07] MEDS: Folic Acid 1 MG TAB PO SCH (09:46)
[2017-07-07] MEDS: Carvedilol 6.25 MG TAB PO SCH ×2 (09:46→16:31)
[2017-07-07] MEDS: Cyanocobalamin (Vitamin B-12) 1,000 MCG TAB PO SCH (09:47)
[2017-07-07] MEDS: pyridOXINE 50 MG (B6) TAB PO SCH (09:47)
[2017-07-07] MEDS: Saccharomyces boulardii 250 MG CAP PO SCH (14:26)
[2017-07-07] MEDS: Acetaminophen 325 MG TAB PO PRN (14:26)
[2017-07-07 16:30] VITALS: TEMP 98.1
[2017-07-07 16:36] VITALS: BP 162/73
--- NOTE | 2017-07-07 19:38 | DIS ---
DATE OF DISCHARGE: 07/07/2017 DISCHARGE DISPOSITION: To [facility]. ALLERGIES: The patient is allergic to VANCOMYCIN. The patient was seen and examined on the day of discharge, denies any new complaints. DISCHARGE MEDICATIONS: Tylenol as needed, aspirin 81 mg daily, carvedilol 6.25 mg twice a day, vitam in B12, folic acid and multivitamins with thiamine daily, vitamin B6 daily, Florastor daily for 4 wee ks, nystatin powder twice a day, Protonix 40 mg twice a day, NPH 10 units daily, Diflucan 50 mg daily for 1 week, doxycycline 100 mg twice a day for 1 week. INPATIENT CONSULTANTS: 1. Cardiology, Dr. Brothers. 2. Pulmonary, Dr. Stafford. 3. General Surgery, Dr. Hays. 4. Vascular, Dr. Terrell. 5. Gastroenterology, Dr. Singletary. INPATIENT PROCEDURES: 1. On 06/25/2017, the patient underwent debridement of the left great toe diabetic ulcer by Dr. Moraima eagle. 2. On 06/26/2017, the patient underwent EGD. EGD by Dr. Singletary that showed grade D erosive esophagiti s in the distal and the mid esophagus with mild erosive gastritis with NG tube trauma. It also showe d duodenitis in the duodenal bulb without any evidence of mechanical obstruction or stricture. 3. Aspiration precaution was emphasized. Please note, the patient declined gastric emptying study. Please refer to the various notes by the consultants for details. I have only seen this patient for the last 2 days. 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 Please refer to the history and physical dated 06/20/[address] Wilson for further details. The patient was admitted to the hospital with a diagnosis of diabetic ketoacidosis and was placed on DKA protocol. He was seen by several consultants as discussed above. His workup was consistent with lactic acidosis with acute hypoxic respiratory failure as well as gastric distention. He was found to have an infected diabetic foot ulcer with cellulitis requiring debridement by Dr. Hays. Due to elevated cardiac enzymes, he was seen by Cardiology, Dr. Brothers. Echocardiogram showed ejection frac tion 45% to 55% with moderate tricuspid regurgitation, mild mitral regurgitation and moderately eleva catarino pulmonary artery pressure estimated at 65 mmHg. He has been cleared by consultants for discharge . Aspiration precaution was emphasized. He will be discharged to [facility] for [facility]pc care. FINAL DIAGNOSES: 1. Diabetic ketoacidosis on admission, resolved. 2. Lactic acidosis. 3. Infected diabetic foot ulcer with cellulitis, status post debridement. 4. Mila urinary tract infection versus colonization. 5. Acute kidney injury on chronic kidney disease stage 3. Please note, the patient refused IV acces s over the last week or so. He will benefit from repeat labs next week. 6. Diabetes mellitus type 2. 7. Tobacco dependence. 8. Acute hypoxic respiratory failure on admission, improved. 9. Dehydration. 10. Hypertension. 11. Physical deconditioning. 12. Elevated troponins due to demand ischemia. 13. Grade D esophagitis and duodenitis, status post esophagogastroduodenoscopy on 06/26/2017. 14. Peripheral vascular disease. 15. Obesity with a body mass index of 33. 16. Chronic alcoholism. 17. Hyperkalemia due to hemolyzed sample, resolved. 18. Medication noncompliance. Total time coordinating the discharge of this patient was 38 minutes. Again, please refer to the [facility] ious notes for details of the hospitalization. DIAGNOSTIC TESTS: 1. MRI of the brain was negative. 2. Chest x-ray on admission showed mild cardiomegaly. 3. X-ray of the foot on admission was negative for osteomyelitis. It showed severe degenerative lonny nges of the left foot. 4. Vascular ultrasound on 07/03/2017 showed superficial thrombophlebitis in the right upper extremit y. 5. Lower extremity ultrasound with Doppler on 07/03/2017 showed abnormal monophasic waveforms identi fied within the popliteal artery. 6. CT angiogram was recommended. However, due to renal function, it was not done. Plan of care was discussed with the patient in detail. He stated understanding.
--- NOTE | 2017-07-12 18:59 | EKG ---
Test Reason : Blood Pressure : / mmHG Vent. Rate : 086 BPM Atrial Rate : 076 BPM P-R Int : 000 ms QRS Dur : 136 ms QT Int : 482 ms P-R-T Axes : 000 -84 165 degrees QTc Int : 576 ms Atrial fibrillation with premature ventricular or aberrantly conducted complexes Left axis deviation Non-specific intra-ventricular conduction block Inferior infarct , age undetermined Cannot rule out Anterior infarct , age undetermined Marked T wave abnormality, consider lateral ischemia Abnormal ECG Confirmed by SKYLER BEAR, SHON Melvin ([id number]), material expeditor ISAMAR GARDUNO ([id number]) on 07/12/2017 6:58:35 PM Referred By: Confirmed By:SHON HOLLAND MD
== END 2017-07-07 17:13 | DRG 871 ==
LOC: ERS 08:45 → ERHOLD 11:34 → IMCU/EMU 17:47 → CCU 22:55 → IMCU/EMU 06-22 12:51 → T4-A 06-27 12:11
PROVIDERS: ADMIT Internal Medicine Nephrology; ATTEND Internal Medicine Nephrology
PROC: 5A09357 Assistance with Respiratory Ventilation, Less than 24 Consecutive Hours, Continuous Positive Airway Pressure (ICD-10-PCS; 2017-06-20)
PROC: 0HBNXZZ Excision of Left Foot Skin, External Approach (ICD-10-PCS; 2017-06-25)
PROC: 0DB98ZX Excision of Duodenum, Via Natural or Artificial Opening Endoscopic, Diagnostic (ICD-10-PCS; principal; 2017-06-26)
PROC: 0DB68ZX Excision of Stomach, Via Natural or Artificial Opening Endoscopic, Diagnostic (ICD-10-PCS; 2017-06-26)
DX: A41.02 Sepsis due to Methicillin resistant Staphylococcus aureus (principal); E11.10 Type 2 diabetes mellitus with ketoacidosis without coma; J96.01 Acute respiratory failure with hypoxia; N17.0 Acute kidney failure with tubular necrosis; I21.A1 Myocardial infarction type 2; K31.84 Gastroparesis; I24.8 Other forms of acute ischemic heart disease; I48.91 Unspecified atrial fibrillation; E11.22 Type 2 diabetes mellitus with diabetic chronic kidney disease; E11.43 Type 2 diabetes mellitus with diabetic autonomic (poly)neuropathy; B37.49 Other urogenital candidiasis; J44.1 Chronic obstructive pulmonary disease with (acute) exacerbation; L03.116 Cellulitis of left lower limb; M86.8X7 Other osteomyelitis, ankle and foot; N18.3 Chronic kidney disease, stage 3 (moderate); L97.529 Non-pressure chronic ulcer of other part of left foot with unspecified severity; F17.210 Nicotine dependence, cigarettes, uncomplicated; I34.0 Nonrheumatic mitral (valve) insufficiency; E11.621 Type 2 diabetes mellitus with foot ulcer; Z89.511 Acquired absence of right leg below knee; Z91.14 Patient's other noncompliance with medication regimen; I12.9 Hypertensive chronic kidney disease with stage 1 through stage 4 chronic kidney disease, or unspecified chronic kidney disease; E86.0 Dehydration; I49.3 Ventricular premature depolarization; E66.9 Obesity, unspecified; Z68.33 Body mass index [BMI] 33.0-33.9, adult; F10.20 Alcohol dependence, uncomplicated; K20.9 Esophagitis, unspecified; K25.9 Gastric ulcer, unspecified as acute or chronic, without hemorrhage or perforation; K29.80 Duodenitis without bleeding; H26.9 Unspecified cataract; I73.9 Peripheral vascular disease, unspecified; E11.69 Type 2 diabetes mellitus with other specified complication; Z66 Do not resuscitate; G47.30 Sleep apnea, unspecified; H54.7 Unspecified visual loss; E11.319 Type 2 diabetes mellitus with unspecified diabetic retinopathy without macular edema; H35.81 Retinal edema
CPT/HCPCS: 36415; 36416; 70551; 71045; 74022; 80048; 80053; 80061; 80202; 81003; 81015; 82010; 82553; 82805; 83036; 83605; 83690; 83735; 83880; 84100; 84484; 85007; 85014; 85018; 85025; 85027; 85049; 85652; 86140; 87077; 87086; 87186; 87324; 87449; 87804; 90471; 90670; 90682; 93005; 93306; 93923; 94660; 94760; 96361; 96365; 96366; 96367; 96376; 99406; A4216; A4217; C9113; G0008; G0009; G8978-GP-CM; G8979-GP-CJ; G8987-GO-CL; G8988-GO-CJ; J0360; J1650; J1815; J2250; J2543; J2704; J3010; J3370; J7042; J7050; J7506; Q2036